=== PATIENT | female | born 1935 | race Caucasian/White ===

== ENCOUNTER 2018-03-01 20:12 | Emergency (ER) | payer MEDICARE, OTHER ==
[~2018-03-01] VITALS: Ht 162.6 cm; Wt 90.7 kg
[~2018-03-01 20:12] MED LIST: ACETAMINOPHEN325 M1 PO; ACIPHEX20 MG PO; ALLOPURINOL300 MG PO; ALTOPREV40 MG PO; AMITRIPTYLINE100 MG PO; ARICEPT10 MG PO; ASPIR-LOW81 MG PO; ATIVAN1 MG PO; CALCIUM CITRAT1 EA10 PO; CENTRUM SILVER1 EAC1 PO; CITALOPRAM HBR20 MG PO; CITRACAL + D C1 EACH PO; CITRACAL + D E1 EACH PO; COLCRYS0.6 MG PO; CYANOCOBAL1000 MCG/M IM; CYMBALTA30 MG PO; DIAZEPAM5 MG PO; DILTIAZEM 24HR180 M1 PO; DILTIAZEM ER180 M1 PO; DIOVAN40 MG PO; DIOVAN80 MG PO; DITROPAN XL5 MG PO; FERROUS SULFAT325 MG PO; FORTAMET500 MG PO; HYDROMORPHONE HC2 MG PO; I-VITE PROTECT1 EACH PO; LASIX40 MG PO; LEVOXYL50 MCG PO; LORAZEPAM1 MG PO; MACULAR VITAMI1 EACH PO; NITROSTAT0.4 MG SL; POTASSIUM CHLO20 ME1 PO; QUETIAPINE FUMA50 MG PO; SEROQUEL25 MG PO; SEROQUEL50 MG PO; TOPROL XL50 MG PO; TRAMADOL HCL50 MG PO; VALIUM2 MG PO; VICODIN ES 7.51 EACH PO
== END 2018-03-01 21:32 | disposition home or self-care (01) ==
LOC: ED 20:12
DX: S51.812A Laceration without foreign body of left forearm, initial encounter (principal); I10 Essential (primary) hypertension; E11.9 Type 2 diabetes mellitus without complications; E78.5 Hyperlipidemia, unspecified; Z90.49 Acquired absence of other specified parts of digestive tract; Z90.710 Acquired absence of both cervix and uterus; Z86.73 Personal history of transient ischemic attack (TIA), and cerebral infarction without residual deficits; Z88.2 Allergy status to sulfonamides; Z88.5 Allergy status to narcotic agent; Z79.899 Other long term (current) drug therapy; W19.XXXA Unspecified fall, initial encounter; Y92.000 Kitchen of unspecified non-institutional (private) residence as the place of occurrence of the external cause
CPT/HCPCS: 80053; 85025; 99283; G0480

== ENCOUNTER 2018-05-17 12:10 | Emergency (ER) | payer MEDICARE, OTHER ==
[~2018-05-17] VITALS: Ht 162.6 cm; Wt 90.7 kg
--- OUTSIDE RECORDS SUMMARY | ~2018-05-17 | XMS | Encounter Summary ---
Demographics + + + | Address | [address] | | | [place] [address] | + + + | Home Phone | | + + + | Preferred Language | Unknown | + + + | Marital Status | | + + + | [employer] Affiliation | 1077 | + + + | Race | Unknown | + + + | Ethnic Group | Unknown | + + + Author + + + | Author | [facility] [employer] | + + + | Organization | [facility] [employer] [facility] | + + + | Address | Unknown | + + + | Phone | Unavailable | + + + Support + + + + + | Name | Relationship | Address | Phone | + + + + + | Guevara Ceron | ECON | [address] | | | D | | [place] | | | | | [address] | | + + + + + Care Team Providers + +------+ + | Care Router Machine Operator Name | Role | Phone | + +------+ + | Shantanu Bermudez MD | PCP | | + +------+ + Reason for Visit +--------+ + | Reason | Comments | +--------+ + | Gout | | +--------+ + Encounter Details +--------+---------+ + + + | Date | Type | Department | Care Team | Description | +--------+---------+ + + + | 02// | Office | [facility] | [place], | High risk medication | | 2019 | Visit | Rheumatology [address] | Brittanie Lacey, AUTOMATIC PATTERN EDGER [address] | use (Primary Dx); | | | | [address] | [address] [facility] [address] | Chronic gout without | | | | [place] [address] | [place] [address] | tophus, unspecified | | | | [phone] | [phone] | cause, unspecified | | | | | | site; Long-term use | | | | | | of high-risk | | | | | | medication; CKD | | | | | | (chronic kidney | | | | | | disease) stage 3, | | | | | | GFR 30-59 ml/min | | | | | | (HCC) | +--------+---------+ + + + Social History + +-------+ +--------+------+ | Tobacco Use | Types | Packs/Day | Years | Date | | | | | Used | | + +-------+ +--------+------+ | Never Smoker | | | | | + +-------+ +--------+------+ + +---+---+---+ | Smokeless Tobacco: | | | | | Never Used | | | | + +---+---+---+ + + +---------+ + | Alcohol Use | Drinks/We | oz/Week | Comments | | | ek | | | + + +---------+ + | Yes | 14 | 8.4 | 2 glasses wine daily | | | Glasses | | | | | of wine | | | + + +---------+ + + + + | Sex Assigned at | Date Recorded | | | | + + + | Not on file | | + + + as of this encounter Last Filed Vital Signs + + + + | Vital Sign | Reading | Time Taken | + + + + | Blood Pressure | 132/66 | 04/04/2018 9:45 AM PST | + + + + | Pulse | 56 | 04/04/2018 9:45 AM PST | + + + + | Temperature | 36.3 C (97.4 F) | 04/04/2018 9:45 AM PST | + + + + | Respiratory Rate | - | - | + + + + | Oxygen Saturation | - | - | + + + + | Inhaled Oxygen | - | - | | Concentration | | | + + + + | Weight | 87.1 kg (192 lb) | 04/04/2018 9:45 AM PST | + + + + | Height | 157.5 cm (5' 2") | 04/04/2018 9:45 AM PST | + + + + | Body Mass Index | 35.12 | 04/04/2018 9:45 AM PST | + + + + in this encounter Instructions Patient Instructions - Marycruz Jackson CMA - 04/04/2018 9:40 AM PSTWe hope that you have experienced exceptional care today and that you found our service to be courteous and helpfu l. If you have any questions you can send us a message/request using [employer] or call our o guille at [phone]. To reach Marycruz MORALES type extension [phone]. If you are unable to reach a nurse during clinic hours, please leave a detailed message. We check our messages often and return calls in a timely manner during clinic hours. Medication refills- please contact your pharmacy first Orders for labs or imaging: Please remember that Brittanie will only call you if something i s of concern AND needs to be addressed, otherwise results will be discussed at your next of fice visit. You can also look at your results on [facility]. If you are experiencing an emergency, please call 911 in this encounter Progress Notes Brittanie Carreon, AUTOMATIC PATTERN EDGER - 04/04/2018 9:40 AM PSTFormatting of this note may be differe nt from the original. Subjective: Patient ID: Guevara Ceron is a 82 y.o. female. Reason for visit: Gout Here forFollow up Rheumatological History Patient was diagnosed in 2010 with Gout. Had an initial presentation of joint pain, swellin g and stiffness lasting >2 hours. Joint symptoms affected bilateral great toes and hands. Foot pain is so significant that she has difficulty standing or walking, and is unable to pa rticipate in ADL's. Serology: Uric acid 8.6, Elevated acute phase reactants and Negative anti-CCP Pertinent Imaging:OA changes to feet-2010 HPI Last visit:10/02/2017 Changes in overall health since last visit: no Main Concern:Gout- main concern is lower extremity swelling which improves when she keeps l egs elevated in the recliner. She is accompanied today by her sone and he reports that they are now receiving in home care for ADL's. She does report that she is taking allopurinol as instructed and no gout flares since last visit. Uric acid in 2017 was on target at 5.2 mg/dl (target < 6 mg/dl) Current medications:Allopurinol 300 mg QOD, Colchicine 0.6 mg 1 tab tid PRN gout flare . Previous Medications tried and failed: No previous gout medications tried The following portions of the patient's history were reviewed and updated as appropriate an d is available elsewhere in the record: allergies, current medications, past family history, past social history, past surgical history and problem list. Past Medical History Diagnosis Date Anemia, iron deficiency 06/27/2013 CAD (coronary artery disease) 10/12/2014 Diabetes mellitus, type 2 (HCC) Difficult intubation Gout Hyperkalemia 06/26/2013 Hyperlipidemia Hypertension Joint pain MRSA (methicillin resistant Staphylococcus aureus) Other chronic pain Primary osteoarthritis involving multiple joints 07/19/2015 Renal insufficiency - June2013: Cr 1.6, EGFR 33 06/24/2013 Visual disturbance 01/2017 macular degneration, glaucoma Review of Systems Constitutional: Negative for fatigue and fever. HENT: Negative for mouth sores and sore throat. Eyes: Negative for pain and redness. Respiratory: Negative for cough and shortness of breath. Cardiovascular: Negative for chest pain. Gastrointestinal: Negative for abdominal pain and blood in stool. Genitourinary: Negative for dysuria and hematuria. Musculoskeletal: Positive for arthralgias (hands, knees and feet) and joint swelling (feet) . Skin: Negative for rash. Neurological: Negative for numbness and headaches. Psychiatric/Behavioral: The patient is not nervous/anxious. IBrittanie, reviewed the above ROS. Objective: Physical Exam Constitutional: She is oriented to person, place, and time. She appears well-developed and well-nourished. Accompanied today by son Rony, who is present during entire visit. HENT: Head: Normocephalic. Mouth/Throat: Oropharynx is clear and moist. Eyes: Pupils are equal, round, and reactive to light. Conjunctivae are normal. Neck: Normal range of motion. Neck supple. Cardiovascular: Normal rate, regular rhythm and normal heart sounds. 1-2+ pitting edema, no open wounds Pulmonary/Chest: Effort normal and breath sounds normal. Musculoskeletal: Normal range of motion. Musculoskeletal examination of the RIGHT and LEFT upper extremity, RIGHT and LEFT lower ext remity, spine, ribs ,pelvis ,head and neck was performed Musculoskeletal examination reveals no synovitis with no tenderness,soft tissue swelling or instability in all the joints . No tophi Musculoskeletal examination reveals degenerative changes hands and feet. Using FWW Lymphadenopathy: Head (right side): No submandibular adenopathy present. Head (left side): No submandibular adenopathy present. Neurological: She is alert and oriented to person, place, and time. Skin: Skin is warm, dry and intact. hemosiderotic changes on the legs, multiple areas of bruising and scabs on lower extremitie s. Joint Exam Labs reviewed in [facility] --01/11/2018 Reviewed chart notes, labs and imaging form other provider(s) since the last visit. Assessment and Plan: Visit Diagnoses and Associated Orders: Chronic gout without tophus No clinical evidence of active disease on today's exam Continue allopurinol 300 mg QOD. Dose decreased due to CKD. Continue target uric acid <6 mg/dl Return to clinic 6 months CKD (chronic kidney disease) stage 3, GFR 30-59 ml/min ([facility]) CKD-St3, followed by and Josue JUARES Risks and benefits of a treatment plan were explained to patient. Patient will follow up with their primary care physician in regards to non-rheumatological symptoms listed under review of systems. Patient was advised to contact our office if there are any change in their symptoms. This document has been prepared with [employer] recognition system. The possibility of "s ound alike" tag machine operator errors, and additions, or deletions may occur. If there is any que stion with respect to clarity of the message being conveyed, please contact me directly for clarification. in this encounter Plan of Treatment +--------+---------+ + + + | Date | Type | Specialty | Care Team | Description | +--------+---------+ + + + | 07/26/ | Office | Nephrology | Stoney Rojas, | | | 2019 | Visit | | [address] | | | | | | [address] | | | | | | [place] [address] | | | | | | [phone] | | | | | | | | +--------+---------+ + + + | 10/03/ | Office | Rheumatology | Moralesmelanymannydominic, | | | 2018 | Visit | | [address] | | | | | | [facility] | | | | | | [place] [address] | | | | | | [phone] | | | | | | | | +--------+---------+ + + + | 10/17/ | Office | Cardiology | KuldipKathrin | | | 2018 | Visit | | [address] | | | | | | [address] | | | | | | [place] [address] | | | | | | [phone] | | | | | | | | +--------+---------+ + + + + +--------+ + + | Name | Priori | Associated Diagnoses | Order Schedule | | | ty | | | + +--------+ + + | CBC W/Auto Diff (Reflex to | Routin | High risk | Every 12 Weeks for 4 | | Manual) | e | medication use | Occurrences | | | | Chronic gout without | starting 04/04/2018 | | | | tophus, unspecified | until 03/28/2019, 1 | | | | cause, unspecified | completed | | | | site Long-term use | | | | | of high-risk | | | | | medication | | + +--------+ + + | Comprehensive metabolic panel | Routin | High risk | Every 12 Weeks for 4 | | | e | medication use | Occurrences | | | | Chronic gout without | starting 04/04/2018 | | | | tophus, unspecified | until 03/28/2019, 1 | | | | cause, unspecified | completed | | | | site Long-term use | | | | | of high-risk | | | | | medication | | + +--------+ + + | Sedimentation rate, automated | Routin | High risk | Every 12 Weeks for 4 | | | e | medication use | Occurrences | | | | Chronic gout without | starting 04/04/2018 | | | | tophus, unspecified | until 03/28/2019, 1 | | | | cause, unspecified | completed | | | | site Long-term use | | | | | of high-risk | | | | | medication | | + +--------+ + + | Uric acid | Routin | High risk | Every 16 weeks for 4 | | | e | medication use | Occurrences | | | | Chronic gout without | starting 04/04/2018 | | | | tophus, unspecified | until 03/28/2019, 1 | | | | cause, unspecified | completed | | | | site Long-term use | | | | | of high-risk | | | | | medication | | + +--------+ + + as of this encounter Procedures + +--------+ + + + | Procedure Name | Priori | Date/Time | Associated Diagnosis | Comments | | | ty | | | | + +--------+ + + + | SEDIMENTATION RATE, | Routin | 04/04/2018 | High risk | Results for this | | AUTOMATED | e | 9:59 AM | medication use | procedure are in the | | | | PST | Chronic gout without | results section. | | | | | tophus, unspecified | | | | | | cause, unspecified | | | | | | site Long-term use | | | | | | of high-risk | | | | | | medication | | + +--------+ + + + | CBC W/AUTO DIFF | Routin | 04/04/2018 | High risk | Results for this | | (REFLEX TO MANUAL) | e | 9:59 AM | medication use | procedure are in the | | | | PST | Chronic gout without | results section. | | | | | tophus, unspecified | | | | | | cause, unspecified | | | | | | site Long-term use | | | | | | of high-risk | | | | | | medication | | + +--------+ + + + | URIC ACID | Routin | 04/04/2018 | High risk | Results for this | | | e | 9:59 AM | medication use | procedure are in the | | | | PST | Chronic gout without | results section. | | | | | tophus, unspecified | | | | | | cause, unspecified | | | | | | site Long-term use | | | | | | of high-risk | | | | | | medication | | + +--------+ + + + | COMPREHENSIVE | Routin | 04/04/2018 | High risk | Results for this | | METABOLIC PANEL | e | 9:59 AM | medication use | procedure are in the | | | | PST | Chronic gout without | results section. | | | | | tophus, unspecified | | | | | | cause, unspecified | | | | | | site Long-term use | | | | | | of high-risk | | | | | | medication | | + +--------+ + + + in this encounter Results Uric acid (04/04/2018 9:59 AM) + +-------+ + + | Component | Value | Ref Range | Performed At | + +-------+ + + | URIC ACID | 4.3 | 2.2 - 7.1 mg/dL | [facility] | | | | | LABORATORY | + +-------+ + + + + | Specimen | + + | Blood | + + + + + + + | Performing | Address | City/State/Zipcode | Phone Number | | Organization | | | | + + + + + | [facility] | [address] | [place] [address] | [phone] | | LABORATORY | [address] | | | + + + + + Sedimentation rate, automated (04/04/2018 9:59 AM) + +-------+ + + | Component | Value | Ref Range | Performed At | + +-------+ + + | ESR | 24 | 0 - 30 mm/h | [facility] | | | | | LAB[facility]ATORY | + +-------+ + + + + | Specimen | + + | Blood | + + + + + + + | Performing | Address | City/State/Zipcode | Phone Number | | Organization | | | | + + + + + | [facility] | [address] | [place] [address] | [phone] | | LABORATORY | [address] | | | + + + + + Comprehensive metabolic panel (04/04/2018 9:59 AM) + + + + + | Component | Value | Ref Range | Performed At | + + + + + | SODIUM | 142 | 135 - 145 mmol/L | [facility] | | | | | LABORATORY | + + + + + | POTASSIUM | 4.4 | 3.5 - 4.9 mmol/L | [facility] | | | | | LABORATORY | + + + + + | CHLORIDE | 106 | 99 - 109 mmol/L | [facility] | | | | | LABORATORY | + + + + + | CO2 | 29 | 23 - 32 mmol/L | [facility] | | | | | LAB[facility]AT[facility] | + + + + + | ANION GAP AGAP | 11 | 5 - 20 mmol/L | [facility] | | | | | LAB[facility] | + + + + + | GLUCOSE | 109 (H) | 65 - 99 mg/dL | [facility] | | | | | LAB[facility] | + + + + + | BUN | 31 (H) | 8 - 25 mg/dL | [facility] | | | | | LAB[facility]ATORY | + + + + + | CREATININE | 1.4 (H) | 0.50 - 1.00 mg/dL | [facility] | | | | | LAB[facility] | + + + + + | BUN/CREAT | 22 | | [facility] | | | | | LAB[facility] | + + + + + | CALCIUM | 9.8 | 8.5 - 10.5 mg/dL | [facility] | | | | | LAB[facility] | + + + + + | TOTAL PROTEIN | 6.5 | 6.3 - 8.2 g/dL | [facility] | | | | | LAB[facility] | + + + + + | Albumin | 3.4 | 3.3 - 4.8 g/dL | [facility] | | | | | LAB[facility] | + + + + + | GLOBULIN | 3.1 | 1.3 - 4.9 g/dL | [facility] | | | | | LAB[facility] | + + + + + | A/G | 1.1 | 1.0 - 2.4 | [facility] | | | | | LAB[facility] | + + + + + | TBIL | 0.4 | 0.1 - 1.5 mg/dL | [facility] | | | | | LAB[facility] | + + + + + | ALK PHOS | 72 | 35 - 115 U/L | [facility] | | | | | LAB[facility] | + + + + + | AST | 13 | 10 - 45 U/L | [facility] | | | | | LAB[facility]AT[facility] | + + + + + | ALT | 16 | 10 - 65 U/L | [facility] | | | | | LABORATORY | + + + + + | EGFR | 36 (L)Comment: GFR <60: | >60 mL/min/1.73_m2 | [facility] | | | CHRONIC KIDNEY DISEASE, | | LABORATORY | | | IF FOUND OVER A 3 MONTH | | | | | PERIOD. GFR <15: KIDNEY | | | | | FAILURE. FOR | | | | | AMERICANS, MULTIPLY THE | | | | | CALCULATED GFR BY 1.210. | | | | | This eGFR is calculated | | | | | using the MDRD IDWV | | | | | traceable equation. | | | + + + + + + + | Specimen | + + | Blood | + + + + + + + | Performing | Address | City/State/Zipcode | Phone Number | | Organization | | | | + + + + + | [facility] | [address] | [place] [address] | [phone] | | LABORATORY | [address] | | | + + + + + CBC W/Auto Diff (Reflex to Manual) (04/04/2018 9:59 AM) + + + + + | Component | Value | Ref Range | Performed At | + + + + + | WBC | 6.98 | 3.80 - 11.00 10*3/uL | [facility] | | | | | LABORATORY | + + + + + | RBC | 3.94 | 3.70 - 5.10 10*6/uL | [facility] | | | | | LAB[facility] | + + + + + | HGB | 12.6 | 11.3 - 15.5 g/dL | [facility] | | | | | LABORATORY | + + + + + | HCT | 38.2 | 34.0 - 46.0 % | [facility] | | | | | LABORATORY | + + + + + | MCV | 97.0 | 80.0 - 100.0 fL | [facility] | | | | | LABORATORY | + + + + + | MCH | 31.9 | 27.0 - 34.0 pg | [facility] | | | | | LAB[facility]ATORY | + + + + + | MCHC | 32.9 | 32.0 - 35.5 g/dL | [facility] | | | | | LAB[facility]ORY | + + + + + | RDW SD | 45.9 | 37 - 53 fL | [facility] | | | | | LAB[facility]ATORY | + + + + + | PLT | 149 (L) | 150 - 400 10*3/uL | [facility] | | | | | LAB[facility]ATORY | + + + + + | MPV | 8.9 | fL | [facility] | | | | | LAB[facility] | + + + + + | DIFF TYPE | AUTOMATED | | [facility] | | | | | LAB[facility] | + + + + + | NEUTROPHILS | 62.14 | % | [facility] | | | | | [facility] | + + + + + | LYMPHOCYTES | 25.87 | % | [facility] | | | | | [facility] | + + + + + | MONOCYTES | 7.12 | % | [facility] | | | | | [facility] | + + + + + | EOSINOPHILS | 4.33 | % | [facility] | | | | | LAB[facility] | + + + + + | BASOPHILS | 0.54 | % | [facility] | | | | | LAB[facility]ATORY | + + + + + | NEUTROPHILS ABS | 4.34 | 1.90 - 7.40 10*3/uL | [facility] | | | | | LAB[facility] | + + + + + | LYMPHOCYTES ABS | 1.81 | 1.00 - 3.90 10*3/uL | [facility] | | | | | LAB[facility] | + + + + + | MONOCYTES ABS | 0.50 | 0.00 - 0.80 10*3/uL | [facility] | | | | | LAB[facility] | + + + + + | EOSINOPHILS ABS | 0.30 | 0.00 - 0.50 10*3/uL | [facility] | | | | | LAB[facility]ORY | + + + + + | BASOPHILS ABS | 0.04 | 0.00 - 0.10 10*3/uL | [facility] | | | | | LAB[facility]ATORY | + + + + + + + | Specimen | + + | Blood | + + + + + + + | Performing | Address | City/State/Zipcode | Phone Number | | Organization | | | | + + + + + | [facility] | [address] | [place] [address] | [phone] | | LABORATORY | [address] | | | + + + + + in this encounter Visit Diagnoses + + | Diagnosis | + + | High risk medication use - Primary | + + | Encounter for long-term (current) use of other medications | + + | Chronic gout without tophus, unspecified cause, unspecified site | + + | Long-term use of high-risk medication | + + | CKD (chronic kidney disease) stage 3, GFR 30-59 ml/min ([facility]) | + + | Chronic kidney disease, Stage III (moderate) | + +
--- OUTSIDE RECORDS SUMMARY | ~2018-05-17 | XMS | Clinical Summary ---
Demographics + + + | Address | [address] | | | [place] [address] | + + + | Home Phone | | + + + | Preferred Language | Unknown | + + + | Marital Status | | + + + | Muslim Affiliation | PRO | + + + | Race | White | + + + | Ethnic Group | Not or | + + + Author + + + | Author | [facility] | + + + | Organization | [facility] | + + + | Address | Unknown | + + + | Phone | Unavailable | + + + Support + + + + + | Name | Relationship | Address | Phone | + + + + + | TIANNA CERON | ECON | Unknown | | + + + + + | Omaira Ceron | ECON | [address] | | | | | [place], [place] | | | | | [address] | | + + + + + Care Team Providers + +------+ + | Care Telesales Representative Name | Role | Phone | + +------+ + | Shantanu Bermudez MD | PP | | + +------+ + Source Comments [facility] and [facility] Allergies + + + + + + | Active Allergy | Reactions | Severity | Noted | Comments | | | | | Date | | + + + + + + | Oxycodone | | | 03/02/19 | | | | | | 11 | | + + + + + + Current Medications + + +-------+---------+------+------+-------+ | Prescription | Sig. | Disp. | Refills | Star | End | Statu | | | | | | t | Date | s | | | | | | Date | | | + + +-------+---------+------+------+-------+ | multivitamin Oral | Take 1 Tab by mouth | | | | | Activ | | Tablet | once daily. | | | | | e | + + +-------+---------+------+------+-------+ | valsartan (DIOVAN) | Take 40 mg by mouth | | | | | Activ | | 40 mg Oral Tablet | once daily. | | | | | e | + + +-------+---------+------+------+-------+ | Fluoxetine HCl 20 | Take 20 mg by mouth | | | | | Activ | | mg Oral Tablet | once daily. | | | | | e | + + +-------+---------+------+------+-------+ | furosemide 40 mg | Take 40 mg by mouth | | | | | Activ | | Oral Tablet | once daily. | | | | | e | + + +-------+---------+------+------+-------+ | LEVOTHYROXINE | Take 50 mg by mouth | | | 11/0 | | Activ | | SODIUM (LEVOXYL | once daily. | | | 3/20 | | e | | ORAL) | | | | 10 | | | + + +-------+---------+------+------+-------+ | metformin SR 750 | Take 1,500 mg by | | | | | Activ | | mg Oral Tablet | mouth once daily. | | | | | e | | Sustained Release 24 | Administer with | | | | | | | hrIndications: at | evening meal. | | | | | | | night | Indications: at | | | | | | | | night | | | | | | + + +-------+---------+------+------+-------+ | metoprolol | Take 50 mg by mouth | | | | | Activ | | succinate 50 mg Oral | once daily. | | | | | e | | Tablet Sustained | | | | | | | | Release 24 hr | | | | | | | + + +-------+---------+------+------+-------+ | amitriptyline 100 | Take 100 mg by mouth | | | | | Activ | | mg Oral Tablet | once daily at | | | | | e | | | bedtime. | | | | | | + + +-------+---------+------+------+-------+ | Aspirin 81 mg Oral | Take 81 mg by mouth | | | | | Activ | | Tablet | once daily. | | | | | e | + + +-------+---------+------+------+-------+ | CYANOCOBALAMIN, | Take by mouth. | | | 11/0 | | Activ | | VITAMIN B-12, | | | | 3/20 | | e | | (VITAMIN B-12 ORAL) | | | | 10 | | | + + +-------+---------+------+------+-------+ | rabeprazole | Take 20 mg by mouth | | | 11/1 | | Activ | | (ACIPHEX) 20 mg Oral | as needed. | | | 7/20 | | e | | Tablet, Delayed | | | | 10 | | | | Release (E.C.) | | | | | | | + + +-------+---------+------+------+-------+ | nitroglycerin | Place 0.3 mg under | | | 11 | | Activ | | (NITROQUICK) 0.3 mg | tongue as needed. Do | | | 7/20 | | e | | Sublingual Tablet, | not crush. Place | | | 10 | | | | Sublingual | under tongue and | | | | | | | | allow to dissolve. | | | | | | | | Administer every 5 | | | | | | | | minutes for a | | | | | | | | maximum of 3 doses | | | | | | | | in 15 minutes. | | | | | | + + +-------+---------+------+------+-------+ | donepezil | Take 10 mg by mouth | | | | | Activ | | (ARICEPT) 10 mg Oral | once daily in the | | | | | e | | Tablet | evening. | | | | | | + + +-------+---------+------+------+-------+ | diltiazem CD 24 | Take 180 mg by mouth | | | | | Activ | | hour release 180 mg | once daily. | | | | | e | | Oral Capsule, Sust. | | | | | | | | Release 24 hr | | | | | | | + + +-------+---------+------+------+-------+ | potassium chloride | Take 20 mEq by mouth | | | | | Activ | | SR (KLOR-CON M20) | once daily. | | | | | e | | 20 mEq Oral Tab | | | | | | | | Sust.Rel. | | | | | | | | Particle/Crystal | | | | | | | + + +-------+---------+------+------+-------+ | CALCIUM | Take 1 Tab by mouth | | | 11/ | | Activ | | CITRATE/VITAMIN D3 | once daily. | | | 720 | | e | | (CALCIUM CITRATE + D | | | | 10 | | | | ORAL) | | | | | | | + + +-------+---------+------+------+-------+ | traMADol 50 mg | Take 50 mg by mouth | | | | | Activ | | Oral Tablet | two times daily. | | | | | e | + + +-------+---------+------+------+-------+ | DULoxetine | Take 30 mg by mouth | | | | | Activ | | (CYMBALTA) 30 mg | once daily. | | | | | e | | Oral Capsule, | | | | | | | | Delayed | | | | | | | | Release(E.C.) | | | | | | | + + +-------+---------+------+------+-------+ | COLCHICINE | Take by mouth. | | | | | Activ | | (COLCRYS ORAL) | | | | | | e | + + +-------+---------+------+------+-------+ | allopurinol 300 mg | Take 150 mg by mouth | | | | | Activ | | Oral Tablet | once daily. | | | | | e | + + +-------+---------+------+------+-------+ Active Problems + + + | Problem | Noted Date | + + + | Lumbar spinal stenosis | 12/29/2009 | + + + Family History + + +------+ + | Medical History | Relation | Name | Comments | + + +------+ + | Cancer | Father | | | + + +------+ + | Cancer | Mother | | | + + +------+ + + +------+--------+ + | Relation | Name | Status | Comments | + +------+--------+ + | Father | | | | + +------+--------+ + | Mother | | | | + +------+--------+ + Social History + +-------+ +--------+------+ | [...] | | + + +---------+ + | No | | | | + + +---------+ + + + + | Sex Assigned at | Date Recorded | | | | + + + | Not on file | | + + + Last Filed Vital Signs + + + + | Vital Sign | Reading | Time Taken | + + + + | Blood Pressure | 115/57 | 01/25/2011 12:53 PM PST | + + + + | Pulse | 54 | 01/25/2011 12:53 PM PST | + + + + | Temperature | 37.3 C (99.1 F) | 03/02/2010 2:18 PM PST | + + + + | Respiratory Rate | 13 | 01/25/2011 12:21 PM PST | + + + + | Oxygen Saturation | 100% | 01/18/2010 3:04 PM PST | + + + + | Inhaled Oxygen | - | - | | Concentration | | | + + + + | Weight | 84.8 kg (187 lb) | 01/25/2011 12:21 PM PST | + + + + | Height | 158.8 cm (5' 2.5") | 01/25/2011 12:21 PM PST | + + + + | Body Mass Index | 33.66 | 01/25/2011 12:21 PM PST | + + + + Plan of Treatment + + + + + | Health Maintenance | Due Date | Last Done | Comments | + + + + + | Pneumococcal (Adult) | | | | | (1 of 2 - PCV13) | 9 | | | + + + + + | Influenza (Flu) | | | | | vaccination (#1) | 8 | | | + + + + + Results Not on filefrom Last 3 Months Insurance + +--------+ +--------+ + + | Payer | Benefi | Subscriber | Type | Phone | Address | | | t Plan | ID | | | | | | / | | | | | | | Group | | | | | + +--------+ +--------+ + + | MEDICARE | MEDICA | xxxxxxxxxxx | Medica | +- | [address] | | | RE A & | | re | [phone] | [place] [address] | | | B | | | | | + +--------+ +--------+ + + | [employer] [place] | MUTUAL | [phone] | Indemn | [phone] | [employer] [place] | | MEDICARE SUPPL | OF | | ity | [address] | | | [place] | | | | [phone] | | | MEDICA | | | | | | | RE | | | | | | | SUPPL | | | | | + +--------+ +--------+ + + + +--------+ +--------+ + + | Guarantor Name | Accoun | Relation to | Date | Phone | Billing Address | | | t Type | Patient | of | | | | | | | | | | + +--------+ +--------+ + + | OFELIA CERON | Person | Self [birth year] | Home: | [address] | | | al[place]Fam | | 1936 | [phone] | [place] | | | [place] | | [phone] | + +--------+ +--------+ + +
--- OUTSIDE RECORDS SUMMARY | ~2018-05-17 | XMS | Clinical Summary ---
Demographics + + + | Address | [address] | | | [place] [address] | + + + | Home Phone | | + + + | Preferred Language | Unknown | + + + | Marital Status | | + + + | Taoist Affiliation | 1077 | + + + | Race | Unknown | + + + | Ethnic Group | Unknown | + + + Author + + + | Author | [facility] | | | and [place] | + + + | Organization | [facility] | | | and [place] | + + + | Address | Unknown | + + + | Phone | Unavailable | + + + Support + + + + + | Name | Relationship | Address | Phone | + + + + + | Nav Ceron | ECON | [address] | | | | | [place] | | | | | [address] | | + + + + + Care Team Providers + +------+ + | Care Line Closer Name | Role | Phone | + +------+ + | Lauri Brandon DO | PP | Unavailable | + +------+ + Allergies + + + + + + | Active Allergy | Reactions | Severity | Noted | Comments | | | | | Date | | + + + + + + | Milan Inhibitors | | | 03/26/19 | | | | | | 13 | | + + + + + + | Sulfa Antibiotics | | | 03/26/19 | | | | | | 13 | | + + + + + + Current Medications + + +---------+---------+------+------+-------+ | Prescription | Sig. | Disp. | Refills | Star | End | Statu | | | | | | t | Date | s | | | | | | Date | | | + + +---------+---------+------+------+-------+ | metoprolol | Take 50 mg by mouth | | | | | Activ | | succinate | Daily. | | | | | e | | (TOPROL-XL) 50 mg 24 | | | | | | | | hr tablet | | | | | | | + + +---------+---------+------+------+-------+ | furosemide (LASIX) | Take 40 mg by mouth | | | | | Activ | | 40 mg tablet | every 48 hours. | | | | | e | + + +---------+---------+------+------+-------+ | potassium chloride | Take 20 mEq by mouth | | | | | Activ | | (K-DUR) 20 mEq ER | 2 times daily. | | | | | e | | tablet | | | | | | | + + +---------+---------+------+------+-------+ | Multiple | Take 1 tablet by | | | | | Activ | | Vitamins-Minerals | mouth Daily. | | | | | e | | (CENTRUM SILVER) | | | | | | | | TABS | | | | | | | + + +---------+---------+------+------+-------+ | Multiple | Take 1 tablet by | | | | | Activ | | Minerals-Vitamins | mouth Daily. | | | | | e | | (CITRACAL PLUS BONE | | | | | | | | DENSITY) TABS | | | | | | | + + +---------+---------+------+------+-------+ | diltiazem | Take 180 mg by mouth | | | | | Activ | | (CARDIZEM CD) 180 mg | Daily. | | | | | e | | 24 hr capsule | | | | | | | + + +---------+---------+------+------+-------+ | allopurinol | Take 300 mg by mouth | | | | | Activ | | (ZYLOPRIM) 300 mg | every 48 hours. | | | | | e | | tablet | | | | | | | + + +---------+---------+------+------+-------+ | lovastatin | Take 40 mg by mouth | | | | | Activ | | (MEVACOR) 40 MG | nightly. | | | | | e | | tablet | | | | | | | + + +---------+---------+------+------+-------+ | QUEtiapine | Take 100 mg by mouth | | | | | Activ | | (SEROQUEL) 100 mg | Daily. | | | | | e | | tablet | | | | | | | + + +---------+---------+------+------+-------+ | losartan (COZAAR) | Take 100 mg by mouth | | | | | Activ | | 100 MG tablet | Daily. | | | | | e | + + +---------+---------+------+------+-------+ | Probiotic Product | Take by mouth. | | | | | Activ | | (PROBIOTIC PO) | | | | | | e | + + +---------+---------+------+------+-------+ | traMADol (ULTRAM) | Take 50 mg by mouth | | | | | Activ | | 50 mg tablet | every 6 hours as | | | | | e | | | needed for Pain. | | | | | | + + +---------+---------+------+------+-------+ | colchicine | Take 0.6 mg by mouth | | | | | Activ | | (COLCRYS) 0.6 mg | Daily. | | | | | e | | tablet | | | | | | | + + +---------+---------+------+------+-------+ | citalopram | Take 20 mg by mouth | | | | | Activ | | (CELEXA) 20 mg | Daily. | | | | | e | | tablet | | | | | | | + + +---------+---------+------+------+-------+ | oxybutynin | Take 5 mg by mouth 3 | | | | | Activ | | (DITROPAN) 5 mg | times daily. | | | | | e | | tablet | | | | | | | + + +---------+---------+------+------+-------+ | Multiple | Take by mouth. | | | | | Activ | | Vitamins-Minerals | | | | | | e | | (MACUVITE) TABS | | | | | | | + + +---------+---------+------+------+-------+ | gabapentin | Take 1 capsule by | 180 | 2 | 10/ | | Activ | | (NEURONTIN) 300 mg | mouth 2 times daily. 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 | 10/05/2015 | + + + Family History + + +------+ + | Medical History | Relation | Name | Comments | + + +------+ + | No known problems | Brother | | | + + +------+ + | Cancer | Father | | | + + +------+ + | No known problems | Maternal | | | | | Grandfath | | | | | er | | | + + +------+ + | No known problems | Maternal | | | | | Grandmoth | | | | | er | | | + + +------+ + | Alzheimer's disease | Mother | | | + + +------+ + | Diabetes | Other | | FAMILY HX | + + +------+ + | Heart disease | Other | | FAMILY HX | + + +------+ + | Hypertension | Other | | FAMILY HX | + + +------+ + | No known problems | Paternal | | | | | Grandfath | | | | | er | | | + + +------+ + | No known problems | Paternal | | | | | Grandmoth | | | | | er | | | + + +------+ + | No known problems | Son | | | + + +------+ + + +------+ + + | Relation | Name | Status | Comments | + +------+ + + | Brother | | Alive | | + +------+ + + | Brother | | | | + +------+ + + | Father | | | CANCER | | | | (Age | | | | | 79) | | + +------+ + + | Maternal Aunt | | | | + +------+ + + | Maternal Grandfather | | | | + +------+ + + | Maternal Grandmother | | | | + +------+ + + | Maternal Uncle | | | | + +------+ + + | Mother | | | ALZHEIMERS | | | | (Age | | | | | 96) | | + +------+ + + | Other | | | | + +------+ + + | Paternal Aunt | | | | + +------+ + + | Paternal Grandfather | | | | + +------+ + + | Paternal Grandmother | | | | + +------+ + + | Paternal Uncle | | | | + +------+ + + | Son | | Alive | | + +------+ + + | Son | | | | + +------+ + + Social History + +-------+ +--------+------+ [...] + + +---------+ + | Yes | 7 | 4.2 | | | | Standard | | | | | drinks or | | | | | | | | | | equivalen | | | | | t | | | + + +---------+ + + + + | Sex Assigned at | Date Recorded | | | | + + + | Not on file | | + + + Last Filed Vital Signs + + + + | Vital Sign | Reading | Time Taken | + + + + | Blood Pressure | 144/63 | 10/27/20151447 PDT | + + + + | Pulse | 46 | 10/27/20151447 PDT | + + + + | Temperature | 36.7 C (98.1 F) | 03/26/20121440 PST | + + + + | Respiratory Rate | 18 | 03/26/20121440 PST | + + + + | Oxygen Saturation | - | - | + + + + | Inhaled Oxygen | - | - | | Concentration | | | + + + + | Weight | 90.7 kg (200 lb) | 10/05/20151046 PDT | + + + + | Height | 157.5 cm (5' 2") | 10/05/20151046 PDT | + + + + | Body Mass Index | 36.58 | 10/05/2015 1047 PDT | + + + + Plan of Treatment + + + + + | Health Maintenance | Due Date | Last Done | Comments | + + + + + | Vaccine: | | | | | Dtap/Tdap/Td (1 - | 3 | | | | Tdap) | | | | + + + + + | Vaccine: Zoster (1 | | | | | of 2) | 4 | | | + + + + + | Vaccine: | | | | | Pneumococcal 65+ | 9 | | | | Low/Medium Risk (1 | | | | | of 2 - PCV13) | | | | + + + + + | PRIMARY CARE | | 10/05/2015 | | | OUTREACH-MODERATE | 7 | | | | RISK EVERY 1 YEAR | | | | + + + + + | Vaccine: Influenza | | | | | (#1) | 8 | | | + + + + + | Adult Annual | | | | | Wellness Visit | 8 | | | + + + + + Results Not on filefrom Last 3 Months Insurance + +--------+ +--------+ +---------+ | Payer | Benefi | Subscriber | Type | Phone | Address | | | t Plan | ID | | | | | | / | | | | | | | Group | | | | | + +--------+ +--------+ +---------+ | MEDICARE | MEDICA | [id number] | Medica | [phone] | | | RE | | re | [phone] | | | | PART A | | | | | | | AND B | | | | | + +--------+ +--------+ +---------+ | [employer] [place] | BUDA | [id number] | Indemn | [phone] | | | OF | | ity | 1000 | | | | [place] | | | | | | | MDCR | | | | | | | SUPPL | | | | | + +--------+ +--------+ +---------+ + +--------+ +--------+ + + | Guarantor Name | Accoun | Relation to | Date | Phone | Billing Address | | | t Type | Patient | of | | | | | | | | | | + +--------+ +--------+ + + | OFELIA CERON | Person | Self [birth year] Home: | [address] | | [place] | [place] | | 1936 | [phone] | [place] | | | [place] | | | [phone] | [phone] | + +--------+ +--------+ + +
--- OUTSIDE RECORDS SUMMARY | ~2018-05-17 | XMS | Clinical Summary ---
Demographics + + + | Address | [address] | | | [place] [address] | + + + | Home Phone | | + + + | Preferred Language | Unknown | + + + | Marital Status | | + + + | Synagogue Affiliation | 1077 | + + + | Race | Unknown | + + + | Ethnic Group | Unknown | + + + Author + + + | Author | [facility] | | | and [place] | + + + | Organization | [facility] | | | [...] [place] | | | | | [address] | | + + + + + Care Team Providers + +------+ + | Care Radioisotope Technician Name | Role | Phone | + [...] +--------+ +---------+ | MEDICARE | MEDICA | [id number] | Medica | [phone] | | | | RE | | re | [phone] | | | | PART A | | | | | | | AND B | | | | | + +--------+ +--------+ +---------+ | [employer] [place] | [place] | [id number] | Indemn | [phone] | | | OF | | ity | [address] | | | | [place] | | | | | | | [...] | | | [place] | | | [phone] | [phone] | + +--------+ +--------+ + +
--- OUTSIDE RECORDS SUMMARY | ~2018-05-17 | XMS | Clinical Summary ---
Demographics + + + | Address | [address] | | | [place] [address] | + + + | Home Phone | | + + + | Preferred Language | Unknown | + + + | Marital Status | | + + + | Muslim Affiliation | 1077 | + + + | Race | Unknown | + + + | Ethnic Group | Unknown | + + + Author + + + | Author | [facility] | + + + | Organization | [facility] | + + + | Address | Unknown | + + + | Phone | Unavailable | + + + Support + + + + + | Name | Relationship | Address | Phone | + + + + + | Ofelia Hernandez | ECON | [address] | | | D | | [place] | | | | | [address] | | + + + + + Care Team Providers + +------+ + | Care Electrical Tryout Person Name | Role | Phone | + +------+ + | Shantanu Bermudez MD | PP | | + +------+ + Allergies + + + + + + | Active Allergy | Reactions | Severity | Noted | Comments | | | | | Date | | + + + + + + | Oxycodone | Other (See Comments) | Medium | 06/19/19 | Kidney shut down | | | | | 14 | | + + + + + + | Sulfa Antibiotics | Anaphylaxis | High | 03/26/19 | | | | | | 13 | | + + + + + + Current Medications + + +--------+---------+------+------+-------+ | Prescription | Sig. | Disp. | Refills | Star | End | Statu | | | | | | t | Date | s | | | | | | Date | | | + + +--------+---------+------+------+-------+ | citalopram | Take 20 mg by mouth | | | | | Activ | | (CELEXA) 20 MG | every morning. | | | | | e | | tablet | | | | | | | + + +--------+---------+------+------+-------+ | furosemide (LASIX) | Take 40 mg by mouth | | | | | Activ | | 40 MG tablet | every other day. | | | | | e | + + +--------+---------+------+------+-------+ | lovastatin | Take 40 mg by mouth | | | | | Activ | | (MEVACOR) 40 MG | nightly. | | | | | e | | tablet | | | | | | | + + +--------+---------+------+------+-------+ | oxybutynin | Take 5 mg by mouth | | | | | Activ | | (DITROPAN) 5 MG | daily. | | | | | e | | tablet | | | | | | | + + +--------+---------+------+------+-------+ | colchicine 0.6 MG | Take 0.6 mg by mouth | | | | | Activ | | tabletIndications: | as needed. | | | | | e | | Gout | Indications: Gout | | | | | | + + +--------+---------+------+------+-------+ | nitroGLYCERIN | Place 0.4 mg under | | | | | Activ | | (NITROSTAT) 0.4 MG | the tongue every 5 | | | | | e | | SL tablet | (five) minutes as | | | | | | | | needed. | | | | | | + + +--------+---------+------+------+-------+ | CALCIUM | Take 1 tablet by | | | | | Activ | | CITRATE-VITAMIN D3 | mouth 2 (two) times | | | | | e | | PO | daily. | | | | | | + + +--------+---------+------+------+-------+ | | Take 1 tablet by | | | | | Activ | | Lactobacillus-Inulin | mouth daily. | | | | | e | | (CULTURELLE | | | | | | | | DIGESTIVE HEALTH PO) | | | | | | | + + +--------+---------+------+------+-------+ | potassium chloride | Take 10 mEq by mouth | | | | | Activ | | SA (KCHANDLER HART) | 2 (two) times | | | | | e | | 20 MEQ | daily. | | | | | | | tabletIndications: | | | | | | | | Hypokalemia | | | | | | | + + +--------+---------+------+------+-------+ | cycloSPORINE | Place 1 drop into | | | | | Activ | | (RESTASIS) 0.05 % | both eyes as needed. | | | | | e | | ophthalmic emulsion | | | | | | | + + +--------+---------+------+------+-------+ | acetaminophen | Take 1,000 mg by | | | | | Activ | | (TYLENOL) 500 MG | mouth every evening. | | | | | e | | tablet | | | | | | | + + +--------+---------+------+------+-------+ | losartan (COZAAR) | Take one tablet by | 90 | 3 | 07/0 | | Activ | | 25 MG | mouth every day | tablet | | 2/20 | | e | | tabletIndications: | | | | 18 | | | | BURAK (acute kidney | | | | | | | | injury) (HCC), | | | | | | | | Essential | | | | | | | | hypertension, | | | | | | | | benign, CKD (chronic | | | | | | | | kidney disease) | | | | | | | | stage 3, GFR 30-59 | | | | | | | | ml/min (HCC) | | | | | | | + + +--------+---------+------+------+-------+ | QUEtiapine | Take 1 tablet by | | | 08/0 | | Activ | | (SEROQUEL) 25 MG | mouth daily. | | | 08/31 | | e | | tablet | | | | 18 | | | + + +--------+---------+------+------+-------+ | metoprolol | Take 0.5 tablets by | 45 | 3 | 08/0 | | Activ | | (TOPROL-XL) 25 MG 24 | mouth daily. | tablet | | 11/01 | | e | | hr tablet | | | | 18 | | | + + +--------+---------+------+------+-------+ | gabapentin | Take 300 mg by mouth | | | 08/1 | | Activ | | (NEURONTIN) 300 MG | 2 (two) times | | | 08/31 | | e | | capsule | daily. | | | 18 | | | + + +--------+---------+------+------+-------+ | VASCEPA 1 g CAPS | Take 1 g by mouth 2 | | | 02/1 | | Activ | | | (two) times daily. | | | 20 | | e | | | | | | 19 | | | + + +--------+---------+------+------+-------+ | TRADJENTA 5 MG | | | | / | | Activ | | tablet | | | | 20 | | e | | | | | | 19 | | | + + +--------+---------+------+------+-------+ | allopurinol | Take 1 tablet by | 45 | 1 | 02/2 | | Activ | | (ZYLOPRIM) 300 MG | mouth every other | tablet | | /20 | | e | | tabletIndications: | day. | | | 19 | | | | Chronic gout without | | | | | | | | tophus, unspecified | | | | | | | | cause, unspecified | | | | | | | | site | | | | | | | + + +--------+---------+------+------+-------+ | ALPHA LIPOIC ACID | Take 1 capsule by | | | | | Activ | | PO | mouth daily. | | | | | e | + + +--------+---------+------+------+-------+ | Multiple | Take 1 capsule by | | | | | Activ | | Vitamins-Minerals | mouth daily. | | | | | e | | ([facility] | | | | | | | | PO) | | | | | | | + + +--------+---------+------+------+-------+ | magnesium chloride | Take 1 tablet by | | | | | Activ | | (MAG64) 64 mg EC | mouth 2 (two) times | | | | | e | | tablet | daily. | | | | | | + + +--------+---------+------+------+-------+ | cyanocobalamin | Take 100 mcg by | | | | | Activ | | (VITAMIN B-12) 100 | mouth daily. | | | | | e | | MCG tablet | | | | | | | + + +--------+---------+------+------+-------+ | Cholecalciferol | Take 1,000 Units by | | | | | Activ | | 1000 units capsule | mouth 2 (two) times | | | | | e | | | daily. | | | | | | + + +--------+---------+------+------+-------+ | allopurinol | TAKE ONE TABLET BY | 45 | 0 | 03/ | | Activ | | (ZYLOPRIM) 300 MG | MOUTH EVERY OTHER | tablet | | 20 | | e | | tabletIndications: | DAY | | | 19 | | | | Chronic gout without | | | | | | | | tophus, unspecified | | | | | | | | cause, unspecified | | | | | | | | site | | | | | | | + + +--------+---------+------+------+-------+ Active Problems + + + | Problem | Noted Date | + + + | Bilateral leg edema | 04/15/2018 | + + + | 1st degree AV block | 10/08/2017 | + + + | Sinus bradycardia | 10/08/2017 | + + + | Peripheral polyneuropathy | 04/05/2017 | + + + + + | Overview: Overview: Last Assessment & Plan: -manifests with | | tingling, burning in the feet, symptoms worse at night.-She is | | taking gabapentin, under the care of Last Assessment | | & Plan: -manifests with tingling, burning in the feet, symptoms | | worse at night.-She is taking gabapentin, under the care of | | | + + + + + | Primary osteoarthritis involving multiple joints | 07/19/2015 | + + + + + | Last Assessment & Plan: Stable, continue conservative | | measures.Avoid NSAID's | + + + + + | Chronic gout without tophus | 01/12/2015 | + + + + + | Last Assessment & Plan: No clinical evidence of active | | disease on today's examContinue allopurinol 300 mg QOD. Dose | | decreased due to CKD.Continue target uric acid <6 mg/dlReturn to | | clinic 6 months | + + + + + | Proteinuria | 10/26/2014 | + + + | Atherosclerosis of coronary artery | 10/12/2014 | + + + | Colitis | 12/02/2013 | + + + | CKD (chronic kidney disease) stage 3, GFR 30-59 ml/min ([facility]) | 12/02/2013 | + + + + + | Overview: Overview: Last Assessment & Plan: CKD-St3, followed | | by and Josue JUARES Last Assessment & Plan: | | CKD-St3, followed by and Josue JUARES | | Last Assessment & Plan: CKD-St3, followed by and Josue JUARES | | | + + + + + | Intestinal infection due to Clostridium difficile | 11/30/2013 | + + + | Anemia, iron deficiency | 06/27/2013 | + + + | Essential hypertension, benign | 06/24/2013 | + + + + + | Overview: Overview: Last Assessment & Plan: Hypertension, | | controlled, continue current meds at current doses (diltiazem, | | furosemide, losartan, metoprolol). Last Assessment & Plan: | | Hypertension, controlled, continue current meds at current doses | | (diltiazem, furosemide, losartan, metoprolol). | + + + + + | Mixed hyperlipidemia | 06/24/2013 | + + + + + | Overview: Overview: Last Assessment & Plan: Hyperlipidemia, | | continue current med current dose (lovastatin). Last Assessment | | & Plan: Hyperlipidemia, continue current med current dose | | (lovastatin). | + + + + + | DM2 (diabetes mellitus, type 2) ([facility]) | 06/24/2013 | + + + + + | Overview: Overview: | | Last Assessment & Plan: | | DM2, managed by PCP. | | Last Assessment & Plan: DM2, managed by PCP. | + + + + + | Depression | 06/24/2013 | + + + | Lumbar spinal stenosis | 06/24/2013 | + + + + + | Last Assessment & Plan: DJD, chronic back pain. | + + Resolved Problems + + + + | Problem | Noted | Resolved | | | Date | Date | + + + + | BURAK (acute kidney injury) | 06/21/19 | | | | 17 | 8 | + + + + | CKD (chronic kidney disease) | 01/13/20 | | | | 15 | 7 | + + + + | Abdominal pain, unspecified site | 12/03/19 | | | | 14 | 8 | + + + + + + | Last Assessment & Plan: Reports abdominal pain today | | Has had CT scan of abdomen per | | Has f/u appointment this to discuss results. | + + + + + + | Diarrhea | 12/01/19 | | | | 14 | 4 | + + + + | C. difficile colitis | 12/01/19 | | | | 14 | 4 | + + + + | Frequent loose stools | 12/01/19 | | | | 14 | 4 | + + + + | Acute on chronic renal failure | 06/28/19 | | | | 14 | 4 | + + + + | Hyperkalemia | 06/27/19 | | | | 14 | 4 | + + + + | Renal insufficiency - June2013: Cr 1.6, EGFR 33 | 06/25/19 | | | | 14 | 7 | + + + + Encounters +--------+ + + + + | Date | Type | Specialty | Care Team | Description | +--------+ + + + + | 05/02/ | Refill | | Lauri, | Chronic gout without | | 2018 | | | [facility] | nisha, unspecified | | | | | | cause, unspecified | | | | | | site | +--------+ + + + + | 04/15/ | Office | | Kathrin Christiansen | 1st degree AV block | | 2018 | Visit | | [facility] | (Primary Dx); Sinus | | | | | | bradycardia; Mixed | | | | | | hyperlipidemia; | | | | | | Essential | | | | | | hypertension, | | | | | | benign; Bilateral | | | | | | leg edema; Type 2 | | | | | | diabetes mellitus | | | | | | with stage 3 chronic | | | | | | kidney disease, | | | | | | without long-term | | | | | | current use of | | | | | | insulin ([facility]) | +--------+ + + + + | 04/04/ | Office | | Lauri, | High risk medication | | 2018 | Visit | | [facility] | use (Primary Dx); | | | | | | Chronic gout without | | | | | | tophus, unspecified [...] | | | | | (HCC) | +--------+ + + + + | 04/03/ | Documentati | | Marti Queen MA | Labs Only ([facility] | | 2019 | on Only | | | Labs 03/01/18) | +--------+ + + + + from Last 3 Months Immunizations + + + + | Name | Dates Previously Given | Next Due | + + + + | INFLUENZA, PF | 10/30/2017, 11/21/2016, 11/10/2015, | | | TRIVALENT HIGH DOSE | 11/29/2012 | | | 65 YRS [place] > | | | + + + + | Influenza, Trivalent | 11/04/2009 | | | W/Preservative | | | + + + + | Pneumococcal | 03/25/2015 | | | Conjugate 13-valent | | | + + + + | Tdap | 03/25/2015 | | + + + + | ZOSTER NON-LIVE | 08/22/2017 | | | (ADULT) | | | + + + + Family History + + +------+ + | Medical History | Relation | Name | Comments | + + +------+ + | Cancer | Father | | Lung | + + +------+ + | Hypertension | Father | | | + + +------+ + | Alzheimer's disease | Mother | | | + + +------+ + | Cancer | Mother | | Breast | + + +------+ + | Hypertension | Mother | | | + + +------+ + + +------+ + + | Relation | Name | Status | Comments | + +------+ + + | Father | | | | + +------+ + + | Mother | | | | + +------+ + [...] + + + | Blood Pressure | 118/56 | 04/15/2018 10:10 AM PST | + + + + | Pulse | 59 | 04/15/2018 10:10 AM PST | + + + + | Temperature | 36.3 C (97.4 F) | 04/04/2018 9:45 AM PST | + + + + | Respiratory Rate | 20 | 04/15/2018 10:10 AM PST | + + + + | Oxygen Saturation | 99% | 04/15/2018 10:10 AM PST | + + + + | Inhaled Oxygen | - | - | | Concentration | | | + + + + | Weight | 87.2 kg (192 lb 4.8 | 04/15/2018 10:10 AM PST | | | oz) | | + + + + | Height | 157.5 cm (5' 2") | 04/15/2018 10:10 AM PST | + + + + | Body Mass Index | 35.17 | 04/15/2018 10:10 AM PST | + + + + Plan of Treatment +--------+---------+ + + + | Date | Type | Specialty | Care Team | Description | +--------+---------+ + + + | 07/26/ | Office | | Stoney Rojas, | | | 2018 | Visit | | [facility] | | | | | | [address] | | | | | | [place] [address] | | | | | | [phone] | | | | | | | | +--------+---------+ + + + | 10/03/ | Office | | Lauri, | | | 2018 | Visit | | [address] [address] | | | | | | [facility] | | | | | | [place] [address] | | | | | | [phone] | | | | | | | | +--------+---------+ + + + | 10/17/ | Office | | Kathirn Christiansen | | | 2019 | Visit | | [facility] [address] | | | | | | [address] | | | | | | [place] [address] | | | | | | [phone] | | | | | | | | +--------+---------+ + + + + + + + + | Health Maintenance | Due Date | Last Done | Comments | + + + + + | Diabetic Eye Exam | | | | | | 4 | | | + + + + + | Diabetic Foot Exam | | | | | | 4 | | | + + + + + | DEXA SCAN SCREENING | | | | | | 9 | | | + + + + + | Hemoglobin A1c | | 11/30/2013 | | | | 5 | | | + + + + + | Vaccine: | | 03/25/2015 | | | Pneumococcal 65+ | 7 | | | | Low/Medium Risk (2 | | | | | of 2 - PPSV23) | | | | + + + + + | Vaccine: Zoster (2 | | 08/22/2017 | | | of 2) | 8 | | | + + + + + | Vaccine: | | 03/25/2015 | | | Dtap/Tdap/Td (2 - | 6 | | | | Td) | | | | + + + + + | Vaccine: Influenza | Completed | 10/30/2017, 11/21/2016, | | | | | 11/10/2015, Additional history | | | | | exists | | + + + + + Implants + +------+--------+ +--------+--------+--------+ | Implanted | Type | Area | Manufacture | Device | Expira | Model | | | | | r | | tion | / | | | | | | Identi | Date | Serial | | | | | | fier | | / Lot | + +------+--------+ +--------+--------+--------+ | Allograft Block Extra Large | | N/A: | NUVASIVE | | 04/22/ | [id number] | | Formagraft Large - | | Spine | | | 2019 | 5 / | | [id number]: Qty: 1 on | | Lumbar | | | | /FG-14 | | 06/25/2013 by Endy Cabrera, | | | | | | 05 | | MD | | | | | | | + +------+--------+ +--------+--------+--------+ | Screw Expedium 6.5x45mm Ti - | | | DEPUY | | | 1797-1 | | [id number]: Qty: 2 on | | | | | | 5-645 | | 06/25/2013 | | | | | | / / | + +------+--------+ +--------+--------+--------+ | Graft Sponge Kit Bone Infuse | | N/A: | MEDTRONIC | | 01/11/ | [id number] | | Medium 56ml - | | Spine | | | 2014 | 0 | | [id number]: Qty: 1 | | Lumbar | | | | /[id number] | | on 06/25/2013 by Deborah, | | | | | | [id number] | | MD Endy | | | | | | / | + +------+--------+ +--------+--------+--------+ | Cage Coroent [id number] Xl | | N/A: | NUVASIVE | | | [id number] | | Wide 10 Degree - | | Spine | | | | 0 / / | | [id number]: Qty: 1 on | | Lumbar | | | | | | 06/25/2013 by Endy Cabrera, | | | | | | | Willis ARANDA | | | | | | | + +------+--------+ +--------+--------+--------+ | Allograft Freeze Dried | | N/A: | LIFENET | | 03/10/ | [id number] | | Demineralized Cancellous Mix | | Spine | HEALTH | | 2016 | T | | Ic Graft Chamber 15cc - | | Lumbar | | | | /[id number] | | [id number]: Qty: | | | | | | 60-301 | | 1 on 06/25/2013 by Deborah, | | | | | | 2 / | | MD Endy | | | | | | | + +------+--------+ +--------+--------+--------+ | Allograft Freeze Dried | | N/A: | LIFENET | | 03/10/ | [id number] | | Demineralized Cancellous Mix | | Spine | HEALTH | | 2017 | T | | Ic Graft Chamber 15cc - | | Lumbar | | | | /[id number] | | [id number]: Qty: | | | | | | 12-302 | | 1 on 06/25/2013 by Deborah, | | | | | | 0 / | | MD Endy | | | | | | | + +------+--------+ +--------+--------+--------+ | Screw Set Expedium Ti - | | N/A: | FREDY AND | | | 1797-0 | | [id number]: Qty: 4 on | | Spine | FREDY | | | 2-000 | | 06/25/2013 by Endy Cabrera, | | Lumbar | | | | / / | | MD | | | | | | | + +------+--------+ +--------+--------+--------+ | Eduar Expedium Pre-Bent | | N/A: | FREDY AND | | | 1797-7 | | 5.5x55mm - [id number]: | | Spine | FREDY | | | 1-055 | | Qty: 1 on 06/25/2013 by | | Lumbar | | | | / / | | Endy Cabrera MD | | | | | | | + +------+--------+ +--------+--------+--------+ | Eduar Expedium Pre-Bent | | N/A: | FREDY AND | | | 1797-7 | | 5.5x75mm - [id number]: | | Spine | FREDY | | | 1-075 | | Qty: 1 on 06/25/2013 by | | Lumbar | | | | / / | | Enyd Cabrera MD | | | | | | | + +------+--------+ +--------+--------+--------+ | Connector Expedium Top Notch | | N/A: | FREDY AND | | | 1797-7 | | 5.5-5.5 Ti - | | Spine | FREDY | | | 1-555 | | [id number]: Qty: 2 on | | Lumbar | | | | / / | | 06/25/2013 by Endy Cabrera, | | | | | | | | MD | | | | | | | + +------+--------+ +--------+--------+--------+ Procedures + +--------+ + + + | Procedure Name | Priori | Date/Time | Associated Diagnosis | Comments | | | ty | | | | + +--------+ + + + | EKG STANDARD 12 LEAD | Routin | 04/15/2018 | 1st degree AV | Results for this | | | e | 10:17 AM | block Sinus | procedure are in the | | | | PST | bradycardia Mixed | results section. | | | | | hyperlipidemia | | | | | | Essential | | | | | | hypertension, benign | | | | | | Bilateral leg | | | | | | edema Type 2 | | | | | | diabetes mellitus | | | | | | with stage 3 chronic | | | | | | kidney disease, | | | | | | without long-term | | | | | | current use of | | | | | | insulin (HCC) | | + +--------+ + + + [...] | | + +--------+ + + + from Last 3 Months Results EKG STANDARD 12 LEAD (04/15/2018 10:17 AM) + + + + + | Component | Value | Ref Range | Performed At | + + + + + | Ventricular Rate | 59 | BPM | [facility] | + + + + + | Atrial Rate | 64 | BPM | [facility] | + + + + + | QRS Duration | 86 | ms | [facility] | + + + + + | Q-T Interval | 428 | ms | [facility] | + + + + + | QTC Calculation | 423 | ms | [facility] | | (Bezet) | | | | + + + + + | Calculated R [place] | 27 | degrees | [facility] | + + + + + | Calculated T [place] | 53 | degrees | [facility] | + + + + + | Diagnosis | Please refer to | | [facility] | | | Providers office visit | | | | | note for Providers | | | | | Interpretation.Confirmed | | | | | by [facility] Read Only, | | | | | [facility] Johnny ([id number]), | | | | | food editor [facility] [place] | | | | | ([id number]) on 04/15/2018 | | | | | 10:20:15 AM | | | + + + + + + + + + + | Performing | Address | City/State/Zipcode | Phone Number | | Organization | | | | + + + + + | [facility] | [address] | [place] [address] | | + + + + + [...] + + + | [facility] | [address] | [place] [address] | [phone] | | LABORATORY | [address]vd[address] | | [...] + + + | [facility] | [address] | [place] [address] | [phone] | | LABORATORY | [address]vd. | | | + + + + + Uric acid (04/04/2018 9:59 AM) + +-------+ [...] + + + | [facility] | [address] | [place] [address] | [phone] | | LABORATORY | [address]vd[address] | | [...] 3.4 | 3.3 - 4.8 g/dL | [facility] | | | | | LABORATORY | + + + + + | GLOBULIN | 3.1 | 1.3 - 4.9 g/dL | [facility] | | | | | LABORATORY | + + + + + | A/G | 1.1 | 1.0 - 2.4 | [facility] | | | | | LABORATORY | [...] 13 | 10 - 45 U/L | [facility] | | | | | LABORATORY | + + + + + | ALT | 16 | 10 - 65 U/L | [facility] | | | | | LABORATORY | + + + + + | EGFR | 36 (L)Comment: GFR <60: | >60 mL/min/1.73_m2 | [facility] | | | CHRONIC KIDNEY DISEASE, | [...] | | | | using the MDRD IDMS | | | | | traceable equation. | | | + + + + + + + | Specimen | + + | Blood | + + + + + + + | Performing | Address | City/State/Zipcode | Phone Number | | Organization | | | | + + + + + | [facility] | [address] | [place] [address] | [phone] | | LABORATORY | [place] | | | + + + + + from Last 3 Months Insurance + +--------+ +------+-------+ + | Payer | Benefi | Subscriber | Type | Phone | Address | | | t Plan | ID | | | | | | / | | | | | | | Group | | | | | + +--------+ +------+-------+ + | MEDICARE | MEDICA | [id number] | | | [address] | | | RE | | | | [place] [address] | | | IP-OP | | | | | + +--------+ +------+-------+ + | [employer] [place] | [employer]UAL | [id number] | | | | | | [place] | | | | | | | [place] | | | | | + +--------+ +------+-------+ + + +--------+ +--------+ + + | Guarantor Name | Accoun | Relation to | Date | Phone | Billing Address | | | t Type | Patient | of | | | | | | | | | | + +--------+ +--------+ + + | OFELIA HERNANDEZ | Person | Self [birth year] Home: | [address] | | | al/Fam | | 1936 | [phone] [place] | | | [place] | | | [phone] | [phone] | + +--------+ +--------+ + +
--- OUTSIDE RECORDS SUMMARY | ~2018-05-17 | XMS | Encounter Summary ---
Demographics + + + | Address | [address] | | | [place] [address] | + + + | Home Phone | | + + + | Preferred Language | Unknown | + + + | Marital Status | | + + + | Pentecostal Affiliation | 1077 | + + + | Race | Unknown | + + + | Ethnic Group | Unknown | + + + Author + + + | Author | [facility] | + + + | Organization | [facility] | + + + | Address | Unknown | + + + | Phone | Unavailable | + + + Support + + + + + | Name | Relationship | Address | Phone | + + + + + | Guevara Ceron | ECON | [address] | | | D | | [place] | | | | | [address] | | + + + + + Care Team Providers + +------+ + | Care Market Development Manager Name | Role | Phone | + +------+ + | Shantanu Bermudez MD | PCP | | + +------+ + Reason for Visit + + + | Reason | Comments | + + + | Medication Refill | | + + + Encounter Details +--------+--------+ + + + | Date | Type | Department | Care Team | Description | +--------+--------+ + + + | 05/02/ | Refill | [facility] | Lauri, | Chronic gout without | | 2018 | | Rheumatology [address] | tophus, unspecified | | | | [address] | [address] | cause, unspecified | | | | [place] [address] | [place] [address] | site | | | | [phone] | [phone] | | | | | | | | +--------+--------+ + + + Social History + +-------+ [...] + + + as of this encounter Plan of Treatment +--------+---------+ + + + | Date | Type | Specialty | Care Team | Description | +--------+---------+ + + + | 07/26/ | Office | Nephrology | Pippa Rojasew, | | | 2018 | Visit | | [facility] | | | | | | [address] | | | | | | [place] [address] | | | | | | [phone] | | | | | | | | +--------+---------+ + + + | 10/03/ | Office | Rheumatology | Lauri, | | | 2018 | Visit | | [address] [address] | | | | | | [facility] | | | | | | [place] [address] | | | | | | [phone] | | | | | | | | +--------+---------+ + + + | 10/17/ | Office | Cardiology | Kathrin Christiansen | | | 2019 | Visit | | [address] [address] | | | | | | [address] | | | | | | [place] [address] | | | | | | [phone] | | | | | | | | +--------+---------+ + + + as of this encounter Visit Diagnoses + + | Diagnosis | + + | Chronic gout without tophus, unspecified cause, unspecified site | + +"
--- OUTSIDE RECORDS SUMMARY | ~2018-05-17 | XMS | Encounter Summary ---
Demographics + + + | Address | [address] | | | [place] [address] | + + + | Home Phone | | + + + | Preferred Language | Unknown | + + + | Marital Status | | + + + | Jew Affiliation | 1077 | + + + | Race | Unknown | + + + | Ethnic Group | Unknown | + + + Author + + + | Author | [facility] | + + + | Organization | [facility] [employer] [facility] | + + + | Address | Unknown | + + + | Phone | Unavailable | + + + Support + + + + + | Name | Relationship | Address | Phone | + + + + + | Guevara Ceron | ECON | [address] | | | D | | [place] | | | | | [address] | | + + + + + Care Team Providers + +------+ + | Care Metal Spinner Name | Role | Phone | + [...] + + | 02// | Office | [facility] | [place], | High risk medication | | 2019 | Visit | Rheumatology [address] | Brittanie Lacey, FARMWORKER ANIMAL [address] | use (Primary Dx); | | | | [address] | [facility] [address] | Chronic gout without | | | | [place] [address] | [place] [address] | tophus, unspecified | | | | [phone] | [phone] | cause, unspecified | | | | [...] you can send us a message/request using SPark! or call our o guille at [phone]. To reach Marycruz MORALES type extension [phone]. If you are unable to reach a [...] can also look at your results on [facility]. If you are experiencing an emergency, please call 911 in this encounter Progress Notes Brittanie Carreon, FARMWORKER ANIMAL - 04/04/2018 9:40 AM PSTFormatting of this [...] extremitie s. Joint Exam Labs reviewed in [facility] --01/11/2018 Reviewed chart notes, labs and [...] kidney disease) stage 3, GFR 30-59 ml/min ([facility]) CKD-St3, followed by and Josue JUARES Risks and benefits of a treatment plan were explained to patient. Patient will follow up with their primary care physician in regards to non-rheumatological symptoms listed under review of systems. Patient was advised to contact our office if there are any change in their symptoms. This document has been prepared with Sticher recognition system. The possibility of "s ound alike" biomedical instrument technician errors, and additions, or deletions may occur. [...] [address] | | | | | | [place] [address] | | | | | | [phone] | | | | | | | | +--------+---------+ + + + | 10/03/ | Office | Rheumatology | Moralesmelanymannydominic, | | | 2018 | Visit | | [address] | | | | | | [facility] | | | | | | [place] [address] | | | | | | [phone] | | | | | | | | +--------+---------+ + + + | 10/17/ | Office | Cardiology | KuldipKathrin | | | 2018 | Visit | | [address] | | | | | | [address] | | | | | | [place] [address] | | | | | | [phone] | | | | | | | [...] + + + | [facility] | [address] | [place] [address] | [phone] | | LABORATORY | [address]vd. | | [...] | + + + + + | [facility] | [address] | [place] [address] | [phone] | | LABORATORY | Blvd. | | [...] 16 | 10 - 65 U/L | [facility] | | | | | LABORATORY | + + + + + | EGFR | 36 (L)Comment: GFR <60: | >60 mL/min/1.73_m2 | [facility] | | | CHRONIC KIDNEY DISEASE, | [...] | | | | using the MDRD IDCT | | | | | traceable equation. | | | + + + + + + + | Specimen | + + | Blood | + + + + + + + | Performing | Address | City/State/Zipcode | Phone Number | | Organization | | | | + + + + + | [facility] | [address] | [place] [address] | [phone] | | LABORATORY | [place] | | [...] + + + | [facility] | [address] | [place] [address] | [phone] | | LABORATORY | [address] | | [...] kidney disease) stage 3, GFR 30-59 ml/min ([facility]) | + + | Chronic kidney disease, Stage III (moderate) | + +
--- OUTSIDE RECORDS SUMMARY | ~2018-05-17 | XMS | Encounter Summary ---
Demographics + + + | Address | [address] | | | [place] [address] | + + + | Home Phone | | + + + | Preferred Language | Unknown | + + + | Marital Status | | + + + | Voodoo Affiliation | 1077 | + + + | Race | Unknown | + + + | Ethnic Group | Unknown | + + + Author + + + | Author | [facility] | + + + | Organization | [facility] | + + + | Address | Unknown | + + + | Phone | Unavailable | + + + Support + + + + + | Name | Relationship | Address | Phone | + + + + + | Guevara Ceron | ECON | [address] | | | D | | [place] | | | | | [address] | | + + + + + Care Team Providers + +------+ + | Care Interventional Radiology Tech Name | Role | Phone | + +------+ + | Meño Smith MD | PCP | | + +------+ + Reason for Visit + + + | Reason | Comments | + + + | Follow-up | 6 month | + + + Encounter Details +--------+---------+ + + + | Date | Type | Department | Care Team | Description | +--------+---------+ + + + | 04/15/ | Office | LEILA Carrera | Kathrin Christiansen | 1st degree AV block | | 2019 | Visit | Cardiology [place] | [address] | (Primary Dx); Sinus | | | | [address] | [address] | bradycardia; Mixed | | | | [address] | [place] [address] | hyperlipidemia; | | | | [place] [address] | [phone] | Essential | | | | [phone] | | hypertension, | | | | [...] | | | | insulin (HCC) | +--------+---------+ + + + Social [...] + + + + | Temperature | - | - | + + + + | Respiratory [...] in this encounter Instructions Patient Instructions - Kathrin Christiansen ARNP - 04/15/2018 10:00 AM PSTOk if just takes lovastatin, can work on Triglycerides with Dr. Cortes I made no changes to medications today , and will see you back in 6 months but sooner if ne eded in this encounter Progress Notes Kathrin Christiansen ARNP - 04/15/2018 10:00 AM PSTFormatting of this note may be differen t from the original. Date of visit: 04/15/2018 Primary Care Physician: MEÑO SMITH CHIEF COMPLAINT: 6 month f/u HISTORY OF PRESENT ILLNESS: Ms. Ceron is a 82 year old woman who is here today for 6 month follow up .She is accompanied today by her Son Rony , who contributed to history, which is helpful due to her poor memory. 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 Difficile which finally resolved after several tr eatments in [place], Her current and previous testing and procedures are detailed below. I saw her last in September of 2017, when I had been adjusting her medications for slow heart rate and junctional rhythm, and had previously stopped diltiazem, and decreased metoprolol and last EKG in September showed sinus rhythm at 60 bpm, and marked sinus arrhythmia with 1st degree AV block , with good blood pressure of 130/56, and she denied any dizziness, or sync ope. Today she reports she has felt well, and denies any chest pain, palpitations, dizziness, o r syncope. She also denies any signs or symptoms of stroke or transient ischemic attack. Her son reports he has problems with lower extremity edema have resolved in the last few weeks, and he reports since their meals are being supervised by his , that they are now much more compliant with low-sodium diabetic compliant meals. Her uplgiunl-yk-fcw also orga annemarie and administers her medications to make sure she takes everything as ordered He is also now seeing Dr. vijay Charles for her diabetes She and her now receive home care to help with bathing and dressing 3 times per week. She is still not very active, though her son and daughter in law trying to her insurer to be more mobile. She last saw nephrology MOR Rojas on 01/16/2018 and his notes document he contin ued losartan 25 mg daily and did not change any other vasoactive medications She also saw Rheumatology on 2018 for gout and note reviewed. She continues to drink 2 glasses of wine with dinner but denies drinking any more than t his. She was seen in the emergency room at [facility] on March 01, 2018 after a fall and jacobs stained a skin care to her left arm but alcohol was noted to be 170 They brought in all her medication bottles to clinic visit today, and reviewed them shellyfredo danikay with them. Since I stopped her last, her fenofibrate has been stopped, and she was star loulou on VASCEPA for high triglycerides. REVIEW OF SYSTEMS: Negative except for pertinent items noted in HPI. Constitutional: report mild ongoing fatigue, but denies any unexplained weight lo ss. Appetite is good. Weight is stable. Denies night sweats fevers or chills HENT: Denies nosebleeds. Reports mild hearing loss. Denies dysphagia Eyes:reports macular degeneration, glaucoma Denies visual disturbance or double vision. Respiratory/Sleep:: Mild ARROYO. Denies cough Denies hemoptysis or excessive sputum producti on. Denies snoring, orthopnea, PND. Cardiovascular: Hx carotid artery disease Denies chest pain, palpitations and leg swellin g. Denies history of rheumatic fever. Denies claudication . Gastrointestinal:Hx diverticulosis . Hx C. Difficile Denies history of gastroesophageal re flux disease . Denies nausea, vomiting, abdominal pain and blood in stool. Genitourinary: Denies hematuria. History hysterectomy Hx chronic kidney disease(Dr. Cas roque/Stoney Rojas ) Musculoskeletal: Hx Spinal stenosis, Hx multiple hip replacements, back surgery: osteoart hritis Multiple joints, ambulates with 4 wheeled walker Denies myalgias, Skin: Denies color change. Denies rash or lesions Neurological: Hx carpel tunnel release. Denies history of stroke/Transient ischemic attack. Denies history of seizures. Denies dizziness, syncope and numbness. Denies focal motor or s ensory deficits Hematological/Oncology history of multiple blood transfusions , history of anemia Does not bruise/bleed easily. Denies history of cancer Endocrine: Denies diabetes or thyroid disease. Denies excessive thirst or hunger. Psychiatric/Behavioral: History of bipolar disorder . Vaccines: Current on flu vaccine 11/2016. Current on pneumonia vaccine. Habits/Social : Denies history of smoking. EtOH use: drinks 2 glasses of wine daily . Dri nks 1 serving of caffeine daily . Denies recreational or illicit drug use. Exercises wit h occasional walking with walker and tolerates. 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 [facility] Out[facility] Medications Prior to Visit Medication Sig Dispense Refill acetaminophen (TYLENOL) 500 MG tablet Take 1,000 mg by mouth every evening. allopurinol (ZYLOPRIM) 300 MG tablet Take 1 tablet by mouth every other day. 45 tablet 1 CALCIUM CITRATE-VITAMIN D3 PO Take 1 tablet by mouth 2 (two) times daily. citalopram (CELEXA) 20 MG tablet Take 20 mg by mouth every morning. colchicine 0.6 MG tablet Take 0.6 mg by mouth as needed. Indications: Gout cycloSPORINE (RESTASIS) 0.05 % ophthalmic emulsion Place 1 drop into both eyes as neede d. furosemide (LASIX) 40 MG tablet Take 40 mg by mouth every other day. gabapentin (NEURONTIN) 300 MG capsule Take 300 mg by mouth 2 (two) times daily. Lactobacillus-Inulin ([facility] Siving [facility] [place] PO) Take 1 tablet by mouth daily. losartan (COZAAR) 25 MG tablet Take one tablet by mouth every day 90 tablet 3 lovastatin (MEVACOR) 40 MG tablet Take 40 mg by mouth nightly. metoprolol (TOPROL-XL) 25 MG 24 hr tablet Take 0.5 tablets by mouth daily. 45 tablet 3 nitroGLYCERIN (NITROSTAT) 0.[address] 0.4 mg under the tongue every 5 (five) minutes as needed. oxybutynin (DITROPAN) 5 MG tablet Take 5 mg by mouth daily. potassium chloride SA (K-DUR,KLOR-CON) 20 MEQ tablet Take 10 mEq by mouth 2 (two) times daily. QUEtiapine (SEROQUEL) 25 MG tablet Take 1 tablet by mouth daily. TRADJENTA 5 MG tablet VASCEPA 1 g CAPS Take 1 g by mouth 2 (two) times daily. DILT-XR 180 MG 24 hr capsule fenofibrate 48 MG tablet Take 1 tablet by mouth daily. (Patient not taking: Reported on 04/15/2018) 90 tablet 3 rabeprazole (ACIPHEX) 20 MG tablet Take 20 mg by mouth as needed. traMADol (ULTRAM) 50 MG tablet Take 50 mg by mouth daily as needed for Pain (rarely use s). Seldom needed No facility-administered medications prior to visit. PHYSICAL EXAM: Wt Readings from Last 3 Encounters: 04/15/18 87.2 kg (192 lb 4.8 oz) 04/04/18 87.1 kg (192 lb) 01/16/18 93.4 kg (205 lb 12.8 oz) Temp Readings from Last 3 Encounters: 04/04/18 97.4 F (36.3 C) 10/02/17 97.5 F (36.4 C) 08/08/17 97.8 F (36.6 C) (Temporal) BP Readings from Last 3 Encounters: 04/15/18 118/56 04/04/18 132/66 01/16/18 134/54 Pulse Readings from Last 3 Encounters: 04/15/18 59 04/04/18 56 01/16/18 72 GENERAL: Well developed, well nourished, in no distress. Appears approximately stated age . HEENT: Normocephalic, atraumatic. EYES: PERRL, EOM normal. MOUTH: Oral mucosae moist, dentition adequate no lesions noted NECK: No JVD, lymphadenopathy, thyromegaly, bruits. Carotid pulses are 2+ bilaterally LUNGS/CHEST: Clear bilaterally, with no rales, rhonchi or wheezing noted, respirations unl abored HEART: Nondisplaced PMI, regular rate and rhythm, S1, S2 normal. No murmurs, rubs or gall ops noted. ABDOMEN: Soft, nontender, no organomegaly, masses or bruits. Bowel sounds are normal in a ll 4 quadrants. The abdominal aortic pulsation is not palpable. EXTREMITIES: Trace LE edema bilaterally,hemosiderotic changes on the legs, multiple areas of bruising and scabs on lower extremities. . Radial pulses 2+ bilaterally. Femoral pulses are 2+ bilaterally without bruits. DP and PT pulses are 2+ bilaterally. No clubbing. SKIN: Warm and dry, capillary refill is normal, Dry irritated patches of skin to right c heek,and scaling reddened skin to lower legs NEUROLOGIC: Awake, alert and oriented x 3. No focal motor or sensory deficits. PSYCHIATRIC: Appropriate, affect appears normal DATA: Blood tests: Lab Results Component Value Date WBC 6.98 04/04/2018 RBC 3.94 04/04/2018 HGB 12.6 04/04/2018 HCT 38.2 04/04/2018 PLT 149 (L) 04/04/2018 Lab Results Component Value Date NA 142 04/04/2018 K 4.4 04/04/2018 CL 106 04/04/2018 CO2 29 04/04/2018 ANIONGAP 11 04/04/2018 GLUF 109 (H) 04/04/2018 BUN 31 (H) 04/04/2018 CREATININE 1.4 (H) 04/04/2018 BCR 22 04/04/2018 CA 9.8 04/04/2018 CA 9.8 04/05/2016 EGFR 36 (L) 04/04/2018 Lab Results Component Value Date GLUF 109 (H) 04/04/2018 HGBA1C 5.6 11/30/2013 Lab Results Component Value Date BNP 67 07/03/2016 CKTOTAL 472 (H) 06/27/2013 TSH 3.60 06/13/2016 CRP 10.1 (A) 12/24/2015 No results found for: METF, NMETFX, TFNMFX, IDFOSFK78POA, YVAOOY34AFR, TOTEPI Echo: Last Echo : 2017: ([facility]). EF 60-65 percent. LV normal in size and wall thic kness. Mild, grade 1 diastolic dysfunction, normal for age unable to assess wall motion. R V normal in size and function. Normal size atrium. Aortic valve trileaflet, mildly thicken ed and calcified. No aortic regurgitation or stenosis and 2-D images. aortic valve area by continuity equation is 1.6cm, ( suspected to be falsely low.) maximum velocity across the aortic valve is 1.81m/s Aortic Valve: Peak/mean gradient across the valve 13.16mmHg/6.9 0mmHg.LVOT Area: 2.69 cm2 LVOT Diam:1.85 cm. no mitral regurgitation or mitral valve prolaps e or mitral stenosis. Mild mitral calcification of the anterior and posterior leaflet. Mil d TR. No pulmonary hypertension. RVSP 26.59 mmHg. IVC normal, normal CVP. Aortic root, a scending aorta, and aortic arch are normal Echo: 2012: ([facility]). LV normal in size, wall thickness. EF 65 percent. Defi nity used. RV normal in size and function. Biatrial size normal. Sclerosis of the aortic valve leaflets, no stenosis regurgitation. Mild posterior mitral annular calcification and mild mitral regurgitation. Tricuspid valve normal, mild TR. Tricuspid regurgitant a size 3 5 mmHg, RAP estimated at 5 mmHg. RV and pulmonary artery pressures are mildly elevated at 4 0 mmHg NON CARDIAC IMAGING?PROCEDURES Chest x-ray: 06/13/2016: ([facility]). Mildly enlarged cardiac silhouette, normal pulmona ry vasculature. No effusions. Aorta mildly calcified. VASCULAR IMAGING/PROCEDURES: Last Carotid ultrasound: 02/19/2017. Borderline mild stenosis to left proximal internal alonso tid artery. No significant stenosis within the right internal carotid artery. Bilateral ve rtebral arteries demonstrated antegrade flow Carotid ultrasound: 07/12: ([facility]): Left internal carotid artery 50-69 percent with normal carotid ratio, estimated to be <50 percent stenosis. Right internal carotid ar della 16-49 percent. Normal antegrade flow bilaterally to vertebral artery Last Stress Test, 11/03/2015 ([facility]): Lexiscan, ECG (-) for ischemia, no arrhythmias, images benign, LVEF 55%. EKG: EK09/22: Marked sinus bradycardia with first-degree AV block. Low voltage QRS to i nferior leads with poor R-wave progression Rate 42 bpm, IA 252 ms, QRS 90 ms, QTC 395 ms EK2016: Junctional rhythm, 50 bpm. QRS 80 ms, QTC 412 ms, low voltage QRS to inf erior leads EK09/20/2017: SR with marked sinus arrhythmia, 1st degree AVB. Rate 60 bpm, IA 272 ms, QR S 88 ms, QTC 422, non specific ST abn, tracing personally reviewed by me. EK10/08/2017: Sinus rhythm with first-degree AV block Rate 74 bpm, IA 260 ms, QRS 86 ms, QTC 439 ms, stable low voltage QRS to inferior leads, tracing personally reviewed by me. EK04/15/2018: Sinus bradycardia with first-degree AV block. Rate 59 bpm, IA 280 ms, QRS 8 6 ms, QTC 423 ms, stable low voltage QRS to inferior leads ,tracing personally reviewed by merrick strickland, poor P wave morphology LABS: Labs: 2016: Sodium 139, potassium 4.3, chloride 97, glucose 147, BUN 18, creatinine 1.42, GFR 35, albumin 3.6. Magnesium 1.7. CBC: WBC 7.5, hemoglobin 12.8, hematocrit 38.4, platelets 174. PTH, intact: Calcium 9.5, PTH 30.12 Labs: 03/05/2017: Lipids: Cholesterol 143, triglycerides 230, HDL 63, LDL 34, VLDL 46, ratio 2.3, non-HDL cholesterol 80. CMP: Sodium 143, potassium 4.7, chloride 104, glucose 138, BU N 31, creatinine 1.9, GFR 39, AST 25, ALT 30, alk phos 55, total bilirubin 0.5, albumin 4. Thyroid: TSH 3.76 Labs: 09/06/2017: : Lipids: ( Mevacor 40 mg) Cholesterol 119, triglycerides 350, HDL 55,, V LDL 70, ratio 2.2, non-HDL cholesterol 64. CMP: Sodium 139 potassium 4.4, chloride 100, glu cose 194, BUN 22, creatinine 1.42, GFR 35, AST 26, ALT 26, alk phos 47, total bilirubin 0.4, albumin 4.1 Hgb A1C 6.3 (134) Labs: 03/01/2018: ([facility]): CBC: WBC 8.6 RBC 3.96, hemoglobin 12.7, hematocrit 38.7, platele ts 149. CMP: Glucose 107, BUN 38, creatinine 1.7, GFR 29, sodium 137, potassium 3.9, chlori de 102, albumin 3.8 , total bilirubin 0.3, AST 16, ALT 12, alk phos 34, alcohol 170. ASSESSMENT & PLAN: She is here today with her son today for 6 month follow up. She reports feeling well, and heart rate and blood pressure well controlled on current medi cations,but EKG still shows sinus bradycardia with stable first-degree AV block, though P wa ve less defined today. She is asymptomatic for any lightheadedness or dizziness, and blood pressure well control led. Her labs performed in December detailed above show a normal CBC, and CMP normal except fo r stable low GFR, with normal liver enzymes, but noted she had elevated alcohol level when s he was in the emergency room of 170. Since I saw her last shoulder fenofibrate has been stopped, and she was started on VASCEP A for high triglycerides by her communications scientist Dr. Cortes. Though her heart rate is on the slower side, overall she seems stable, and I made no ch anges to her cardiac medications today, and she should continue metoprolol succinate 12. 5 m g qhs, losartan 25 mg daily, lovastatin 40 mg qhs , furosemide 40 mg every other day,and potassium 10 mEq bid. I did not order any labs, as she and her son reports she is getting follow-up on her lipi ds by her communications scientist, Dr. Cortes, regular labs performed by nephrology. She seems to be improved with having her family and home health provided her more heart h ealthy diabetic friendly meals, and also having her medications organized by her daughter-in -law. I will see her back in 6 months, but sooner if needed and will order an Echo to be done a fter I see her back. 1. 1st degree AV block 2. Sinus bradycardia 3. Mixed hyperlipidemia 4. Essential hypertension, benign 5. Bilateral leg edema 6. Type 2 diabetes mellitus with stage 3 chronic kidney disease, without long-term current use of insulin ([facility]) Orders Placed This Encounter Procedures Electrocardiogram, 12-lead The following portions of the patient's history were personally reviewed by me and updated as appropriate: EKG tracings, previous specialty provider and PCP notes,any Hospital admission and discharg e summaries, any ER records , current and previous cardiac testing and procedure reports and data, medication bottles brought to visit today personally reviewed by me. Allergies, current medications.labs Family history, past medical history, past social history, past surgical history. Problem list. [facility] Cardiology 04/15/2018in this encounter Plan of Treatment +--------+---------+ + + + | Date | Type | Specialty | Care Team | Description | +--------+---------+ + + + | 07/26/ | Office | Nephrology | Stoney Rojas | | | 2018 | Visit | | M[facility] [address] | | | | | | [address] | | | | | | [place] [address] | | | | | | [phone] | | | | | | | | +--------+---------+ + + + | 10/03/ | Office | Rheumatology | Lauri, | | | 2018 | Visit | | [address] | | | | | | [place] | | | | | | [place] [address] | | | | | | [phone] | | | | | | | | +--------+---------+ + + + | 10/17/ | Office | Cardiology | Kathrin Christiansen | | | 2019 | Visit | | [address] | | | | | | [address] | | | | | | [place] [address] | | | | | | [phone] | | | | | | | | +--------+---------+ + + + as of this encounter Procedures [...] + + + in this encounter Results EKG STANDARD 12 LEAD (04/15/2018 10:17 [...] + + + + | Calculated R [place] | 27 | degrees | [facility] EKG | + + + + + | Calculated T [place] | 53 | degrees | [facility] EKG | + + + + + | Diagnosis | Please refer to | | [facility] EKG | | | Providers office visit | | | | | note for Providers | | | | | Interpretation.Confirmed | | | | | by [facility] [employer] Read Only, | | | | | [facility] Johnny ([id number]), | | | | | newspaper editor managing Home [place] | | | | | ([id number]) on 04/15/2018 | | | | | 10:20:15 AM | | | + + + + + + + + + + | Performing | Address | City/State/Zipcode | Phone Number | | Organization | | | | + + + + + | [facility] | [address] | [place] [address] | | + + + + + in this encounter Visit Diagnoses + + | Diagnosis | + + | 1st degree AV block - Primary | + + | First degree atrioventricular block | + + | Sinus bradycardia | + + | Other specified cardiac dysrhythmias | + + | Mixed hyperlipidemia | + + | Essential hypertension, benign | + + | Bilateral leg edema | + + | Edema | + + | Type 2 diabetes mellitus with stage 3 chronic kidney disease, without long-term | | current use of insulin (HCC) | + +
--- OUTSIDE RECORDS SUMMARY | ~2018-05-17 | XMS | Clinical Summary ---
Demographics + + + | Address | [address] | | | [place] [address] | + + + | Home Phone | | + + + | Preferred Language | Unknown | + + + | Marital Status | | + + + | Pentecostalism Affiliation | PRO | + + + [...] [place], [place] | | | | | [address] | | + + + + + Care Team Providers + +------+ + | Care Aquaculturist Name | Role | Phone | + +------+ + | Shantanu Bermudez MD | PP | | + +------+ + Source Comments BREANASANDRA is fully live on both [facility] Ambulatory and [facility] InPatient.[facility] Allergies + + + + + [...] | re | [address] | [place] [address] | | | B | | | | | + +--------+ +--------+ + + | [employer] [place] | MUTUAL | [phone] | Indemn | [phone] | [employer] [place] | | MEDICARE SUPPL | OF | | ity | [address] | [address] | | | [place] | | | | [phone] | | | MEDICA | | | [...] | patsy | | | [phone] | [phone] | + +--------+ +--------+ + +
--- OUTSIDE RECORDS SUMMARY | ~2018-05-17 | XMS | Encounter Summary ---
Demographics + + + | Address | [address] | | | [place] [address] | + + + | Home Phone | | + + + | Preferred Language | Unknown | + + + | Marital Status | | + + + | Hinduism Affiliation | 1077 | + + + | Race | Unknown | + + + | Ethnic Group | Unknown | + + + Author + + + | Author | [facility] | + + + | Organization | [facility] [employer] [facility] | + + + | Address | Unknown | + + + | Phone | Unavailable | + + + Support + + + + + | Name | Relationship | Address | Phone | + + + + + | Guevara Ceron | ECON | [address] | | | D | | [place] | | | | | [address] | | + + + + + Care Team Providers + +------+ + | Care Canvas Goods Supervisor Name | Role | Phone | + +------+ + | Shantanu Bermudez MD | PCP | | + +------+ + Reason for Visit + + + | Reason | Comments | + + + | Labs Only | [facility] 03/01/18 | + + + Encounter Details +--------+ + + + + | Date | Type | Department | Care Team | Description | +--------+ + + + + | 04/03/ | Documentati | LEILA Luebbering | Marti Queen MA | Labs Only ([facility] | | 2019 | on Only | [facility] | | Labs 03/01/18) | | | | [address] [facility] [address] | | | | | | [address] | | | | | | [place] [address] | | | | | | [phone] | | | +--------+ + + + + Social History + +-------+ [...] Nephrology | Stoney Rojas, | | | 2018 | Visit | | [address] | | | | | | [address] | | | | | | [place] [address] | | | | | | [phone] | | | | | | | | +--------+---------+ + + + | 10/03/ | Office | Rheumatology | Lauri, | | | 2018 | Visit | | [address] | | | | | | [facility] | | | | | | [place] [address] | | | | | | [phone] | | | | | | | | +--------+---------+ + + + | 10/17/ | Office | Cardiology | Kathrin Christiansen | | | 2018 | Visit | | [address] | | | | | | [address] | | | | | | [place] [address] | | | | | | [phone] | | | | | | | | +--------+---------+ + + + as of this encounter Visit Diagnoses Not on filein this encounter"
--- OUTSIDE RECORDS SUMMARY | ~2018-05-17 | XMS | Clinical Summary ---
Demographics + + + | Address | [address] | | | [place] [address] | + + + | Home Phone | | + + + | Preferred Language | Unknown | + + + | Marital Status | | + + + | Amish Affiliation | 1077 | + + + | Race | Unknown | + + + | Ethnic Group | Unknown | + + + Author + + + | Author | [facility] [employer] [facility] | + + + | Organization | [facility] [employer] [facility] | + + + | Address | Unknown | + + + | Phone | Unavailable | + + + Support + + + + + | Name | Relationship | Address | Phone | + + + + + | Ofelia Hernandez | ECON | [address] | | | D | | [place] | | | | | [address] | | + + + + + Care Team Providers + +------+ + | Care Insurance Loss Control Surveyor Name | Role | Phone | + [...] | | | | e | | ([facility] | | | | | | [...] disease) stage 3, GFR 30-59 ml/min ([facility]) | 12/02/2013 | + + + [...] | DM2 (diabetes mellitus, type 2) ([facility]) | 06/24/2013 | + + + [...] | | | | | insulin ([facility]) | +--------+ + + + + [...] [address] | | | | | | [place] [address] | | | | | | [phone] | | | | | | | | +--------+---------+ + + + | 10/03/ | Office | | Lauri, | | | 2018 | Visit | | [address] | | | | | | [facility] | | | | | | [place] [address] | | | | | | [phone] | | | | | | | | +--------+---------+ + + + | 10/17/ | Office | | Kathrin Christiansen | | | 2019 | Visit | | [address] | | | | | | [address] | | | | | | [place] [address] | | | | | | [phone] | | | | | | | [...] N/A: | NUVASIVE | | 04/22/ | [id number] | | Formagraft Large - | | Spine | | | 2019 | 5 / | | [id number]: Qty: 1 on | | Lumbar | | | | /[id number] | | 06/25/2013 by Endy Cabrera, | | | | | | 05 | | MD | | | | | | | + +------+--------+ +--------+--------+--------+ | Screw Expedium 6.5x45mm Ti - | | | DEPUY | | | 1797-1 | | [id number]: Qty: 2 on | | | | | | 5-645 | | 06/25/2013 | | | | | | / / | + +------+--------+ +--------+--------+--------+ | Graft Sponge Kit Bone Infuse | | N/A: | MEDTRONIC | | 01/11/ | [id number] | | Medium 56ml - | | Spine | | | 2014 | 0 | | [id number]: Qty: 1 | | Lumbar | | | | /[id number] | | on 06/25/2013 by Deborah, | | | | | | 05AAL | | MD Endy | | | | | | / | + +------+--------+ +--------+--------+--------+ | Cage Coroent [id number] Xl | | N/A: | NUVASIVE | | | [id number] | | Wide 10 Degree - | | Spine | | | | 0 / / | | [id number]: Qty: 1 on | | Lumbar | | | | | | 06/25/2013 by Endy Cabrera, | | | | | | | Willis ARANDA | | | | | | | + +------+--------+ +--------+--------+--------+ | Allograft Freeze Dried | | N/A: | LIFENET | | 03/10/ | [id number] | | Demineralized Cancellous Mix | | Spine | HEALTH | | 2016 | T | | Ic Graft Chamber 15cc - | | Lumbar | | | | /[id number] | | [id number]: Qty: | | | | | | 60-301 | | 1 on 06/25/2013 by Deborah, | | | | | | 2 / | | MD Endy | | | | | | | + +------+--------+ +--------+--------+--------+ | Allograft Freeze Dried | | N/A: | LIFENET | | 03/10/ | [id number] | | Demineralized Cancellous Mix | | Spine | HEALTH | | 2017 | T | | Ic Graft Chamber 15cc - | | Lumbar | | | | /[id number] | | [id number]: Qty: | | | | | | 12-302 | | 1 on 06/25/2013 by Deborah, | | | | | | 0 / | | MD Endy | | | | | | | + +------+--------+ +--------+--------+--------+ | Screw Set Expedium Ti - | | N/A: | FREDY AND | | | 1797-0 | | [id number]: Qty: 4 on | | Spine | FREDY | | | 2-000 | | 06/25/2013 by Endy Cabrera, | | Lumbar | | | | / / | | MD | | | | | | | + +------+--------+ +--------+--------+--------+ | Eduar Expedium Pre-Bent | | N/A: | FREDY AND | | | 1797-7 | | 5.5x55mm - [id number]: | | Spine | FREDY | | | 1-055 | | Qty: 1 on 06/25/2013 by | | Lumbar | | | | / / | | Endy Cabrera MD | | | | | | | + +------+--------+ +--------+--------+--------+ | Eduar Expedium Pre-Bent | | N/A: | FREDY AND | | | 1797-7 | | 5.5x75mm - [id number]: | | Spine | FREDY | | [...] FREDY | | | 1-555 | | [id number]: Qty: 2 on | | Lumbar | [...] + + + + | Calculated R [place] | 27 | degrees | [facility] | + + + + + | Calculated T [place] | 53 | degrees | [facility] | + + + + + | Diagnosis | Please refer to | | [facility] | | | Providers office visit | | | | | note for Providers | | | | | Interpretation.Confirmed | | | | | by [facility] [place] Read Only, | | | | | ICA Johnny ([id number]), | | | | | image editor Home Rogers | | | | | ([phone]) on 04/15/2018 | | | | | 10:20:15 AM | | | + + + + + + + + + + | Performing | Address | City/State/Zipcode | Phone Number | | Organization | | | | + + + + + | [facility] | [address] | [place] [address] | | + + + + + [...] + + + | [facility] | [address] | [place] [address] | [phone] | | LABORATORY | Blvd. | | [...] + + + | [facility] | [address] | [place] [address] | [phone] | | LABORATORY | Blvd. | | [...] + + + | [facility] | [address] | [place] [address] | [phone] | | LABORATORY | Blvd. | | [...] 3.4 | 3.3 - 4.8 g/dL | [facility] | | | | | LABORATORY | + + + + + | GLOBULIN | 3.1 | 1.3 - 4.9 g/dL | [facility] | | | | | LABORATORY | + + + + + | A/G | 1.1 | 1.0 - 2.4 | [facility] | | | | | LABORATORY | [...] 13 | 10 - 45 U/L | [facility] | | | | | LABORATORY | + + + + + | ALT | 16 | 10 - 65 U/L | [facility] | | | | | LABORATORY | + + + + + | EGFR | 36 (L)Comment: GFR <60: | >60 mL/min/1.73_m2 | [facility] | | | CHRONIC KIDNEY DISEASE, | [...] + + + | [facility] | [address] | [place] [address] | [phone] | | LABORATORY | [place]. | | [...] +------+-------+ + | MEDICARE | MEDICA | [id number] | | | [address] | | | RE | | | | [place] [address] | | | IP-OP | | | | | + +--------+ +------+-------+ + | [employer] [place] | MUTUAL | [id number] | | | | | | [place] | | | | | | | [place] | | | | | + +--------+ [...] Self | [birth year] Home: | [address] | | | al/Fam | | 1936 | [phone] [place] | | | [place] | | | [phone] | [phone] | + +--------+ +--------+ + +
--- OUTSIDE RECORDS SUMMARY | ~2018-05-17 | XMS | Encounter Summary ---
Demographics + + + | Address | [address] | | | [place] [address] | + + + | Home Phone | | + + + | Preferred Language | Unknown | + + + | Marital Status | | + + + | Latter Day Affiliation | 1077 | + + + | Race | Unknown | + + + | Ethnic Group | Unknown | + + + Author + + + | Author | [facility] | + + + | Organization | [facility] [employer] [facility] | + + + | Address | Unknown | + + + | Phone | Unavailable | + + + Support + + + + + | Name | Relationship | Address | Phone | + + + + + | Guevara Ceron | ECON | [address] | | | D | | [place] | | | | | [address] | | + + + + + Care Team Providers + +------+ + | Care Routing Machine Operator Name | Role | Phone [...] + | 04/03/ | Documentati | LEILA Montezuma | Marti Queen MA | [facility] ([facility] | | 2019 | on Only | [facility] | | Labs 03/01/18) | | | | [address] | | | | | | [address] | | | | | | [place] [address] | | | | | | [phone] | | | +--------+ + + + [...] [address] | | | | | | [place] [address] | | | | | | [phone] | | | | | | | | +--------+---------+ + + + | 10/03/ | Office | Rheumatology | Lauri, | | | 2018 | Visit | | [address] | | | | | | [facility] | | | | | | [place] [address] | | | | | | [phone] | | | | | | | | +--------+---------+ + + + | 10/17/ | Office | Cardiology | Kathrin Christiansen | | | 2018 | Visit | | [address] | | | | | | [address] | | | | | | [place] [address] | | | | | | [phone] | | | | | | | | +--------+---------+ + + + as of this encounter Visit Diagnoses Not on filein this encounter"
--- OUTSIDE RECORDS SUMMARY | ~2018-05-17 | XMS | Encounter Summary ---
Demographics + + + | Address | [address] | | | [place] [address] | + + + | Home Phone | | + + + | Preferred Language | Unknown | + + + | Marital Status | | + + + | Mu-Ism Affiliation | 1077 | + + + | Race | Unknown | + + + | Ethnic Group | Unknown | + + + Author + + + | Author | [facility] [employer] | + + + | Organization | [facility] | + + + | Address | Unknown | + + + | Phone | Unavailable | + + + Support + + + + + | Name | Relationship | Address | Phone | + + + + + | Guevara Ceron | ECON | [address] | | | D | | [place] | | | | | [address] | | + + + + + Care Team Providers + +------+ + | Care Emt I/85 Name | Role | Phone | + [...] | | 2019 | Visit | [facility] | [address] | (Primary Dx); Sinus | | | | [address] | [address] | bradycardia; Mixed | | | | Way [address] | [place] [address] | hyperlipidemia; | | | | [place] [address] | [phone] | Essential | | | | [phone] | | hypertension, | | | | [...] finally resolved after several tr eatments in [place], Her current and previous testing and procedures [...] compliant with low-sodium diabetic compliant meals. Her spgrtrru-pn-ydj also orga annemarie and administers her medications [...] was seen in the emergency room at [facility] on March 01, 2018 after a fall [...] walking with walker and tolerates. 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 Lactobacillus-Inulin ([facility] [employer] [facility] PO) Take 1 tablet by mouth [...] No results found for: METF, NMETFX, TFNMFX, FICJIEE49YNT, AJEORC91WEQ, TOTEPI Echo: Last Echo : 2017: ([facility]). EF 60-65 percent. LV normal in size [...] and aortic arch are normal Echo: 2012: ([facility]). LV normal in size, wall thickness. EF [...] mmHg NON CARDIAC IMAGING?PROCEDURES Chest x-ray: 06/13/2016: ([facility]). Mildly enlarged cardiac silhouette, normal pulmona ry vasculature. No effusions. Aorta mildly calcified. VASCULAR IMAGING/PROCEDURES: Last Carotid ultrasound: 02/19/2017. Borderline mild stenosis to left proximal internal alonso tid artery. No significant stenosis within the right internal carotid artery. Bilateral ve rtebral arteries demonstrated antegrade flow Carotid ultrasound: 07/12: ([facility]): Left internal carotid artery 50-69 percent with [...] with poor R-wave progression Rate 42 bpm, OR 252 ms, QRS 90 ms, QTC 395 ms EK2016: Junctional rhythm, 50 bpm. QRS 80 ms, QTC 412 ms, low voltage QRS to inf erior leads EK09/20/2017: SR with marked sinus arrhythmia, 1st degree AVB. Rate 60 bpm, OR 272 ms, QR S 88 ms, QTC 422, non specific ST abn, tracing personally reviewed by me. EK10/08/2017: Sinus rhythm with first-degree AV block Rate 74 bpm, OR 260 ms, QRS 86 ms, QTC 439 ms, stable low voltage QRS to inferior leads, tracing personally reviewed by me. EK04/15/2018: Sinus bradycardia with first-degree AV block. Rate 59 bpm, OR 280 ms, QRS 8 6 ms, QTC [...] 4.1 Hgb A1C 6.3 (134) Labs: 03/01/2018: ([facility]): CBC: WBC 8.6 RBC 3.96, hemoglobin [...] VASCEP A for high triglycerides by her laundry marker supervisor Dr. Cortes. Though her heart rate is [...] follow-up on her lipi ds by her laundry marker supervisor, Dr. Cortes, regular labs performed by nephrology. [...] disease, without long-term current use of insulin ([facility]) Orders Placed This Encounter Procedures Electrocardiogram, 12-lead [...] past surgical history. Problem list. M[facility] 04/15/2018in this encounter Plan of Treatment +--------+---------+ + + + | Date | Type | Specialty | Care Team | Description | +--------+---------+ + + + | 07/26/ | Office | Nephrology | Stoney Rojas | | | 2018 | Visit | | [address] | | | | | | [address] | | | | | | [place] [address] | | | | | | [phone] | | | | | | | | +--------+---------+ + + + | 10/03/ | Office | Rheumatology | Lauri, | | | 2018 | Visit | | [address] | | | | | | [facility] | | | | | | [place] [address] | | | | | | [phone] | | | | | | | | +--------+---------+ + + + | 10/17/ | Office | Cardiology | Kathrin Christiansen | | | 2019 | Visit | | [address] | | | | | | [address] | | | | | | [place] [address] | | | | | | [phone] | | | | | | | [...] + + + + | Calculated R [place] | 27 | degrees | [facility] | + + + + + | Calculated T [place] | 53 | degrees | [facility] | + + + + + | Diagnosis | Please refer to | | [facility] | | | Providers office visit | | | | | note for Providers | | | | | Interpretation.Confirmed | | | | | by [facility] [place] Read Only, | | | | | ICA Johnny ([id number]), | | | | | assistant film editor oHme Rogers | | | | | (253) on 04/15/2018 | | | | | 10:20:15 AM | | | + + + + + + + + + + | Performing | Address | City/State/Zipcode | Phone Number | | Organization | | | | + + + + + | [facility] | [address] | [place] [address] | | + + + + + [...]
--- OUTSIDE RECORDS SUMMARY | ~2018-05-17 | XMS | Encounter Summary ---
Demographics + + + | Address | [address] | | | [place] [address] | + + + | Home Phone | | + + + | Preferred Language | Unknown | + + + | Marital Status | | + + + | Restorationism Affiliation | 1077 | + + + | Race | Unknown | + + + | Ethnic Group | Unknown | + + + Author + + + | Author | [facility] | + + + | Organization | [facility] [facility] | + + + | Address | Unknown | + + + | Phone | Unavailable | + + + Support + + + + + | Name | Relationship | Address | Phone | + + + + + | Guevara Ceron | ECON | [address] | | | D | | [place] | | | | | [address] | | + + + + + Care Team Providers + +------+ + | Care Sand Carrier Name | Role | Phone | + [...] + + | 05/02/ | Refill | [facility] | Lauri, | Chronic gout without | | 2018 | | Rheumatology [address] | [address] | tophus, unspecified | | | | [address] | [facility] | cause, unspecified | | | | [place] [address] | [place] [address] | site | | | | [phone] | [phone] | | | | | | | [...] [address] | | | | | | [place] [address] | | | | | | [phone] | | | | | | | | +--------+---------+ + + + | 10/03/ | Office | Rheumatology | Lauri, | | | 2018 | Visit | | [address] | | | | | | [facility] | | | | | | [place] [address] | | | | | | [phone] | | | | | | | | +--------+---------+ + + + | 10/17/ | Office | Cardiology | Kathrin Christiansen | | | 2019 | Visit | | [address] | | | | | | [address] | | | | | | [place] [address] | | | | | | [phone] | | | | | | | | +--------+---------+ + + + as of this encounter Visit Diagnoses + + | Diagnosis | + + | Chronic gout without tophus, unspecified cause, unspecified site | + +"
--- NOTE | 2018-05-17 13:27 | EKG ---
[facility] [address] [place], [place] [address] Signed Atrial fibrillation Nonspecific ST abnormality Abnormal ECG No previous ECGs available Confirmed by JOSELO HAMEED DO ([id number]) on 05/17/2018 1:27:12 PM Electronically Signed By: JOSELO HAMEED DO 05/17/18 1327 PATIENT NAME: YOHANNES HERNANDEZ Electrocardiogram DATE OF : 31 PHYSICIAN: JOSELO HAMEED DO REPORT #: [id number] REPORT IS CONFIDENTIAL AND NOT TO BE RELEASED WITHOUT AUTHORIZATION
[2018-05-17] MEDS ORDERED: AMOXICILLIN500 MG PO (14:45)
== END 2018-05-17 15:02 | disposition home or self-care (01) ==
LOC: ED 12:10
PROC: 0T9B70Z Drainage of Bladder with Drainage Device, Via Natural or Artificial Opening (ICD-10-PCS; principal; 2018-05-17)
DX: R41.0 Disorientation, unspecified (principal); H66.93 Otitis media, unspecified, bilateral; I10 Essential (primary) hypertension; E11.9 Type 2 diabetes mellitus without complications; E78.5 Hyperlipidemia, unspecified; Z90.710 Acquired absence of both cervix and uterus; Z90.49 Acquired absence of other specified parts of digestive tract; Z88.2 Allergy status to sulfonamides; Z88.5 Allergy status to narcotic agent; Z79.899 Other long term (current) drug therapy; Z51.81 Encounter for therapeutic drug level monitoring
CPT/HCPCS: 51701; 70450; 71045; 80053; 81001; 84484; 85025; 85610; 85730; 93005; 93010; 99285-25; J7040

== ENCOUNTER 2018-10-08 14:07 | Emergency (ER) | payer MEDICARE, OTHER ==
[~2018-10-08] VITALS: Ht 162.6 cm; Wt 90.7 kg
[~2018-10-08 14:07] MED LIST changes: +AMOXICILLIN500 MG PO
[2018-10-08] MEDS ORDERED: KEFLEX500 MG PO (16:06)
== END 2018-10-08 16:24 | disposition home or self-care (01) ==
LOC: ED 14:07
DX: L03.116 Cellulitis of left lower limb (principal); I10 Essential (primary) hypertension; E11.9 Type 2 diabetes mellitus without complications; E78.5 Hyperlipidemia, unspecified; Z88.2 Allergy status to sulfonamides; Z88.5 Allergy status to narcotic agent; Z79.899 Other long term (current) drug therapy
CPT/HCPCS: 99282

== ENCOUNTER 2021-02-03 15:15 | Inpatient (IN) | payer MEDICARE, OTHER ==
[~2021-02-03] VITALS: Ht 162.6 cm; Wt 83.7 kg
[~2021-02-03 15:15] MED LIST changes: +ACETYL L-CARNI1 EACH PO; +GABAPENTIN300 MG PO; +KEFLEX500 MG PO; +LEVOTHYROXINE50 MCG PO; +LOSARTAN POTASS25 MG PO; +MAG DELAY64 M1 PO; +OXYBUTYNIN CHLOR5 MG PO; +POTASSIUM CHLO10 ME1 PO; +QUETIAPINE FUMA25 MG PO; +RESTASIS1 DROP OU; +TRADJENTA5 MG PO; +VASCEPA1 GM PO; +VITAMIN B-12100 MCG PO; +VITAMIN C250 MG PO; +VITAMIN D325 MC2 PO; +WARFARIN SODIUM3 MG PO
--- OUTSIDE RECORDS SUMMARY | 2021-02-03 15:16 | XMS ---
PreManage Notification: YOHANNES HERNANDEZ Security Mis Specialist Events No recent Security Events currently on file [facility] There are no care providers on record at this time. [place]a has no Care Guidelines for this patient. EFrank VISIT COUNT (12 MO.) 1 AKI Santos TOTAL 1 NOTE: Visits indicate total known visits. ED/UCC VISIT TRACKING (12 MO.) 02/03/2021 15:15 AKI [place] TYPE: Emergency COMPLAINT: - L LEG SWELLING INPATIENT VISIT TRACKING (12 MO.) No inpatient visits to display in this time frame [id number]
--- NOTE | 2021-02-03 21:00 | NUR ---
PT UP TO BSC WITH 1 ASSIST AND FWW. PT HAD SIGNIFICANT LLE PAIN WITH MOVEMENT, INSTRUCTED PT ON WEIGHT BEARING TOLERATED AND STAND PIVOT TRANSFERS. PT GIVEN PRN TRAMADOL PER REQUEST.
--- NOTE | 2021-02-03 22:15 | NUR ---
PT COMPLAINS OF CONTINUED LLE PAIN 1 HOUR POST TRAMADOL ADMINISTRATION. PRN TYLENOL ADMINISTERED. WILL CONTINUE TO MONITOR.
--- NOTE | 2021-02-04 00:43 | NUR ---
UP TO BSC TO VOID WITH 1 ASSIST AND FWW.
--- NOTE | 2021-02-04 05:55 | NUR ---
PT CALLED STATING THE BP CUFF ON HER LEFT ARM WAS TOO TIGHT. LOOSENED BP CUFF, PT DENIES FURTHER NEEDS. CALL LIGHT IS CLOSE.
--- NOTE | 2021-02-04 07:10 | NUR ---
2PA TO BSC FOR VOID. PATIENT STIFF AND VERY PAINFUL
--- NOTE | 2021-02-04 07:40 | NUR ---
Spoke with Mona. She states she lives alone in a 1 story home with [address]. Son and DIL assist her as well as her nieces and nephews. She uses a walker, wc, and shower chair. Denies recent falls. Son does her finances for her. She denies financial issues. She states family assist her whenever needed. Plans on dc to home when cleared medically.
--- NOTE | 2021-02-04 08:14 | NUR ---
IN ROOM TO ASSESS PT AT THIS TIME. PT ALERT AND ORIENTED ASKING QUESTIONS APPROPRAITELY. COMPLAINS OF 7/10 PAIN IN LEFT LEG. LEG IS SEVERLY RED UP TO KNEE, SLIGHT PINKNESS ABOVE THE KNEE. LEG IS WARM TO TOUCH. PEDAL PULSE IS STRONG. PT ALSO COMPLAINS OF R UPPER ABDOMINAL PAIN THAT IS INTERMITENT. ABDOMEN IS ROUND AND SOFT, ACTIVE BOWEL TONES NOTED IN ALL FOUR QUADRANTS. NO INUSLIN NEEDED FOR BLOOD GLUCOSE IN RANGE. SHEY FROM CASE MANAGEMENT IN ROOM WITH PT AT THIS TIME.
--- NOTE | 2021-02-04 08:36 | NUR ---
MEDICATIONS ADMINISTERED. PT EATING BREAKFAST. CALL LIGHT WITHIN REACH. WILL CONTINUE TO MONITOR.
--- NOTE | 2021-02-04 09:15 | NUR ---
MEDICATIONS ADMINISTERED. PT SON IN ROOM WITH PT AT THIS TIME.
--- NOTE | 2021-02-04 11:36 | NUR ---
PHYSICAL THERAPIST IN ROOM WITH PT AT THIS TIME. PT REPORTS 8/10 PAIN IN LEFT LOWER LEG. GIVEN PRN TYLENOL (SEE EMAR).
--- NOTE | 2021-02-04 12:00 | NUR ---
REPORT RECEIVED FROM CCU RN AND PT ARRIVED VIA BED. SHE IS ALERT AND ORIENTED. REPORTS 10/10 PAIN IN LLE AND ADMIN. TRAMADOL AND REPOSITIONED. LLE IS REDDENED WITH +2 EDEMA. ELEVATED ON PILLOW. IV SITE WNL AND FLUSHES WELL. DISCUSSED MEDS, POC. LEFT RESTING WITH ALARM ON AND CALL LIGHT IN REACH.
--- NOTE | 2021-02-04 16:53 | NUR ---
BEDSIDE REPORT RECIEVED FROM SILVER RN, PT IN BED RESTING, ROOM AIR, L LEG ELEVATED ABLE TO PALPATE PULSE, TENDER AND HOT TO TOUCH
--- NOTE | 2021-02-04 18:41 | NUR ---
RN AND CHOPPING MACHINE OPERATOR IN ROOM TO HELP PT WITH BSC, HEAVY 2A STAND PIVOT ABLE TO VOID 200CC
--- NOTE | 2021-02-04 18:51 | NUR ---
PT COMPLAINING OF NOT HAVING A BOWEL MOVEMENT, NURSE INITIATED ORDERS FOR BOWEL MEDS ORDERED
--- NOTE | 2021-02-04 19:19 | NUR ---
pt called to let staff know she was done with her prune juice, pillow under right arm for comfort
--- NOTE | 2021-02-04 19:30 | NUR ---
PATIENT RESTING QUIETLY IN BED WATCHING TV. THIS RN RECEIVED SHIFT REPORT FROM MARKEL DC. PATIENT HAS NO CURRENT CARE NEEDS. CALL LIGHT JUAN ALBERTO HELMS.
--- NOTE | 2021-02-04 20:00 | NUR ---
in to help pt turn off tv, get vitals, rn informed of bp, pt does not 'feel like' the need to void at this time, she states to went earlier, will round back on pt
--- NOTE | 2021-02-04 21:00 | NUR ---
PATIENT HAS C/O 11/21 PAIN IN HER LLE AND 50MG ULTRAM PO GIVEN WITH EVENING MEDS. VS ARE STABLE. PATIENT GIVEN A WARM BLANKET AND IV FLUSHES WELL. REDNESS AND FIRE MARSHAL REFINERY LLE DECREASING SLIGHTLY FROM OUTLINED BOARDS DRAWN ON PATIENT'S LEG. CAP REFILL IS LESS THAN 3 SECONDS IN THE LEFT TOES AND PEDAL PULSE CAN BE PALPATED. PATIENT GIVEN FRESH ICE WATER AND A WARM BLANKET GIVEN. ROOM BLINDS CLOSED TO HELP KEEP ROOM WARM. PATIENT HAS NO OTHER NEEDS AT THIS TIME. CALL LIGHT IS IN REACH.
--- NOTE | 2021-02-04 22:45 | NUR ---
in to assist pt to the bsc, 2pa pivot to the bsc, back to bed, output recorded
--- NOTE | 2021-02-04 22:45 | NUR ---
THIS RN ENTERED PATIENT'S ROOM AND MARKEL HOWE AND MARNIE DILL ASSISTING PATIENT UP TO THE BEDSIDE COMMODE. 3 PERSON ASSIST TO THE BEDSIDE AND 2 PERSON ASSIST WITH FWW TO STAND AND PIVOT TO COMMODE. 2PA AND FWW TO STAND AND PIVOT BACK TO BED. PATIENT VOIDED 400MLS. PATIENT HAS BEEN STARTED ON BOWEL PROTOCOL MEDS, BUT HAS HAD NO BM YET. PATIENT'S LEFT LEG REPOSITIONED ONTO PILLOWS AND PATIENT POSITIONED TO COMFORT IN BED. PATIENT HAS NO OTHER CARE NEEDS AT THIS TIME. CALL LIGHT IS IN REACH AND LIGHTS TURNED DOWN.
--- NOTE | 2021-02-05 00:35 | NUR ---
PATIENT RESTING QUIETLY IN LOW FOWLERS POSITION WITH LLE ELEVATED ON PILLOWS. PATIENT'S EYES ARE CLOSED, RESPIRATIONS ARE REGULAR AND EVEN, AND CALL LIGHT IS IN REACH. PATIENT HAS NO CURRENT CARE NEEDS.
--- NOTE | 2021-02-05 02:04 | NUR ---
PATIENT CONTINUES RESTING IN LOW FOWLERS POSITION WITH LLE ELEVATED ON PILLOWS. PATIENT RESPIRATIONS ARE REGULAR AND EVEN WITH A SLIGHT SNORE. CALL LIGHT IS IN REACH AND NO CARE NEEDS NOTED AT THIS TIME.
--- NOTE | 2021-02-05 03:49 | NUR ---
PATIENT STILL RESTING QUIETLY IN LOW FOWLERS POSITION WITH HER EYES CLOSED, RESPIRATIONS REGULAR AN EVEN WITH A SLIGHT SNORE, AND CALL LIGHT IS IN REACH. PATIENT HAS N O CURRENT NOTED CARE NEEDS.
--- NOTE | 2021-02-05 05:54 | NUR ---
PATIENT CONTINUES TO SLEEP QUIETLY WITH REGULAR AND EVEN RESPIRATIONS AND A SLIGHT SNORE. NO CARE NEEDS NOTED AT THIS TIME AND CALL LIGHT IS IN REACH.
--- NOTE | 2021-02-05 06:25 | NUR ---
IN TO GET VITALS, PT RESTING DEEPLY, DENIES NEED TO VOID, RN AWARE, FRESH ICE WATER FILLED
--- NOTE | 2021-02-05 06:44 | NUR ---
PATIENT AM ASSESSMENT COMPLETE AND ESSENTIALLY UNCHANGED FROM PM ASSESSMENT. LLE REMAINS RED/WARM/EDEMATOUS 3+, BUT IS NO WORSE. LLE PEDAL PULSE STILL PALPABLE AND CAP REFILL TO TOES LESS THAN 3 SECONDS. PATIENT SAYS SHE HAS SLEPT WELL, BUT NOW THAT SHE IS AWAKE SHE IS HAVING 10/10 PAIN IN THE LLE. ULTRAM AND TYLENOL PO GIVEN. PATIENT DENIED THE NEED TO VOID AT THIS TIME. CALL LIGHT IS IN REACH. BREAKFAST ORDER CALLED TO KITCHEN. LIGHTS TURNED DOWN AT PATIENT'S REQUEST.
--- NOTE | 2021-02-05 07:05 | NUR ---
Report received from Valeriano JEAN BAPTISTE. Pt resting in bed with eyes closed, respirations even and unlabored. No needs identified at this time. Call light in reach. Will continue plan of care.
--- NOTE | 2021-02-05 08:00 | NUR ---
CBG checked, 138, no SS insulin required. Pt up to BSC with heavy 2PA, gait belt and FWW. Transfers to chair with stand pivot, 2PA. Assessment complete. LLE edematous, valente, numerous open areas and dried scabs noted, pt c/o pain to leg. Made plan for PRN medications when available. Elevated on pillows, NICK. Physical therapy in room with pt.
--- NOTE | 2021-02-05 08:04 | NUR ---
PT STILL SLEEPING. UPDATED WHITE BOARD. CALL LIGHT IN REACH. WILL CHECK BACK IN WITH PT AGAIN SHORTLY.
--- NOTE | 2021-02-05 08:33 | NUR ---
ASSISTED MARKEL JACKSON AND MILAD WITH AMBULATING PT FROM EDGE OF BED TO BSC WITH GAIT BELT AND FWW. ONCE PT WAS FINISHED, ASSISTED MARKEL JACKSON AND PT WITH HELPING PT TO STAND, PERICARE AND PIVOTING PT OVER TO CHAIR. PT AT TIMES GOT SHAKY AND KNEES WOULD OCCASIONALLY START TO BUCKLE. CALL LIGHT WITHIN REACH, NO FURTHER NEEDS AT THIS TIME.
--- NOTE | 2021-02-05 10:00 | NUR ---
IV ABX complete, saline locked. Educated patient regarding plan of care, medications, she is agreeable. Son at bedside and all questions answered.
--- NOTE | 2021-02-05 10:45 | NUR ---
PRN tylenol and tramadol administered for 10/10 pain to LLE. Elevated and placed on pad for drainage noted.
--- NOTE | 2021-02-05 12:00 | NUR ---
CBG checked and SS insulin provided. Pt's son in room, reviewed plan of care. LLE elevated on pillows, chux pads as some weeping noted from top of foot. Pt reports pain level tolerable at this time, remains up in chair. Call light in reach.
--- NOTE | 2021-02-05 14:01 | NUR ---
Notifed regarding BP of 130/36 (57). In room to assess patient who states she feels slightly dizzy and drowsy. CBG checked, 128. Pt reports feeling hungry, yogurt ordered. Pt is sitting up in chair, warm blanket provided, LLE elevated on pillows.
--- NOTE | 2021-02-05 15:20 | NUR ---
Scheduled medications administered. VSS. PRN tylenol and toradol administered for 8/10 pain to LLE. Warm to touch, elevated on pillows, small amount drainage noted. Pt states "Feeling much better" after eating snack. No other needs at this time.
--- NOTE | 2021-02-05 15:48 | NUR ---
PT ACCEPTED THE OFFER OF BB. PT REFUSED SHOWERCAP. GAVE PT BB AND PROVIDED WARM BLANKETS. CALL LIGHT WITHIN REACH, NO FURTHER NEEDS AT THIS TIME.
--- NOTE | 2021-02-05 17:00 | NUR ---
SS insulin administered for CBG 152. Pt's family brings pia dinner in to patient, allowed by this RN. Pt transfers to BSC with stand pivot, 2PA, gait belt with FWW. Serousanguinous drainage weeping from open sore on top of L foot. Pt states very painful. Elevated on pillows. Made plan for PRN medications when available
--- NOTE | 2021-02-05 17:10 | NUR ---
PT SITTING IN CHAIR WATCHING TV, AWAITING [employer] DINNER BROUGHT BY FAMILY MEMBER. CALL LIGHT WITHIN REACH, NO FURTHER NEEDS AT THIS TIME
--- NOTE | 2021-02-05 19:10 | NUR ---
SHIFT REPORT RECEIVED FROM FREDYVTSAMANTHA JACKSON AT BEDSIDE. pt AWAKE AND RESTING IN CHAIR, FAMILY IN ROOM. LLE REMAINS ELEVATED ON PILLOWS X2. pt DENEIS NEEDS OR CONCERNS. REDDNESS REMAINS WITHIN OUTLINED AREA. CALL LIGHT IN REACH.
--- NOTE | 2021-02-05 21:15 | NUR ---
ASSESSMENT COMPLETE, SCHEDULED MEDS GIVEN ALONG WITH PRN PAIN MEDICATION (SEE EMAR) FOR 10/10 PAIN IN LLE. pt UP FROM CHAIR 2PA WITH USE OF GAIT BELT AND FWW TO VOID AND THEN STAND PIVOT TO BED. REDDNESS WORSENS WITH GRAVITY, BUT RETURNS TO BASELINE WHEN ELEVATED. CMS INTACT, BILATERAL PEDAL PULSES NOTED. +3 LLE EDEMA, +1 EDEMA TO RLE. FRESH WATER PROVIDED, VSS. CALL LIGHT IN REACH.
--- NOTE | 2021-02-05 22:15 | NUR ---
SCHEDULED ACCUCHECK COMPLETE, INSULIN SS ADMINISTERED (SEE EMAR). pt AWAKE AND RESTING IN BED, BED ALARM FOR SAFETY. LLE REMAINS ELEVATED WITH PILLOWS X2 IN PLACE. NO FURTHER NEEDS, CALL LIGHT IN REACH.
--- NOTE | 2021-02-05 23:55 | NUR ---
pt call light on, requesting a boost in bed, pillow possitione for pt, one under right hip, no further needs at this time
--- NOTE | 2021-02-05 23:59 | NUR ---
CALL LIGHT ANSWERED, pt BOOSTED IN BED WITH HELP FROM MARNIE DILL. PILLOW PLACED UNDER RIGHT HIP FOR COMFORT, LLE REMAINS ELEVATED WITH PILLOWS X2. NO FURTHER NEEDS, CALL LIGHT IN REACH. BED ALARM RESUMED FOR SAFETY.
--- NOTE | 2021-02-06 02:59 | NUR ---
CALL LIGHT ANSWERED, pt TO VOID VIA BEDPAN, UNMEASURED VOID X1. BEDPAN REMOVED, SASCHA CARE DONE. ASSESSMENT COMPLETE, NO ACUTE CHANGES. LLE REMAINS ELEVATED WITH PILLOWS, PILLOW ALSO PLACED UNDER LEFT HIP FOR COMFORT. REDDNESS REMAINS WITHIN OUTLINE, pt ABLE TO WIGGLE TOES-CMS INTACT. WARM TO THE TOUCH.PRN TYLENOL GIVEN FOR 8/10 PAIN IN LLE, SEE EMAR. NO FURTHER NEEDS, CALL LIGHT IN REACH.
--- NOTE | 2021-02-06 03:00 | NUR ---
in to assist pt onto bedpan with rn, voided, pillow under left hip now, no further needs at this time
--- NOTE | 2021-02-06 04:50 | NUR ---
pt RESTING IN BED WITH EYES CLOSED, RR EVEN AND UNLABORED. NO DISTRESS NOTED. BED ALARM ON, CALL LIGHT IN REACH.
--- NOTE | 2021-02-06 07:00 | NUR ---
Report received from Sofya JEAN BAPTISTE. Pt resting in bed with eyes closed, respirations even and unlabored. No needs identified at this time, call light in reach. Will continue plan of care.
--- NOTE | 2021-02-06 08:02 | NUR ---
PT IS 2PA WITH FWW AND GAIT BELT TO THE COMMODE. PT VOIDED ANS IS NOW UP IN THE CHAIR. FRESH COFFEE GIVEN. CALL LIGHT WITHIN REACH. NO FURTHER NEEDS AT THIS TIME.
--- NOTE | 2021-02-06 09:00 | NUR ---
Scheduled medications administered, CBG WNL, no insulin provided. Pt up to chair with 2PA, gait belt and FWW. LLE painful, red and weeping small amount serousanguinous fluid. Bowel regimen medications administered. Bowel tones active, pt passing gas.
--- NOTE | 2021-02-06 10:25 | NUR ---
Physical therapy in room to work with patient. PRN tramadol and toradol administered. Pt is extremely painful with any touch, movement of LLE. Wrapped lightly to prevent drainage leaking while working with PT. Nonadherent pad and sterile gauze wrap applied. Will reassess post PT
--- NOTE | 2021-02-06 12:12 | NUR ---
Pt c/o pain to LLE. Unwrapped, elevated on 2 pillows with absorbent pad. Reports relief found. No other needs at this time.
--- NOTE | 2021-02-06 13:42 | NUR ---
PT IN CHAIR AND REPORTS PAIN IN LEFT LEG. PT DENIES AN URGE TO VOID, FRESH COFFEE GIVEN. CALL LIGHT WITHIN REACH. NO FURTHER NEEDS AT THIS TIME.
--- NOTE | 2021-02-06 13:50 | NUR ---
MARNIE DICK, UPDATED THIS RN REGARDING PTS BLOOD PRESSURE. PT CONDITION UNCHANGED. NO APPARENT DISTRESS. PTS PRIMARY RN UPDATED.
--- NOTE | 2021-02-06 16:50 | NUR ---
Medications reconciled using pharmacy records, Patient interview and personal med list
--- NOTE | 2021-02-06 16:51 | NUR ---
Patient receiving vancomycin, dosed and monitored by pharmacy. Vancomycin trough level due 02/07/21 @ 5528
--- NOTE | 2021-02-06 16:52 | NUR ---
Patient is chronically anticoagulated with warfarin. Pharmacy is monitoring INR and dosing warfarin
--- NOTE | 2021-02-06 18:17 | NUR ---
PATIENT UP TO BSC AND BACK TO CHAIR, 2PA FWW GAIT BELT. VITALS AND I&O'S CHARTED. WARM BLANKET GIVEN. CALL LIGHT IN REACH. NO FURTHER NEEDS AT THIS TIME.
--- NOTE | 2021-02-06 18:22 | NUR ---
This RN concerned about pt lack of BM, magnesium citrate ordered through [facility]. Verified with telepharmacist. Administered dose.
--- NOTE | 2021-02-06 19:00 | NUR ---
SHIFT REPORT RECEIVED FROM ANAT JACKSON AT BEDSIDE. pt AWAKE AND RESTING IN CHAIR, LLE ELEVATED WITH PILLOWS X2. REDDNESS WITHIN OUTLINE, WILL CONTINUE TO MONITOR. NO FURTHER NEEDS, CALL LIGHT IN REACH.
--- NOTE | 2021-02-06 20:09 | NUR ---
VERBAL REPORT GIVEN TO MARKEL HOWE, MARKEL HOWE TO ASSUME CARE FOR pt.
--- NOTE | 2021-02-06 20:55 | NUR ---
CALL LIGHT ANSWERED. 2PA WITH GAIT BELT AND FWW TO BS FOR VOID. TRANSFERRED TO BED, HEAVY ASSIST TO STAND, MINIMAL WEIGHT BEARING ON LEFT FOOT. SEROSANGUINOUS DRAINAGE NOTED FROM FOOT, FLOOR CLEANED, CHUX CHANGED, SMALL AMT OF DRAINAGE ON CHUX. REPOSITIONED IN BED, LEFT LEG ELEVATED ON TWO PILLOWS. PRIMARY RN CARLEY NOW IN ROOM.
--- NOTE | 2021-02-06 21:00 | NUR ---
2 PA FROM CHAIR TO BEDSIDE COMMODE TO BED.V/S AND I&O TAKEN AND RECORDED. CALL LIGHT WITHIN REACH.
--- NOTE | 2021-02-06 21:18 | NUR ---
PT ALERT, JUST BACK TO BED AFTER STAFF ASSISTED TO BSC, VOIDED, NO BM, SHE REPORT SHE DID PASS FLATUS. SHE REPORTS HER PAIN 8/10. TRAMADOL PRN GIVEN AT THIS TIME.
--- NOTE | 2021-02-07 | NUR ---
2 PA TO BEDSIDE COMMODE USING WALKER. PATIENT IS BACK IN BED. ICE WATER REFILLED. CALL LIGHT AND SIDE TABLE WITHIN REACH. NO FURTHER NEEDS AT THIS TIME.
--- NOTE | 2021-02-07 00:05 | NUR ---
pt UP HEAVY 2PA WITH GAIT BELT AND FWW FROM BED TO BSC AND BACK TO BED. pt SLOW MOVING, BUT STEADY ON FEET. LLE ELEVATED WITH PILLOWS X2. NO FURTHER NEEDS, CALL LIGHT IN REACH.
--- NOTE | 2021-02-07 01:55 | NUR ---
PT RESTING QUIETLY IN BED, EYES CLOSED RR EVEN 18 BPM, NO DISTRESS NOTED, HER LEFT FOOT ELEVATED ON PILLOW.
--- NOTE | 2021-02-07 05:16 | NUR ---
PT HAS SLEPT WELL OVER SHIFT, SHE HAS REQUESTED PAIN MEDICATION ONCE AT START OF SHIFT WAS ADMINISTERED TRAMADOL PRN. SHE HAS BEEN REPOSTIONED FREQUENT, WITH LEFT LEG ELEVATED ON PILLOW, SHE REMAINS A TWO PERSON ASSIST TO BEDSIDE COMMODE, VOIDING WELL, NO BM THIS SHIFT.
--- NOTE | 2021-02-07 06:46 | NUR ---
PT REPORTS 8/10 PAIN AFTER UP TO BEDSIDE COMMODE WITH TWO PERSON AND FWW. PT TOLERATED ACTIVITY FAIR. TRAMADOL ADMINISTERED PRN
--- NOTE | 2021-02-07 07:23 | NUR ---
Report received from Ines JEAN BAPTISTE. Pt resting in bed with eyes closed, even and unlabored respirations. No needs identified at this time. Will continue plan of care.
--- NOTE | 2021-02-07 07:35 | NUR ---
PT AWAKE IN BED WITH LEFT LEG ELEVATED. PT WANTS TO EAT BREAKFAST IN BED AND TO GET OUT OF BED WITH PHYSICAL THERAPY. PT AGREES TO A BED BATH LATER TODAY. CALL LIGHT IS WITHIN REACH. WHITE BOARD UPDATED, NO FURTHER NEEDS AT THIS TIME.
--- NOTE | 2021-02-07 08:43 | NUR ---
Scheduled medications administered. Mag citrate given, pt tolerates fair. Pt c/o severe pain to LLE, states relief when elevated further. IV abx infusing. CMS intact to BLE. Bowel tones active.
--- NOTE | 2021-02-07 09:57 | NUR ---
VSS, A+O. I/Os complete. Pt up to chair with therapies, c/o pain in LLE and would like to nap. Back to bed with 2PA, gait belt, FWW. LLE elevated on pillows. Small amount serosanguinous drainage noted, 3+ edema in LLE. Pt states "feeling her stomach moving", denies trying for a BM at this time.
--- NOTE | 2021-02-07 10:54 | NUR ---
Spoke with pt and her daughter Aleida. Discussed is recommending SNF placement. Pt and Aleida not in agreement with this. Aleida states she and Rony plan to move in with pt as long as needed. She is requesting HHPT/OT. Pt has walker, wc, commode, raised toilet seat, shower chair at home. They do not feel pt needs any further equipment. I checked with Aleida to confirm she is aware, pt requires 2-3 person assist and she is. States they have alot of family and all will assist if needed. Plans for dc to home when cleared medically. FAmily would like wc transport and will need courtesy lift by EMS when patient is discharged.
--- NOTE | 2021-02-07 11:30 | NUR ---
PT RESTING IN BED, BED BATH COMPLETED BY THIS BEACH ATTENDANT. LEFT LEG ELEVATED AND FAMILY IN THE ROOM. WARM BLANKETS GIVEN, NO FURTHER NEEDS AT THIS TIME.
--- NOTE | 2021-02-07 11:44 | NUR ---
Dr Cobos in room, this RN at bedside. LLE elevated on several pillows, foot of bed elevated. Pt resting with no pain mentioned at this time.
--- NOTE | 2021-02-07 12:15 | NUR ---
Pt up to BSC with 2PA for large soft BM. Pt states that her stomach "feels much better" afterwards.
--- NOTE | 2021-02-07 13:30 | NUR ---
IV ABX infusing WNL
--- NOTE | 2021-02-07 16:50 | NUR ---
Scheduled medications administered. Pharmacist Tiffany in room and provides education regarding warfarin dose. Pt boosted in bed, leg elevated. No other needs at this time.
--- NOTE | 2021-02-07 18:00 | NUR ---
Pt repositioned in bed. LLE elevated on pillows higher than pt's heart. Pt states comfortable. VSS, I/Os completed. Dinner tray cleared, room tidied. Pt in good spirits and states no pain at this time. Call light reach.
--- NOTE | 2021-02-07 19:50 | NUR ---
RECEIVED REPORT FROM DAY SHIFT RN. PATIENT IS RESTING IN BED. NO NEEDS NOTED. CALL LIGHT IN REACH.
--- NOTE | 2021-02-07 20:22 | NUR ---
PATIENT ASSISTED TO THE [facility] [place] A 2PA, GAIT BELT, AND FWW. PATIENT IS WEAK WITH MOVEMENT AND PAINFUL IN HER LLE. PATIENTS VITALS TAKEN AND RECORDED. INTAKE AND OUTPUT RECORDED. PATIENT WAS ABLE TO VOID AND HAVE A LARGE LOOSE BM. PATIENT IS BACK IN BED RESTING. PATIENT RATES PAIN AT A 7/10 IN HER LLE. PATIENT GIVEN PRN TYLENOL PER ORDER. PATIENTS SCHEDULED MEDICATIONS GIVEN PER ORDER. PATIENTS LLE IS ELEVATED ON X2 PILLOWS. PATIENTS LLE HAS REDNESS, SCABS, AND IS OUTLINED. PATIENTS IV IS SL AND IV FLUSHES WELL. PATIENT DENIES ANY FURTHER NEEDS. CALL LIGHT IN REACH. AND FRESH ICE WATER PROVIDED. ALARM PLACED ON FOR SAFETY.
--- NOTE | 2021-02-07 22:16 | NUR ---
PATIENT GIVEN PRN PAIN MEDICATION FOR 6/10 PAIN IN HER LLE. TOOK PICS OF LLE AND PLACED IN CHART. PATIENT SIGNED CONSENT FOR PIC TO BE TAKEN OF HER LLQ. PATIENT DENIES ANY FURTHER NEEDS. CALL LIGHT IN REACH.
--- NOTE | 2021-02-08 00:24 | NUR ---
PATIENT IS RESTING IN BED WITH EYE SCLOSED, RR 17. CALL LIGHT IN REACH.
--- NOTE | 2021-02-08 02:41 | NUR ---
PATIENT IS RESTING IN BED WITH EYES CLOSED, RR 18. CALL LIGHT IN REACH.
--- NOTE | 2021-02-08 04:44 | NUR ---
PATIENT IS RESTING IN BED WITH EYES CLOSED, RR 15. CALL LIGHT IN REACH.
--- NOTE | 2021-02-08 05:22 | NUR ---
PATIENT [place]ISTED [place] [facility] [place], GAIT BELT, AND FWW. PATIENT WAS ABLE TO VOID AND HAVE SMALL LOOSE BM. PATIENT IS BACK IN BED RESTING. PATIENT RATES PAIN AT AN 8/10 IN HER LLE. PATIENT GIVEN PRN PAIN MEDICATION PER ORDER. VITALS TAKEN AND RECORDED. INTAKE AND OUTPUT RECORDED. PATIENTS ICE WATER REFRESHED. PATIENT DENIES ANY FURTHER NEEDS. CALL LIGHT IN REACH.
--- NOTE | 2021-02-08 07:00 | NUR ---
Report received from Silvina JEAN BAPTISTE. Pt resting in bed, A+O. States no pain or needs at this time. On room air, saline locked. Will continue plan of care.
--- NOTE | 2021-02-08 08:00 | NUR ---
Scheduled medications administered, IV ABX infusing WNL. Pt up to chair with 2PA, gait belt and FWW. Tolerates well and marked improvement from days past. Pt uses BSC to void. LLE assessed, appears hammer runner in color, pt still c/o severe pain with gravity/movement/touch. Breakfast delivered to patient.
--- NOTE | 2021-02-08 09:15 | NUR ---
IV Rocephin infusing WNL. Dr Foster at bedside to assess cellulitis. Pt tolerates well. Ajith Uribe at bedside.
--- NOTE | 2021-02-08 09:20 | NUR ---
Spoke with Shi, LLE remains edematous with blisters. Per. note not improving. Pt cont. to plan on dc tohome with family to move in with her. She denies needs.
--- NOTE | 2021-02-08 09:40 | NUR ---
PT AWAKE IN CHAIR WATCHING TV WITH FAMILY IN THE ROOM. CALL LIGHT WITHIN REACH. NO FURTHER NEEDS AT THIS TIME.
--- NOTE | 2021-02-08 09:59 | NUR ---
PT CALL LIGHT ON. PTS SON REPORTS IV PUMP IS ALARMING. THIS RN TO ROOM. IV ABX INFUSION COMPLETE. IV FLUSHED AND SALINE LOCKED PER PROTCOL, ALCOHOL CAP APPLIED. PT DENIES ADDITIONAL REQUESTS OR COMPLAINTS. CALL LIGHT WITHIN REACH. PTS PRIMARY RN, MANUEL, DAVID.
--- NOTE | 2021-02-08 10:55 | NUR ---
Silbadine cream applied to open areas of LLE and wrapped lightly with kerlex guaze per MD order. Pt tolerates well, education provided extensively regarding s/sx of reaction to ointment. Hot tea provided, warm blankets, repositioned with pillows, call light in reach. Will continue to monitor.
--- NOTE | 2021-02-08 13:08 | NUR ---
PT WAS ASLEEP, DID NOT DISTURB. WILL FOLLOW
--- NOTE | 2021-02-08 13:34 | NUR ---
PT AWAKE IN THE CHAIR WITH LEG ELEVATED WATCHING TV. FAMILY IN THE ROOM. CALL LIGHT WITHIN REACH. PT DENIES NEEDING TO VOID. MARKEL JACKSON NOTIFIED.
--- NOTE | 2021-02-08 17:49 | NUR ---
Rounded on patient, using the BSC with SCREWHEAD STONER AND POLISHER assistance.
--- NOTE | 2021-02-08 18:00 | NUR ---
PATIENT TO BSC AND THEN TO BED FROM CHAIR, 2PA, FWW GAITBELT. VITALS AND I&O'S CHARTED. WARM BLANKET GIVEN. CALL LIGHT IN REACH. NO FURTHER NEEDS AT THIS TIME.
--- NOTE | 2021-02-08 19:20 | NUR ---
RECEIVED REPORT FROM DAY SHIFT RN. PATIENT IS RESTING IN BED WATCHING TV. PATIENT DENIES ANY NEEDS AT THIS TIME. CALL LIGHT IN REACH.
--- NOTE | 2021-02-08 21:38 | NUR ---
PATIENT ASSESMENT COMPLETED. PATIENT ASSISTED TO THE [facility] [place] A 2PA W/FWW. PATIENT WAS ABLE TO VOID. PATIENT IS PAINFUL WITH AMBULATION. PATIENT IS BACK IN BED RESTING. PATIENTS VITALS TAKEN AND RECORDED. INTAKE AND OUTPUT RECORDED. PATIENT RATES PAIN IN HER LLE A 6/10. PATIENT GIVEN PRN TYLENOL PER ORDER. PATIENT GIVEN SCHEDULED MEDICATION PER ORDER. DRESSING ON LLE CHANGED PER ORDER. PATIENTS IV FLUSHED AND REDRESSED. PATIENT IS SL PER ORDER. PATIENT DENIES ANY FURTHER NEEDS. CALL LIGHT IN REACH.
--- NOTE | 2021-02-08 22:07 | NUR ---
PATIENT RATES PAIN AT A 8/10 IN HER LLE. PATIENT GIVEN PRN PAIN MEDICATION PER ORDER. PATIENT DENIES ANY FURTHER NEEDS. CALL LIGHT IN REACH.
--- NOTE | 2021-02-08 23:32 | NUR ---
PATIENT IS RESTING IN BED WITH EYES CLOSED, RR 19. CALL LIGHT IN REACH.
--- NOTE | 2021-02-09 02:30 | NUR ---
PATIENT REPOSITIONED IN BED. PATIENTS LLE REMAINS ELEVATED ON X2 PILLOWS. PATIENT RATES PAIN IN HER LLE AT A 6/10. PATIENT GIVEN PRN TYLENOL PER ORDER. PATIENT PROVIDED WITH FRESH ICE WATER. PATIENT DENIES ANY FURHTER NEEDS. CALL LIGHT IN REACH.
--- NOTE | 2021-02-09 05:56 | NUR ---
PATIENT ASSISTED TO THE BSC A 2PA W/FWW. PATIENT WAS ABLE TO VOID. PATIENT IS BACK IN BED RESTING. PATIENTS VITALS TAKEN AND RECORDED. PATIENTS INTAKE AND OUTPUT RECORDED. PATIENT RATES PAIN IN HER LLE AT A 6/10. PRN PAIN MEDICATION GIVEN PER ORDER. PATIENT PROVIDED WITH FRESH ICE WATER. PATIENT DENIES ANY FURTHER NEEDS. CALL LIGHT IN REACH.
--- NOTE | 2021-02-09 07:30 | NUR ---
Shift report received from MARKEL Cool, pt resting safely in bed w/ call light in reach, no needs at this time
--- NOTE | 2021-02-09 10:00 | NUR ---
2PA w/FWW to chair, pt sitting up safely w/ call light in reach. Morning assesment complete, scheduled meds given, IV abx hung and infusing, and wound care completed on LLE per provider orders. Pt denies any pain or needs at this time, son at bedside visiting.
--- NOTE | 2021-02-09 10:36 | NUR ---
Spoke with pt and her son, Rony. Discussed with son, our [address] states concern for family to care for pt as she is a heavy 2 person assist. Son states he is aware and he and also cared for his father for over a year who passed in July. He states they have multiple people to assist. Three of them are moving in with pt to care for her. They have all the equipment needed and are putting in a portable ramp tomorrow. They also have PT in the family who will assist.
--- NOTE | 2021-02-09 10:51 | NUR ---
131/43 BP. 63 MAP. 56 Pulse. Left Arm. Patient is in chair with call light. Visitor is in room.
--- NOTE | 2021-02-09 12:00 | NUR ---
Pt sitting up in chair w/ call light in reach, pt worked w/ PT, c/o 11/21 pain in LLE, PRn pain medication given per request, no furhter needs at this time
--- NOTE | 2021-02-09 13:19 | NUR ---
124/44 BP. 56 Pulse. Call light is in reach. RN is aware of patient's lower diastolic.
--- NOTE | 2021-02-09 13:21 | CONS ---
[facility] [address], [place] [address] Signed DATE OF CONSULTATION: 02/06/2021 CONSULTING PHYSICIAN: Fredy Kunz MD REQUESTING PHYSICIAN: Joselo Clark MD PROBLEM: Left lower extremity cellulitis and possible subepithelial hematoma. HISTORY: This 85-year-old white woman with obesity, has been hospitalized since admission on February 03, 2021, noting intense erythema and swelling and edema of the left lower extremity, initially above the leg. This has been improving, progressed with IV antibiotic therapy and leg elevation. She was initially evaluated and admitted by Dr. Dougherty and care assumed by Dr. Clark on 05 February. She was noted to have development of subepithelial possible hematoma in the left ankle and over the dorsum of the foot as well. Inquiry was made as to whether drains could be undertaken so as to improve her overall situation. PAST MEDICAL HISTORY: Notable for paroxysmal atrial fibrillation and hypertension, hyperlipidemia, some level of dementia, chronic pain syndrome, type 2 diabetes, overactive bladder, and chronic renal disease, creatinine between 1.3 and 1.5. Most recent creatinine obtained on February 03 was 1.73. PHYSICAL EXAMINATION: GENERAL: Alert and oriented. She remembers me from the past. CHEST: Shows normal respiratory excursion. Pulse appears to be regular. Examination shows her to be in a chair watching a football game. Her ankle is not particularly higher than her heart, but is certainly not dependent. Examination of right leg shows chronic changes of various types, but no sign of cellulitis, inflammation, or edema particularly. On the left side, there was marked erythema and edema of the forefoot and lower extremity. A lying designating the area of cellulitis shows there has been a retreat of the size of the cellulolytic process at least by that measure. Gentle palpation of the dorsum of the foot and lateral ankle shows already some discontinuity of skin level there and some incomplete drainage. ASSESSMENT: Drainage of these 2 wounds would not appreciably alter her course as a family Electronically Signed By: FREDY KUNZ MD 02/09/21 1321 PATIENT NAME: YOHANNES HERNANDEZ CONSULTATION DATE OF : 31 REPORT #: [id number] PHYSICIAN: FREDY KUNZ MD PCP: MEÑO SMITH MD REPORT IS CONFIDENTIAL AND NOT TO BE RELEASED WITHOUT AUTHORIZATION [facility] [address] [place] [id number] Signed superficial and more dominantly associated with generalized edema of the forefoot. There are unlikely to be infected at this time and it is unlikely in my opinion that drainage (at least at this time) would be of any significant benefit to the improvement of her cellulitis at this point. She certainly does not have findings of an undrained abscess at the end of that sort. I reassured the patient we will continue to follow with her. If it looks more appropriate that unroofing of the thin bolus area of skin in relation to the hematoma might be undertaken. She will certainly reconsider it. MD GARIMA Griffin/SADIE /[id number] cc: Joselo Clark MD Copies: JOSELO CLARK DO ~ Electronically Signed By: FREDY KUNZ MD 02/09/21 1321 PATIENT NAME: YOHANNES HERNANDEZ CONSULTATION DATE OF : 31 REPORT #: [id number] PHYSICIAN: FREDY KUNZ MD PCP: MEÑO SMITH MD REPORT IS CONFIDENTIAL AND NOT TO BE RELEASED WITHOUT AUTHORIZATION
--- NOTE | 2021-02-09 13:31 | NUR ---
Spoke with Yi from [facility]. Shi has been on their service in the past and they would be able to see her for PT/OT only. RN service date is undetermined at this time. They would need an extension until Feb 17 for therapies to see. Will update the
--- NOTE | 2021-02-09 14:00 | NUR ---
Pt sitting up in chair safely w/ call light in reach and LLE elevated on 2 pillows. Pt denies any needs at this time.
--- NOTE | 2021-02-09 14:06 | NUR ---
PT ALERT, ORIENTED AND SITTING IN CHAIR WATCHING TV. PT IS PLEASANT, MISSES BEING WITH FAMILY. HAD GOOD DISCUSSION REGARDING HER CELLULITIS. PT IS SOME WHAT DISCOURAGED, HOPES TO DC SOON. GAVE G.POST, PT REQUESTED PRAYER. GAVE ENCOURAGEMENT. WILL CONTINUE TO FOLLOW
--- NOTE | 2021-02-09 16:00 | NUR ---
Pt sitting up in chair safely w/ call light in reach, legs elevated and L leg on 2 pillows, pt given ice water per request, no further needs at this time
--- NOTE | 2021-02-09 18:37 | NUR ---
2PA w/ FWW from chair to bed, pt resting safely in bed w/ call light in reach. Pt c/o pain in LLE, PRN Tylenol given per request. Pt denies any further needs at this time
--- NOTE | 2021-02-09 18:46 | NUR ---
Patient via BSC from chair and then to bed. Call light is in reach.
--- NOTE | 2021-02-09 19:22 | NUR ---
RECEIVED REPORT FROM DAY SHIFT RN. PATIENT IS RESTING IN BED WATCHING TV. PATIENT DENIES ANY NEEDS. CALL LIGHT IN REACH.
--- NOTE | 2021-02-09 21:00 | NUR ---
IN TO GT VITALS, ASSIST RN TO HOLD PTs FOOT WITH DRESSING CHANGE, ICE WATER FILLED, NO FURTHER NEEDS AT THIS TIME
--- NOTE | 2021-02-09 21:14 | NUR ---
PATIENT ASSESMENT COMPLETED. PATIENTS VITALS TAKEN AND RECORDED. INTAKE AND OUTPUT RECORDED. PATIENT RATES PAIN AT A 5/10 IN HER LLE. PATIENTS LLE DRESSING CHANGED PER ORDER. LLE ELEVATED ON X2 PILLOWS. PATIENT TOLERATED DRESSING CHANGE WELL. PATIENTS SHCEDULED MEDICATIONS GIVEN PER ORDER. PATIENTS IV FLUSHED AND FLUSHES WELL, AND IS SL PER ORDER. PATIENT DENIES ANY NEEDS. FRESH ICE WATER PROVIDED. CALL LIGHT IN REACH.
--- NOTE | 2021-02-09 22:38 | NUR ---
PATIENT ASSISTED TO THE BSC A 1PA W/FWW. PATIENT WAS ABLE TO VOID. PATIENT IS BACK IN BED RESTING. PATIENT RATES PAIN IN HER LLE AT AN 8/10. PRN PAIN MEDICATON GIVEN PER ORDER. PATIENT DENIES ANY FURTHER NEEDS. CALL LIGHT IN REACH.
--- NOTE | 2021-02-10 00:33 | NUR ---
PATIENT REPOSITIONED IN BED. PATIENT DENIES ANY FURTHER NEEDS. CALL LIGHT IN REACH.
--- NOTE | 2021-02-10 02:47 | NUR ---
PATIENT IS RESTING IN BED. PATIENT REPOSITIONED IN BED. PATIENT GIVEN PRN TYLENOL FOR 5/10 PAIN IN HER LLE. PATIENT DENIES ANY FURTHER NEEDS. CALL LIGHT IN REACH.
--- NOTE | 2021-02-10 04:06 | NUR ---
PATIENT IS RESTING IN BED WITH EYES CLOSED, RR 16. CALL LIGHT IN REACH.
--- NOTE | 2021-02-10 06:03 | NUR ---
PATIENT ASSISTED TO THE RESTROOM A 1PA W/FWW TO [facility]. PATIENT WAS ABLE TO VOID. PATIENT IS BACK IN BED RESTING. LLE ELEVATED ON X2 PILLOWS. PATIENTS VITALS TAKEN AND RECORDED. INTAKE AND OUTPUT RECORDED. FRESH ICE WATER PROVIDED. PATIENT RATES PAIN AT A 3/10. PATIENT DENIES THE NEED FOR PAIN MEDICATION AT THIS TIME. CALL LIGHT IN REACH.
--- NOTE | 2021-02-10 07:18 | NUR ---
PT AWAKE AND INTERACTIVE AT TIME OF SHIFT EXCHANGE. RESTING IN BED NEEDED ITEMS IN REACH, DENIES DISCOMFORTS OR NEEDS OF.
--- NOTE | 2021-02-10 09:20 | NUR ---
Spoke with pt and son. Pt continues with swelling and redness in lower extremity. Plan cont. for pt to dc to home with family to live with her when she is cleared for dc. Per . Pt not ready for dc today.
--- NOTE | 2021-02-10 09:26 | NUR ---
PT UP TO THE CHAIR 1PA WITH FWW. COMPLETES MORNING MEAL. DRESSING CHANGED, WELL TOLERATED. PT REPORTS NO PAIN AT REST, JUST WITH ACTIVITY AND DRESSING CHANGE. O/T IN TO WORK WITH PT AT THIS TIME.
--- NOTE | 2021-02-10 09:52 | NUR ---
RN & PTOT are in the room and helping the patient ambulate from the chair to the toilet with the commode over it to help the patient sit. BP 151/55. Map is 78. On left arm.
--- NOTE | 2021-02-10 12:07 | NUR ---
PT SITTING IN CHAIR, LLE ELEVATED AND VISITING WITH HER SON TIANNA. PT COULDN'T REMEMBER IF SHE SLEPT WELL OR NOT, BUT IN PLEASANT MOOD. HAD ENJOYABLE VISIT, GAVE ENCOURAGEMENT AND CRISTOBAL. WILL FOLLOW
--- NOTE | 2021-02-10 13:07 | NUR ---
pt continues up in the chair waiting for noon meal. dr cardenas in to see her all questions answered
--- NOTE | 2021-02-10 13:59 | NUR ---
PT REPORTING 7/10 PAIN IN FOOT. I TAB TYLENOL ADMINSTERED.
--- NOTE | 2021-02-10 14:12 | NUR ---
BP 144/42. MAP 69. Patient is in chair with call light in reach. Patient is wondering if she can have another cookie like the one she had with her lunch being on a 60 g carb diet.
--- NOTE | 2021-02-10 14:57 | NUR ---
PT HAS CONTINUED UP IN THE CHAIR THIS SHIFT. WORKING WITH P/T AT THIS TIME
--- NOTE | 2021-02-10 17:46 | NUR ---
RT COLLECTED RAPID COVID [address] REQUEST USING IN HOUSE LAB WITH NO COMPLICATIONS AT THIS TIME.
--- NOTE | 2021-02-10 17:49 | NUR ---
133/40 BP. 63 MAP. RN was notified. Patient is in chair and RN was in room.
--- NOTE | 2021-02-10 19:41 | NUR ---
PT RESTING IN BED, JUST BACK FROM BATHROOM, PT ALERT AND ORIENTED. BEDSIDE REPORT FROM MEGHAN Marmolejo RN.
--- NOTE | 2021-02-10 21:39 | NUR ---
PT RESTING IN BED ALERT, REPORTS PAIN IN FOOT AND RLQ 7/10, ULTRAM 100MG PO PRN GIVEN WITH HS MED PASS. DRESSING CHANGE COMPLETE PER ORDERS. PT TOLERATED WELL. PT REPOSITIONED IN BED AND BOOSTED UP, RLE ELEVATED ON 2 PILLOWS AND FOOT OF BED ELEVATED. PT REPORTS COMFORTABLE AND NO OTHER NEEDS AT THIS TIME.
--- NOTE | 2021-02-10 23:03 | NUR ---
PT UP TO BATHROOM, TWO PERSON TO ASSIST TO STAND, THEN STANDBY ASSIST TO AMBULATE. PT TOLERATED ACTIVITY WELL, STEADY GAIT. PT BACK TO BED AFTER VOIDING, PT THEN BOOSTED AND POSITIONED LEFT LEG ON TWO PILLOWS AND RIGHT LEG ON ONE.
--- NOTE | 2021-02-11 01:00 | NUR ---
PT RESTING IN BED EYES CLOSED RR EVEN 18 BPM, NO DISTRESS NOTED.
--- NOTE | 2021-02-11 04:38 | NUR ---
PT RESTING QUIETLY IN BED EYES CLOSED RR 18 BPM NO DISTRESS NOTED.
--- NOTE | 2021-02-11 04:48 | NUR ---
PT HAS BEEN UP TO AMBULATE TO BATHROOM TWICE THIS SHIFT, SHE WAS ADMINISTERED ULTRA 100MG PRN AT HS, DRESSING CHANGED AT HS. SHE HAS SLEPT WELL OVER SHIFT.
--- NOTE | 2021-02-11 05:45 | NUR ---
IN TO GET VITALS, PT THEN NEEDING TO VOID, 1PA FWW, PT NEEDED EXTRA HELP WITH GETTING OOB, SLOW INTO THE BATHROOM, VOIDED, BACK TO BED, 2PA BOOST, NO FURTHER NEEDS AT THIS TIME
--- NOTE | 2021-02-11 07:30 | NUR ---
Shift report recieved from MARKEL Chacon, pt resting safely w/ call light in reach, denies any needs at this time.
--- NOTE | 2021-02-11 07:45 | NUR ---
UPDATED WHITE BOARD. PT REFUSED WARM WASHCLOTH. CALL LIGHT WITHIN REACH, NO FURTHER NEEDS AT THIS TIME
[2021-02-11] MEDS ORDERED: CLINDAMYCIN HC300 MG PO (09:03)
[2021-02-11] MEDS ORDERED: SILVER SULFADIA50 GM TOP (09:07)
--- NOTE | 2021-02-11 10:00 | NUR ---
1PA w/FWW to chair, sitting up safely w/ call light in reach. Morning assesment complete, scheudled meds given, and IV abx hung and infusing per provider orders. Pt c/o 08/21 pain in LLE, PRN pain meds given per request. Pt denies any other needs at this time
--- NOTE | 2021-02-11 12:00 | NUR ---
Pt working w/ PT/OT. c/o 08/21 pain in LLE, PRN pain meds given per request. No further needs at this time
--- NOTE | 2021-02-11 14:00 | NUR ---
Pt assisted w/ dressing, IV removed, pt educated on post IV site care. Pt's son here to transport pt home.
== END 2021-02-11 14:00 | disposition home or self-care (01) | DRG 603 ==
LOC: ED 15:15 → CCU 18:37 → MS 02-04 12:00
PROVIDERS: ADMIT Internal Medicine; ATTEND Internal Medicine
DX: L03.116 Cellulitis of left lower limb (principal); N17.9 Acute kidney failure, unspecified; F03.91 Unspecified dementia, unspecified severity, with behavioral disturbance; N18.32 Chronic kidney disease, stage 3b; Z66 Do not resuscitate; E11.22 Type 2 diabetes mellitus with diabetic chronic kidney disease; Z20.822 Contact with and (suspected) exposure to COVID-19; I12.9 Hypertensive chronic kidney disease with stage 1 through stage 4 chronic kidney disease, or unspecified chronic kidney disease; N32.81 Overactive bladder; E66.9 Obesity, unspecified; G89.4 Chronic pain syndrome; I48.0 Paroxysmal atrial fibrillation; I35.0 Nonrheumatic aortic (valve) stenosis; I27.20 Pulmonary hypertension, unspecified; E78.5 Hyperlipidemia, unspecified; Z98.890 Other specified postprocedural states; Z90.49 Acquired absence of other specified parts of digestive tract; Z90.710 Acquired absence of both cervix and uterus; Z88.2 Allergy status to sulfonamides; Z88.5 Allergy status to narcotic agent; Z88.8 Allergy status to other drugs, medicaments and biological substances; Z79.899 Other long term (current) drug therapy; Z79.01 Long term (current) use of anticoagulants; Z68.31 Body mass index [BMI] 31.0-31.9, adult
CPT/HCPCS: 80048; 80053; 80202; 82553; 83036; 83605; 85025; 85610; 86140; 87040; 97110; 97113; 97163; 97165; 97530; 97535; 99284; C9803; J0610; J0690; J0696; J1815; J2405; J3370; J7060; J7121; U0003

== ENCOUNTER 2021-10-04 17:43 | Emergency (ER) | payer MEDICARE, OTHER ==
[~2021-10-04] VITALS: Ht 162.6 cm; Wt 83.5 kg
--- NOTE | ~2021-10-04 | EKG ---
[facility] [address] [facility], [place] [address] Draft EK completed, results pending confirmation PATIENT NAME: YOHANNES HERNANDEZ Electrocardiogram DATE OF : 31 PHYSICIAN: PRELIMINARY REPORT #: [id number] REPORT IS CONFIDENTIAL AND NOT TO BE RELEASED WITHOUT AUTHORIZATION
[~2021-10-04 17:43] MED LIST changes: -ACETAMINOPHEN325 M1 PO; -ACETYL L-CARNI1 EACH PO; +ALPHA LIPOIC A200 MG PO; +CLINDAMYCIN HC300 MG PO; +CULTURELLE1 EACH PO; +DIPHENHIST25 MG PO; +FENOFIBRATE48 MG PO; +HYDROCORTISONE454 GM TOP; +IRBESARTAN75 MG PO; +LOVASTATIN40 MG PO; +MAPAP500 MG PO; +METOPROLOL SUCC25 MG PO; +NYSTOP60 GM TOP; +SILVER SULFADIA50 GM TOP; +TURMERIC500 M2 PO
[2021-10-04] MEDS ORDERED: DOXYCYCLINE HY100 MG PO (19:53)
== END 2021-10-04 20:12 | disposition home or self-care (01) ==
LOC: ED 17:43
DX: L03.116 Cellulitis of left lower limb (principal); I48.91 Unspecified atrial fibrillation; E11.9 Type 2 diabetes mellitus without complications; E78.5 Hyperlipidemia, unspecified; I10 Essential (primary) hypertension; Z88.2 Allergy status to sulfonamides; Z88.5 Allergy status to narcotic agent; Z88.6 Allergy status to analgesic agent; Z79.899 Other long term (current) drug therapy
CPT/HCPCS: 36415; 71045; 80053; 83880; 85025; 93005; 93010; 99285-25; A9270

== ENCOUNTER 2021-10-20 16:03 | Emergency (ER) | payer MEDICARE, OTHER ==
[~2021-10-20] VITALS: Ht 162.6 cm; Wt 83.5 kg
[~2021-10-20 16:03] MED LIST changes: +DOXYCYCLINE HY100 MG PO
== END 2021-10-20 19:55 | disposition home or self-care (01) ==
LOC: ED 16:03
DX: S81.811A Laceration without foreign body, right lower leg, initial encounter (principal); I10 Essential (primary) hypertension; E11.9 Type 2 diabetes mellitus without complications; E78.5 Hyperlipidemia, unspecified; Z88.2 Allergy status to sulfonamides; Z88.5 Allergy status to narcotic agent; Z79.899 Other long term (current) drug therapy; Z79.01 Long term (current) use of anticoagulants; W22.8XXA Striking against or struck by other objects, initial encounter
CPT/HCPCS: 99282

== ENCOUNTER 2022-10-19 12:04 | Emergency (ER) | payer MEDICARE, OTHER ==
[~2022-10-19] VITALS: Ht 162.6 cm; Wt 83.5 kg
--- OUTSIDE RECORDS SUMMARY | ~2022-10-19 | XMS | Continuity of Care Document ---
Demographics + + + | Address | [address] | | | [place] [address] | + + + | Preferred Language | Unknown | + + + | Marital Status | | + + + | Episcopalian Affiliation | Unknown | + + + | Race | White | + + + | Ethnic Group | Not or | + + + Author + + + | Author | [facility] | + + + | Organization | [facility] | + + + | Address | [address] | | | [place] [address] | + + + | Phone | | + + + Care Team Providers + + + + | Care Bag Press Operator Name | Role | Phone | + + + + Unavailable | Unavailable | + + + + Unavailable | Unavailable | + + + + Unavailable | Unavailable | + + + + Allergies and Intolerances + + + + + + | date | description | facility | reaction | severity | + + + + + + | (no date) | codeine | [facility] | (no reaction) | (no severity) | | | [facility] | | | + + + + + + | (no date) | oxycodone | [facility] | (no reaction) | (no severity) | | | | [facility] | | | + + + + + + | (no date) | Sulfa | [facility] | (no reaction) | (no severity) | | | (Sulfonamide | | | | | | Antibiotics) | | | | + + + + + + | (no date) | codeine | [facility] | (no reaction) | (no severity) | + + + + + + | (no date) | oxycodone | [facility] | (no reaction) | (no severity) | + + + + + + Encounters No information. Functional Status No information. Immunizations + + + + | date | description | facility | + + + + | 2021-10-04 00:00 | No vaccine administered | [facility] | + + + + | 2021-10-20 00:00 | No vaccine administered | [facility] | + + + + Medications + + + + | date | description | facility | + + + + | 2021-10-04 00:00 | diazepam 2 MG Oral Tablet | [facility] | | | [Valium] | | + + + + | 2021-10-20 00:00 | diazepam 2 MG Oral Tablet | [facility] | | | [Valium] | | + + + + | 2021-10-04 00:00 | diphenhydramine | [facility] | | | hydrochloride 25 MG Oral | | | | Capsule [Diphenhist | | + + + + | 2021-10-20 00:00 | diphenhydramine | [facility] | | | hydrochloride 25 MG Oral | | | | Capsule [Diphenhist | | + + + + | 2021-10-04 00:00 | linagliptin 5 MG Oral | [facility] | | | Tablet [Tradjenta] | | + + + + | 2021-10-20 00:00 | linagliptin 5 MG Oral | [facility] | | | Tablet [Tradjenta] | | + + + + | 2021-10-04 00:00 | Turmeric extract 500 MG | [facility] | | | Oral Capsule | | + + + + | 2021-10-20 00:00 | Turmeric extract 500 MG | [facility] | | | Oral Capsule | | + + + + | 2021-10-04 00:00 | aspirin 81 MG Delayed | [facility] | | | Release Oral Tablet | | | | [Aspir-Low] | | + + + + | 2021-10-20 00:00 | aspirin 81 MG Delayed | [facility] | | | Release Oral Tablet | | | | [Aspir-Low] | | + + + + | 2021-10-04 00:00 | icosapent ethyl 1000 MG | [facility] | | | Oral Capsule [Vascepa] | | + + + + | 2021-10-20 00:00 | icosapent ethyl 1000 MG | [facility] | | | Oral Capsule [Vascepa] | | + + + + | 2012-11-10 00:00 | quetiapine 25 MG Oral | [facility] | | | Tablet [Seroquel] | | + + + + | 2021-10-04 00:00 | doxycycline hyclate 100 MG | [facility] | | | Oral Capsule | | + + + + | 2021-10-04 00:00 | allopurinol 300 MG Oral | [facility] | | | Tablet | | + + + + | 2021-10-20 00:00 | allopurinol 300 MG Oral | [facility] | | | Tablet | | + + + + | 2021-10-04 00:00 | diazepam 5 MG Oral Tablet | [facility] | + + + + | 2021-10-20 00:00 | diazepam 5 MG Oral Tablet | [facility] | + + + + | 2021-10-04 00:00 | lorazepam 1 MG Oral Tablet | [facility] | | | | | + + + + | 2021-10-20 00:00 | lorazepam 1 MG Oral Tablet | [facility] | | | | | + + + + | 2021-10-04 00:00 | irbesartan 75 MG Oral | [facility] | | | Tablet | | + + + + | 2021-10-20 00:00 | irbesartan 75 MG Oral | [facility] | | | Tablet | | + + + + | 2021-10-04 00:00 | citalopram 20 MG Oral | [facility] | | | Tablet | | + + + + | 2021-10-20 00:00 | citalopram 20 MG Oral | [facility] | | | Tablet | | + + + + | 2021-10-04 00:00 | furosemide 40 MG Oral | [facility] | | | Tablet [Lasix] | | + + + + | 2021-10-20 00:00 | furosemide 40 MG Oral | [facility] | | | Tablet [Lasix] | | + + + + | 2021-10-04 00:00 | nitroglycerin 0.4 MG | [facility] | | | Sublingual Tablet | | | | [Nitrostat] | | + + + + | 2021-10-20 00:00 | nitroglycerin 0.4 MG | [facility] | | | Sublingual Tablet | | | | [Nitrostat] | | + + + + | 2021-10-04 00:00 | acetaminophen 500 MG Oral | [facility] | | | Capsule [Mapap] | | + + + + | 2021-10-20 00:00 | acetaminophen 500 MG Oral | [facility] | | | Capsule [Mapap] | | + + + + | 2021-10-04 00:00 | cholecalciferol 0.025 MG | [facility] | | | Oral Capsule | | + + + + | 2021-10-20 00:00 | cholecalciferol 0.025 MG | [facility] | | | Oral Capsule | | + + + + | 2021-10-04 00:00 | nystatin 100 UNT/MG | [facility] | | | Topical Powder [Nystop] | | + + + + | 2021-10-20 00:00 | nystatin 100 UNT/MG | [facility] | | | Topical Powder [Nystop] | | + + + + | 2021-10-04 00:00 | vitamin B12 1 MG/ML | [facility] | | | Injectable Solution | | + + + + | 2021-10-20 00:00 | vitamin B12 1 MG/ML | [facility] | | | Injectable Solution | | + + + + | 2021-10-04 00:00 | vitamin B12 0.1 MG Oral | [facility] | | | Tablet | | + + + + | 2021-10-20 00:00 | vitamin B12 0.1 MG Oral | [facility] | | | Tablet | | + + + + | 2021-10-04 00:00 | ferrous sulfate 325 MG | [facility] | | | Oral Tablet | | + + + + | 2021-10-20 00:00 | ferrous sulfate 325 MG | [facility] | | | Oral Tablet | | + + + + | 2021-10-04 00:00 | gabapentin 300 MG Oral | [facility] | | | Capsule | | + + + + | 2021-10-20 00:00 | gabapentin 300 MG Oral | [facility] | | | Capsule | | + + + + | 2021-10-04 00:00 | hydrocortisone 25 MG/ML | [facility] | | | Topical Cream | | + + + + | 2021-10-20 00:00 | hydrocortisone 25 MG/ML | [facility] | | | Topical Cream | | + + + + | 2021-10-04 00:00 | quetiapine 25 MG Oral | [facility] | | | Tablet | | + + + + | 2021-10-20 00:00 | quetiapine 25 MG Oral | [facility] | | | Tablet | | + + + + | 2021-10-04 00:00 | valsartan 80 MG Oral | [facility] | | | Tablet [Diovan] | | + + + + | 2021-10-20 00:00 | valsartan 80 MG Oral | [facility] | | | Tablet [Diovan] | | + + + + | 2021-10-04 00:00 | duloxetine 30 MG Delayed | [facility] | | | Release Oral Capsule | | | | [Cymbalta] | | + + + + | 2021-10-20 00:00 | duloxetine 30 MG Delayed | [facility] | | | Release Oral Capsule | | | | [Cymbalta] | | + + + + | 2021-10-04 00:00 | quetiapine 50 MG Oral | [facility] | | | Tablet | | + + + + | 2021-10-20 00:00 | quetiapine 50 MG Oral | [facility] | | | Tablet | | + + + + | 2021-10-04 00:00 | potassium chloride 10 MEQ | [facility] | | | Extended Release Oral | | | | Tablet | | + + + + | 2021-10-20 00:00 | potassium chloride 10 MEQ | [facility] | | | Extended Release Oral | | | | Tablet | | + + + + | 2021-10-04 00:00 | magnesium chloride 535 MG | [facility] | | | Delayed Release Oral Tablet | | | | | | + + + + | 2021-10-20 00:00 | magnesium chloride 535 MG | [facility] | | | Delayed Release Oral Tablet | | | | | | + + + + | 2021-10-04 00:00 | 24 HR diltiazem | [facility] | | | hydrochloride 180 MG | | | | Extended Release Oral C | | + + + + | 2021-10-20 00:00 | 24 HR diltiazem | [facility] | | | hydrochloride 180 MG | | | | Extended Release Oral C | | + + + + | 2021-10-04 00:00 | tramadol hydrochloride 50 | [facility] | | | MG Oral Tablet | | + + + + | 2021-10-20 00:00 | tramadol hydrochloride 50 | [facility] | | | MG Oral Tablet | | + + + + | 2021-10-04 00:00 | rabeprazole sodium 20 MG | [facility] | | | Delayed Release Oral Tablet | | | | [Aciphe | | + + + + | 2021-10-20 00:00 | rabeprazole sodium 20 MG | [facility] | | | Delayed Release Oral Tablet | | | | [Aciphe | | + + + + | 2021-10-04 00:00 | warfarin sodium 3 MG Oral | [facility] | | | Tablet | | + + + + | 2021-10-20 00:00 | warfarin sodium 3 MG Oral | [facility] | | | Tablet | | + + + + | 2021-10-04 00:00 | amitriptyline | [facility] | | | hydrochloride 100 MG Oral | | | | Tablet | | + + + + | 2021-10-20 00:00 | amitriptyline | [facility] | | | hydrochloride 100 MG Oral | | | | Tablet | | + + + + | 2021-10-04 00:00 | colchicine 0.6 MG Oral | [facility] | | | Tablet [Colcrys] | | + + + + | 2021-10-20 00:00 | colchicine 0.6 MG Oral | [facility] | | | Tablet [Colcrys] | | + + + + | 2021-10-04 00:00 | Osmotic 24 HR metformin | [facility] | | | hydrochloride 500 MG | | | | Extended Releas | | + + + + | 2021-10-20 00:00 | Osmotic 24 HR metformin | [facility] | | | hydrochloride 500 MG | | | | Extended Releas | | + + + + | 2021-10-04 00:00 | oxybutynin chloride 5 MG | [facility] | | | Oral Tablet | | + + + + | 2021-10-20 00:00 | oxybutynin chloride 5 MG | [facility] | | | Oral Tablet | | + + + + | 2021-10-04 00:00 | 24 HR metoprolol succinate | [facility] | | | 25 MG Extended Release | | | | Oral Table | | + + + + | 2021-10-20 00:00 | 24 HR metoprolol succinate | [facility] | | | 25 MG Extended Release | | | | Oral Table | | + + + + | 2021-10-04 00:00 | Lacticaseibacillus | [facility] | | | rhamnosus GG [id number] | | | | UNT Oral Capsule | | + + + + | 2021-10-20 00:00 | Lacticaseibacillus | [facility] | | | rhamnosus GG [id number] | | | | UNT Oral Capsule | | + + + + | 2021-10-04 00:00 | ascorbic acid 113 MG / | [facility] | | | beta carotene 7160 MG / | | | | cuprous oxide | | + + + + | 2021-10-20 00:00 | ascorbic acid 113 MG / | [facility] | | | beta carotene 7160 MG / | | | | cuprous oxide | | + + + + | 2021-10-04 00:00 | hydromorphone | [facility] | | | hydrochloride 2 MG Oral | | | | Tablet | | + + + + | 2021-10-20 00:00 | hydromorphone | [facility] | | | hydrochloride 2 MG Oral | | | | Tablet | | + + + + | 2021-10-04 00:00 | levothyroxine sodium 0.05 | [facility] | | | MG Oral Tablet | | + + + + | 2021-10-20 00:00 | levothyroxine sodium 0.05 | [facility] | | | MG Oral Tablet | | + + + + | 2021-10-04 00:00 | donepezil hydrochloride 10 | [facility] | | | MG Oral Tablet [Aricept] | | + + + + | 2021-10-20 00:00 | donepezil hydrochloride 10 | [facility] | | | MG Oral Tablet [Aricept] | | + + + + Problems + + + + | date | description | facility | + + + + | 2013-11-29 00:00 | Colitis, Clostridium | [facility] | | | difficile | | + + + + | 2013-11-29 00:00 | Clostridium difficile | [facility] | | | enterocolitis | | + + + + | 2013-12-24 00:00 | Nausea | [facility] | + + + + | 2013-12-24 00:00 | Medication adverse effect | [facility] | + + + + | 2018-03-02 00:00 | Skin tear of left forearm | [facility] | | | without complication | | + + + + | 2018-05-17 00:00 | Confusion | [facility] | + + + + | 2018-05-17 00:00 | Bilateral otitis media | [facility] | + + + + | 2021-02-03 00:00 | Cellulitis of left lower | [facility] | | | leg | | + + + + | 2021-10-04 00:00 | Atrial fibrillation with | [facility] | | | slow ventricular response | | + + + + | 2021-10-20 00:00 | Skin tear of right lower | [facility] | | | leg without complication | | + + + + | 2022-08-01 09:30 | UNSPECIFIED ATRIAL FLUTTER | [facility] | | | | | + + + + | 2022-08-01 09:30 | ENCOUNTER FOR THERAPEUTIC | [facility] | | | DRUG LEVEL MONITORING | | + + + + | 2022-08-01 09:30 | SKILLED NURSING (CURRENT) USE OF | [facility] | | | ANTICOAGULANTS | | + + + + | 2022-08-29 09:35 | UNSPECIFIED ATRIAL FLUTTER | [facility] | | | | | + + + + | 2022-08-29 09:35 | ENCOUNTER FOR THERAPEUTIC | [facility] | | | DRUG LEVEL MONITORING | | + + + + | 2022-08-29 09:35 | HIDE OR SKIN BUFFER (CURRENT) USE OF | [facility] | | | ANTICOAGULANTS | | + + + + | 2022-09-26 09:00 | UNSPECIFIED ATRIAL | [facility] | | | FIBRILLATION | | + + + + | 2022-09-26 09:00 | ENCOUNTER FOR THERAPEUTIC | [facility] | | | DRUG LEVEL MONITORING | | + + + + | 2022-09-26 09:00 | SKILLED NURSING (CURRENT) USE OF | [facility] | | | ANTICOAGULANTS | | + + + + Procedures No information. Results/Labs +--------+--------+ +---------+--------+---------+ | test | date | facility | value | unit | notes | +--------+--------+ +---------+--------+---------+ + + | Result panel 1 | + + + + + +-------+ + + | Blood | 2021-10-04 | [facility] | 6.3 | (missing) | (missing) | | leukocytes | 18:27 | [facility] | | | | | automated | | Hospital | | | | | count | | | | | | | (number/volu | | | | | | | me) | | | | | | + + + +-------+ + + + + | Result panel 2 | + + + + + +--------+ + + | Automated | 2021-10-04 | [facility] | 64.8 | (missing) | (missing) | | blood | 18:27 | [facility] | | | | | neutrophil | | Hospital | | | | | count as | | | | | | | percentage | | | | | | | of total | | | | | | | leukocytes | | | | | | + + + +--------+ + + + + | Result panel 3 | + + + + + +--------+ + + | Automated | 2021-10-04 | [facility] | 23.9 | (missing) | (missing) | | blood | 18:27 | [facility] | | | | | lymphocyte | | Hospital | | | | | count as | | | | | | | percentage | | | | | | | ot total | | | | | | | leukocytes | | | | | | + + + +--------+ + + + + | Result panel 4 | + + + + + +-------+ + + | Automated | 2021-10-04 | [facility] | 6.2 | (missing) | (missing) | | blood | 18:27 | [facility] | | | | | monocyte | | Hospital | | | | | count as | | | | | | | percentage | | | | | | | of total | | | | | | | leukocytes | | | | | | + + + +-------+ + + + + | Result panel 5 | + + + + + +-------+ + + | Automated | 2021-10-04 | [facility] | 4.5 | (missing) | (missing) | | blood | 18:27 | [facility] | | | | | eosinophil | | Hospital | | | | | count as | | | | | | | percentage | | | | | | | of total | | | | | | | leukocytes | | | | | | + + + +-------+ + + + + | Result panel 6 | + + + + + +-------+ + + | Automated | 2021-10-04 | [facility] | 0.6 | (missing) | (missing) | | blood | 18:27 | [facility] | | | | | basophil | | Hospital | | | | | count as | | | | | | | percentage | | | | | | | of total | | | | | | | leukocytes | | | | | | + + + +-------+ + + + + | Result panel 7 | + + + + + +-------+ + + | Serum or | 2021-10-04 | [facility] | 137 | (missing) | (missing) | | plasma | 18:27 | [facility] | | | | | glucose | | Hospital | | | | | measurement | | | | | | | (mass/volume | | | | | | | ) | | | | | | + + + +-------+ + + + + | Result panel 8 | + + + + + +------+ + + | Serum or | 2021-10-04 | [facility] | 34 | (missing) | (missing) | | plasma urea | 18:27 | [facility] | | | | | nitrogen | | Hospital | | | | | measurement | | | | | | | (mass/volume | | | | | | | ) | | | | | | + + + +------+ + + + + | Result panel 9 | + + + + + +--------+ + + | Serum or | 2021-10-04 | [facility] | 1.33 | (missing) | (missing) | | plasma | 18:27 | [facility] | | | | | creatinine | | Hospital | | | | | measurement | | | | | | | (mass/volume | | | | | | | ) | | | | | | + + + +--------+ + + + + | Result panel 10 | + + + + + +------+ + + | Glomerular | 2021-10-04 | [facility] | 39 | (missing) | (missing) | | filtration | 18:27 | [facility] | | | | | rate/1.73 sq | | Hospital | | | | | M.predicted | | | | | | | [Volume | | | | | | | Rate/Area] | | | | | | | inSerum, | | | | | | | Plasma or | | | | | | | Blood by | | | | | | | Creatinine-b | | | | | | | ased formula | | | | | | | (CKD-EPI | | | | | | | 2020) | | | | | | + + + +------+ + + + + | Result panel 11 | + + + + + +---------+ + + | Serum or | 2021-10-04 | [facility] | 25.56 | (missing) | (missing) | | plasma urea | 18:27 | [facility] | | | | | nitrogen/cre | | Hospital | | | | | atinine mass | | | | | | | ratio | | | | | | + + + +---------+ + + + + | Result panel 12 | + + + + + +--------+ + + | Blood | 2021-10-04 | [facility] | 3.99 | (missing) | (missing) | | erythrocytes | 18:27 | [facility] | | | | | automated | | Hospital | | | | | count | | | | | | | (number/volu | | | | | | | me) | | | | | | + + + +--------+ + + + + | Result panel 13 | + + + + + +-------+ + + | Serum or | 2021-10-04 | [facility] | 137 | (missing) | (missing) | | plasma | 18:27 | [facility] | | | | | sodium | | Hospital | | | | | measurement | | | | | | | (moles/volum | | | | | | | e) | | | | | | + + + +-------+ + + + + | Result panel 14 | + + + + + +-------+ + + | Serum or | 2021-10-04 | [facility] | 4.7 | (missing) | (missing) | | plasma | 18:27 | [facility] | | | | | potassium | | Hospital | | | | | measurement | | | | | | | (moles/volum | | | | | | | e) | | | | | | + + + +-------+ + + + + | Result panel 15 | + + + + + +-------+ + + | Serum or | 2021-10-04 | [facility] | 101 | (missing) | (missing) | | plasma | 18:27 | [facility] | | | | | chloride | | Hospital | | | | | measurement | | | | | | | (moles/volum | | | | | | | e) | | | | | | + + + +-------+ + + + + | Result panel 16 | + + + + + +------+ + + | Serum or | 2021-10-04 | [facility] | 28 | (missing) | (missing) | | plasma | 18:27 | [facility] | | | | | carbon | | Hospital | | | | | dioxide, | | | | | | | total | | | | | | | measurement | | | | | | | (moles/volum | | | | | | | e) | | | | | | + + + +------+ + + + + | Result panel 17 | + + + + + +--------+ + + | Serum or | 2021-10-04 | [facility] | 12.7 | (missing) | (missing) | | plasma anion | 18:27 | [facility] | | | | | gap 4 | | Hospital | | | | + + + +--------+ + + + + | Result panel 18 | + + + + + +-------+ + + | Serum or | 2021-10-04 | [facility] | 9.3 | (missing) | (missing) | | plasma | 18:27 | [facility] | | | | | calcium | | Hospital | | | | | measurement | | | | | | | (mass/volume | | | | | | | ) | | | | | | + + + +-------+ + + + + | Result panel 19 | + + + + + +-------+ + + | Serum or | 2021-10-04 | [facility] | 7.0 | (missing) | (missing) | | plasma | 18:27 | [facility] | | | | | protein | | Hospital | | | | | measurement | | | | | | | (mass/volume | | | | | | | ) | | | | | | + + + +-------+ + + + + | Result panel 20 | + + + + + +-------+ + + | Serum or | 2021-10-04 | [facility] | 3.4 | (missing) | (missing) | | plasma | 18:27 | [facility] | | | | | albumin | | Hospital | | | | | measurement | | | | | | | (mass/volume | | | | | | | ) | | | | | | + + + +-------+ + + + + | Result panel 21 | + + + + + +-------+ + + | Serum | 2021-10-04 | [facility] | 3.6 | (missing) | (missing) | | globulin | 18:27 | [facility] | | | | | measurement | | Hospital | | | | | (mass/volume | | | | | | | ) | | | | | | + + + +-------+ + + + + | Result panel 22 | + + + + + +--------+ + + | Serum or | 2021-10-04 | [facility] | 0.94 | (missing) | (missing) | | plasma | 18:27 | [facility] | | | | | albumin/glob | | Hospital | | | | | ulin mass | | | | | | | ratio | | | | | | + + + +--------+ + + + + | Result panel 23 | + + + + + +--------+ + + | Blood | 2021-10-04 | [facility] | 12.2 | (missing) | (missing) | | hemoglobin | 18:27 | [facility] | | | | | measurement | | Hospital | | | | | (mass/volume | | | | | | | ) | | | | | | + + + +--------+ + + + + | Result panel 24 | + + + + + +-------+ + + | Serum or | 2021-10-04 | [facility] | 0.3 | (missing) | (missing) | | plasma total | 18:27 | [facility] | | | | | bilirubin | | Hospital | | | | | measurement | | | | | | | (mass/volume | | | | | | | ) | | | | | | + + + +-------+ + + + + | Result panel 25 | + + + + + +------+ + + | Serum or | 2021-10-04 | [facility] | 15 | (missing) | (missing) | | plasma | 18:27 | [facility] | | | | | aspartate | | Hospital | | | | | aminotransfe | | | | | | | rase | | | | | | | measurement | | | | | | | (enzymatic | | | | | | | activity/vol | | | | | | | ume) | | | | | | + + + +------+ + + + + | Result panel 26 | + + + + + +------+ + + | Serum or | 2021-10-04 | [facility] | 20 | (missing) | (missing) | | plasma | 18:27 | [facility] | | | | | alanine | | Hospital | | | | | aminotransfe | | | | | | | rase | | | | | | | measurement | | | | | | | (enzymatic | | | | | | | activity/vol | | | | | | | ume) | | | | | | + + + +------+ + + + + | Result panel 27 | + + + + + +------+ + + | Serum or | 2021-10-04 | [facility] | 64 | (missing) | (missing) | | plasma | 18:27 | [facility] | | | | | alkaline | | Hospital | | | | | phosphatase | | | | | | | measurement | | | | | | | (enzymatic | | | | | | | activity/vol | | | | | | | ume) | | | | | | + + + +------+ + + + + | Result panel 28 | + + + + + +--------+ + + | Automated | 2021-10-04 | [facility] | 37.2 | (missing) | (missing) | | blood | 18:27 | [facility] | | | | | hematocrit | | Hospital | | | | + + + +--------+ + + + + | Result panel 29 | + + + + + +--------+ + + | Automated | 2021-10-04 | [facility] | 93.3 | (missing) | (missing) | | erythrocyte | 18:27 | [facility] | | | | | mean | | Hospital | | | | | corpuscular | | | | | | | volume | | | | | | + + + +--------+ + + + + | Result panel 30 | + + + + + +--------+ + + | Automated | 2021-10-04 | [facility] | 30.7 | (missing) | (missing) | | erythrocyte | 18:27 | [facility] | | | | | mean | | Hospital | | | | | corpuscular | | | | | | | hemoglobin | | | | | | | (mass per | | | | | | | erythrocyte) | | | | | | | | | | | | | + + + +--------+ + + + + | Result panel 31 | + + + + + +--------+ + + | Automated | 2021-10-04 | [facility] | 32.9 | (missing) | (missing) | | erythrocyte | 18:27 | [facility] | | | | | mean | | Hospital | | | | | corpuscular | | | | | | | hemoglobin | | | | | | | concentratio | | | | | | | n | | | | | | | measurement | | | | | | | (mass/volume | | | | | | | ) | | | | | | + + + +--------+ + + + + | Result panel 32 | + + + + + +--------+ + + | Automated | 2021-10-04 | [facility] | 15.7 | (missing) | (missing) | | erythrocyte | 18:27 | [facility] | | | | | distribution | | [facility] | | | | | width | | | | | | + + + +--------+ + + + + | Result panel 33 | + + + + + +-------+ + + | Automated | 2021-10-04 | [facility] | 182 | (missing) | (missing) | | blood | 18:27 | [facility] | | | | platelet | | [facility] | | | | | count | | | | | | | (count/volum | | | | | | | e) | | | | | | + + + +-------+ + + + + | Serum or plasma alanine aminotransferase measurement (enzymatic activity/volume) | + + + + + +------+ + + | Serum or | 2021-10-04 | [facility] | 20 | (missing) | (missing) | | plasma | 18:27 | [facility] | | | | | alanine | | [facility] | | | | | aminotransfe | | | | | | | rase | | | | | | | measurement | | | | | | | (enzymatic | | | | | | | activity/vol | | | | | | | ume) | | | | | | + + + +------+ + + + + | Serum or plasma albumin measurement (mass/volume) | + + + + + +-------+ + + | Serum or | 2021-10-04 | [facility] | 3.4 | (missing) | (missing) | | plasma | 18:27 | [facility] | | | | | albumin | | [facility] | | | | | measurement | | | | | | | (mass/volume | | | | | | | ) | | | | | | + + + +-------+ + + + + | Serum or plasma albumin/globulin mass ratio | + + + + + +--------+ + + | Serum or | 2021-10-04 | [facility] | 0.94 | (missing) | (missing) | | plasma | 18:27 | [facility] | | | | | albumin/glob | | Hospital | | | | | ulin mass | | | | | | | ratio | | | | | | + + + +--------+ + + + + | Serum or plasma calcium measurement (mass/volume) | + + + + + +-------+ + + | Serum or | 2021-10-04 | [facility] | 9.3 | (missing) | (missing) | | plasma | 18:27 | [facility] | | | | | calcium | | [facility] | | | | | measurement | | | | | | | (mass/volume | | | | | | | ) | | | | | | + + + +-------+ + + + + | Serum or plasma anion gap 4 | + + + + + +--------+ + + | Serum or | 2021-10-04 | [facility] | 12.7 | (missing) | (missing) | | plasma anion | 18:27 | [facility] | | | | | gap 4 | | Hospital | | | | + + + +--------+ + + + + | Serum or plasma aspartate aminotransferase measurement (enzymatic activity/volume) | + + + + + +------+ + + | Serum or | 2021-10-04 | [facility] | 15 | (missing) | (missing) | | plasma | 18:27 | [facility] | | | | | aspartate | | Hospital | | | | | aminotransfe | | | | | | | rase | | | | | | | measurement | | | | | | | (enzymatic | | | | | | | activity/vol | | | | | | | ume) | | | | | | + + + +------+ + + + + | Serum or plasma total bilirubin measurement (mass/volume) | + + + + + +-------+ + + | Serum or | 2021-10-04 | [facility] | 0.3 | (missing) | (missing) | | plasma total | 18:27 | [facility] | | | | | bilirubin | | Hospital | | | | | measurement | | | | | | | (mass/volume | | | | | | | ) | | | | | | + + + +-------+ + + + + | Serum or plasma carbon dioxide, total measurement (moles/volume) | + + + + + +------+ + + | Serum or | 2021-10-04 | [facility] | 28 | (missing) | (missing) | | plasma | 18:27 | [facility] | | | | | carbon | | Hospital | | | | | dioxide, | | | | | | | total | | | | | | | measurement | | | | | | | (moles/volum | | | | | | | e) | | | | | | + + + +------+ + + + + | Serum or plasma chloride measurement (moles/volume) | + + + + + +-------+ + + | Serum or | 2021-10-04 | [facility] | 101 | (missing) | (missing) | | plasma | 18:27 | [facility] | | | | | chloride | | Hospital | | | | | measurement | | | | | | | (moles/volum | | | | | | | e) | | | | | | + + + +-------+ + + + + | Automated erythrocyte distribution width | + + + + + +--------+ + + | Automated | 2021-10-04 | [facility] | 15.7 | (missing) | (missing) | | erythrocyte | 18:27 | [facility] | | | | | distribution | | Hospital | | | | | width | | | | | | + + + +--------+ + + + + | Serum or plasma creatinine measurement (mass/volume) | + + + + + +--------+ + + | Serum or | 2021-10-04 | [facility] | 1.33 | (missing) | (missing) | | plasma | 18:27 | [facility] | | | | | creatinine | | Hospital | | | | | measurement | | | | | | | (mass/volume | | | | | | | ) | | | | | | + + + +--------+ + + + + | Serum globulin measurement (mass/volume) | + + + + + +-------+ + + | Serum | 2021-10-04 | [facility] | 3.6 | (missing) | (missing) | | globulin | 18:27 | [facility] | | | | | measurement | | Hospital | | | | | (mass/volume | | | | | | | ) | | | | | | + + + +-------+ + + + + | Serum or plasma glucose measurement (mass/volume) | + + + + + +-------+ + + | Serum or | 2021-10-04 | [facility] | 137 | (missing) | (missing) | | plasma | 18:27 | [facility] | | | | | glucose | | [facility] | | | | | measurement | | | | | | | (mass/volume | | | | | | | ) | | | | | | + + + +-------+ + + + + | Serum or plasma potassium measurement (moles/volume) | + + + + + +-------+ + + | Serum or | 2021-10-04 | [facility] | 4.7 | (missing) | (missing) | | plasma | 18:27 | [facility] | | | | | potassium | | [facility] | | | | | measurement | | | | | | | (moles/volum | | | | | | | e) | | | | | | + + + +-------+ + + + + | Serum or plasma protein measurement (mass/volume) | + + + + + +-------+ + + | Serum or | 2021-10-04 | [facility] | 7.0 | (missing) | (missing) | | plasma | 18:27 | [facility] | | | | | protein | | Hospital | | | | | measurement | | | | | | | (mass/volume | | | | | | | ) | | | | | | + + + +-------+ + + + + | Serum or plasma sodium measurement (moles/volume) | + + + + + +-------+ + + | Serum or | 2021-10-04 | [facility] | 137 | (missing) | (missing) | | plasma | 18:27 | [facility] | | | | | sodium | | Hospital | | | | | measurement | | | | | | | (moles/volum | | | | | | | e) | | | | | | + + + +-------+ + + + + | Serum or plasma urea nitrogen measurement (mass/volume) | + + + + + +------+ + + | Serum or | 2021-10-04 | [facility] | 34 | (missing) | (missing) | | plasma urea | 18:27 | [facility] | | | | | nitrogen | | [facility] | | | | | measurement | | | | | | | (mass/volume | | | | | | | ) | | | | | | + + + +------+ + + + + | Serum or plasma urea nitrogen/creatinine mass ratio | + + + + + +---------+ + + | Serum or | 2021-10-04 | [facility] | 25.56 | (missing) | (missing) | | plasma urea | 18:27 | [facility] | | | | | nitrogen/cre | | Hospital | | | | | atinine mass | | | | | | | ratio | | | | | | + + + +---------+ + + + + | Automated blood monocyte count as percentage of total leukocytes | + + + + + +-------+ + + | Automated | 2021-10-04 | [facility] | 6.2 | (missing) | (missing) | | blood | 18:27 | [facility] | | | | | monocyte | | Hospital | | | | | count as | | | | | | | percentage | | | | | | | of total | | | | | | | leukocytes | | | | | | + + + +-------+ + + + + | Blood leukocytes automated count (number/volume) | + + + + + +-------+ + + | Blood | 2021-10-04 | [facility] | 6.3 | (missing) | (missing) | | leukocytes | 18:27 | [facility] | | | | | automated | | [facility] | | | | | count | | | | | | | (number/volu | | | | | | | me) | | | | | | + + + +-------+ + + + + | Serum or plasma alkaline phosphatase measurement (enzymatic activity/volume) | + + + + + +------+ + + | Serum or | 2021-10-04 | [facility] | 64 | (missing) | (missing) | | plasma | 18:27 | [facility] | | | | | alkaline | | [facility] | | | | | phosphatase | | | | | | | measurement | | | | | | | (enzymatic | | | | | | | activity/vol | | | | | | | ume) | | | | | | + + + +------+ + + + + | Automated blood basophil count as percentage of total leukocytes | + + + + + +-------+ + + | Automated | 2021-10-04 | [facility] | 0.6 | (missing) | (missing) | | blood | 18:27 | [facility] | | | | | basophil | | [facility] | | | | | count as | | | | | | | percentage | | | | | | | of total | | | | | | | leukocytes | | | | | | + + + +-------+ + + + + | Automated blood eosinophil count as percentage of total leukocytes | + + + + + +-------+ + + | Automated | 2021-10-04 | [facility] | 4.5 | (missing) | (missing) | | blood | 18:27 | [facility] | | | | | eosinophil | | Hospital | | | | | count as | | | | | | | percentage | | | | | | | of total | | | | | | | leukocytes | | | | | | + + + +-------+ + + + + | Blood hemoglobin measurement (mass/volume) | + + + + + +--------+ + + | Blood | 2021-10-04 | [facility] | 12.2 | (missing) | (missing) | | hemoglobin | 18:27 | [facility] | | | | | measurement | | [facility] | | | | | (mass/volume | | | | | | | ) | | | | | | + + + +--------+ + + + + | Automated blood hematocrit | + + + + + +--------+ + + | Automated | 2021-10-04 | [facility] | 37.2 | (missing) | (missing) | | blood | 18:27 | [facility] | | | | | hematocrit | | [facility] | | | | + + + +--------+ + + + + | Automated blood lymphocyte count as percentage ot total leukocytes | + + + + + +--------+ + + | Automated | 2021-10-04 | [facility] | 23.9 | (missing) | (missing) | | blood | 18:27 | [facility] | | | | | lymphocyte | | Hospital | | | | | count as | | | | | | | percentage | | | | | | | ot total | | | | | | | leukocytes | | | | | | + + + +--------+ + + + + | Automated blood neutrophil count as percentage of total leukocytes | + + + + + +--------+ + + | Automated | 2021-10-04 | [facility] | 64.8 | (missing) | (missing) | | blood | 18:27 | [facility] | | | | | neutrophil | | Hospital | | | | | count as | | | | | | | percentage | | | | | | | of total | | | | | | | leukocytes | | | | | | + + + +--------+ + + + + | Automated blood platelet count (count/volume) | + + + + + +-------+ + + | Automated | 2021-10-04 | [facility] | 182 | (missing) | (missing) | | blood | 18:27 | [facility] | | | | | platelet | | [facility] | | | | | count | | | | | | | (count/volum | | | | | | | e) | | | | | | + + + +-------+ + + + + | Automated erythrocyte mean corpuscular hemoglobin (mass per erythrocyte) | + + + + + +--------+ + + | Automated | 2021-10-04 | [facility] | 30.7 | (missing) | (missing) | | erythrocyte | 18:27 | [facility] | | | | | mean | | Hospital | | | | | corpuscular | | | | | | | hemoglobin | | | | | | | (mass per | | | | | | | erythrocyte) | | | | | | | | | | | | | + + + +--------+ + + + + | Automated erythrocyte mean corpuscular hemoglobin concentration measurement | | (mass/volume) | + + + + + +--------+ + + | Automated | 2021-10-04 | [facility] | 32.9 | (missing) | (missing) | | erythrocyte | 18:27 | [facility] | | | | | mean | | Hospital | | | | | corpuscular | | | | | | | hemoglobin | | | | | | | concentratio | | | | | | | n | | | | | | | measurement | | | | | | | (mass/volume | | | | | | | ) | | | | | | + + + +--------+ + + + + | Automated erythrocyte mean corpuscular volume | + + + + + +--------+ + + | Automated | 2021-10-04 | [facility] | 93.3 | (missing) | (missing) | | erythrocyte | 18:27 | [facility] | | | | | mean | | Hospital | | | | | corpuscular | | | | | | | volume | | | | | | + + + +--------+ + + + + | Blood erythrocytes automated count (number/volume) | + + + + + +--------+ + + | Blood | 2021-10-04 | [facility] | 3.99 | (missing) | (missing) | | erythrocytes | 18:27 | [facility] | | | | | automated | | Hospital | | | | | count | | | | | | | (number/volu | | | | | | | me) | | | | | | + + + +--------+ + + + + | Glomerular filtration rate/1.73 sq M.predicted [Volume Rate/Area] inSerum, Plasma or | | Blood by Creatinine-based formula (CKD-EPI 2020) | + + + + + +------+ + + | Glomerular | 2021-10-04 | [facility] | 39 | (missing) | (missing) | | filtration | 18:27 | [facility] | | | | | rate/1.73 sq | | Hospital | | | | | M.predicted | | | | | | | [Volume | | | | | | | Rate/Area] | | | | | | | inSerum, | | | | | | | Plasma or | | | | | | | Blood by | | | | | | | Creatinine-b | | | | | | | ased formula | | | | | | | (CKD-EPI | | | | | | | 2020) | | | | | | + + + +------+ + + Social History + + + + | date | description | facility | + + + + | 2021-10-04 00:00 | Never smoker | [facility] | + + + + | 2021-10-20 00:00 | Never smoker | [facility] | + + + + Vital Signs No information."
--- OUTSIDE RECORDS SUMMARY | ~2022-10-19 | XMS | Continuity of Care Document ---
Demographics + + + | Address | [address] | | | [place] [address] | + + + | Preferred Language | Unknown | + + + | Marital Status | | + + + | Latter-Day Affiliation | Unknown | + + + | Race | White | + + + | Ethnic Group | Not or | + + + Author + + + | Author | [facility] | + + + | Organization | [facility] | + + + | Address | [address] | | | [place] [address] | + + + | Phone | | + + + Care Team Providers + + + + | Care Swim Coach Name | Role | Phone | + [...] 2021-10-04 00:00 | No vaccine administered | [facility] | + + + + | 2021-10-20 00:00 | No vaccine administered | [facility] | + + + + Medications + + + + | date | description | facility | + + + + | 2021-10-04 00:00 | diazepam 2 MG Oral Tablet | [facility] | | | [Valium] | | + + + + | 2021-10-20 00:00 | diazepam 2 MG Oral Tablet | [facility] | | | [Valium] | | + + + + | 2021-10-04 00:00 | diphenhydramine | [facility] | | | hydrochloride 25 MG Oral | | | | Capsule [Diphenhist | | + + + + | 2021-10-20 00:00 | diphenhydramine | [facility] | | | hydrochloride 25 MG Oral | | | | Capsule [Diphenhist | | + + + + | 2021-10-04 00:00 | linagliptin 5 MG Oral | [facility] | | | Tablet [Tradjenta] | | + + + + | 2021-10-20 00:00 | linagliptin 5 MG Oral | [facility] | | | Tablet [Tradjenta] | | + + + + | 2021-10-04 00:00 | Turmeric extract 500 MG | [facility] | | | Oral Capsule | | + + + + | 2021-10-20 00:00 | Turmeric extract 500 MG | [facility] | | | Oral Capsule | | + + + + | 2021-10-04 00:00 | aspirin 81 MG Delayed | [facility] | | | Release Oral Tablet | | | | [Aspir-Low] | | + + + + | 2021-10-20 00:00 | aspirin 81 MG Delayed | [facility] | | | Release Oral Tablet | | | | [Aspir-Low] | | + + + + | 2021-10-04 00:00 | icosapent ethyl 1000 MG | [facility] | | | Oral Capsule [Vascepa] | | + + + + | 2021-10-20 00:00 | icosapent ethyl 1000 MG | [facility] | | | Oral Capsule [Vascepa] | | + + + + | 2012-11-10 00:00 | quetiapine 25 MG Oral | [facility] | | | Tablet [Seroquel] | | + + + + | 2021-10-04 00:00 | doxycycline hyclate 100 MG | [facility] | | | Oral Capsule | | + + + + | 2021-10-04 00:00 | allopurinol 300 MG Oral | [facility] | | | Tablet | | + + + + | 2021-10-20 00:00 | allopurinol 300 MG Oral | [facility] | | | Tablet | | + + + + | 2021-10-04 00:00 | diazepam 5 MG Oral Tablet | [facility] | + + + + | 2021-10-20 00:00 | diazepam 5 MG Oral Tablet | [facility] | + + + + | 2021-10-04 00:00 | lorazepam 1 MG Oral Tablet | [facility] | | | | | + + + + | 2021-10-20 00:00 | lorazepam 1 MG Oral Tablet | [facility] | | | | | + + + + | 2021-10-04 00:00 | irbesartan 75 MG Oral | [facility] | | | Tablet | | + + + + | 2021-10-20 00:00 | irbesartan 75 MG Oral | [facility] | | | Tablet | | + + + + | 2021-10-04 00:00 | citalopram 20 MG Oral | [facility] | | | Tablet | | + + + + | 2021-10-20 00:00 | citalopram 20 MG Oral | [facility] | | | Tablet | | + + + + | 2021-10-04 00:00 | furosemide 40 MG Oral | [facility] | | | Tablet [Lasix] | | + + + + | 2021-10-20 00:00 | furosemide 40 MG Oral | [facility] | | | Tablet [Lasix] | | + + + + | 2021-10-04 00:00 | nitroglycerin 0.4 MG | [facility] | | | Sublingual Tablet | | | | [Nitrostat] | | + + + + | 2021-10-20 00:00 | nitroglycerin 0.4 MG | [facility] | | | Sublingual Tablet | | | | [Nitrostat] | | + + + + | 2021-10-04 00:00 | acetaminophen 500 MG Oral | [facility] | | | Capsule [Mapap] | | + + + + | 2021-10-20 00:00 | acetaminophen 500 MG Oral | [facility] | | | Capsule [Mapap] | | + + + + | 2021-10-04 00:00 | cholecalciferol 0.025 MG | [facility] | | | Oral Capsule | | + + + + | 2021-10-20 00:00 | cholecalciferol 0.025 MG | [facility] | | | Oral Capsule | | + + + + | 2021-10-04 00:00 | nystatin 100 UNT/MG | [facility] | | | Topical Powder [Nystop] | | + + + + | 2021-10-20 00:00 | nystatin 100 UNT/MG | [facility] | | | Topical Powder [Nystop] | | + + + + | 2021-10-04 00:00 | vitamin B12 1 MG/ML | [facility] | | | Injectable Solution | | + + + + | 2021-10-20 00:00 | vitamin B12 1 MG/ML | [facility] | | | Injectable Solution | | + + + + | 2021-10-04 00:00 | vitamin B12 0.1 MG Oral | [facility] | | | Tablet | | + + + + | 2021-10-20 00:00 | vitamin B12 0.1 MG Oral | [facility] | | | Tablet | | + + + + | 2021-10-04 00:00 | ferrous sulfate 325 MG | [facility] | | | Oral Tablet | | + + + + | 2021-10-20 00:00 | ferrous sulfate 325 MG | [facility] | | | Oral Tablet | | + + + + | 2021-10-04 00:00 | gabapentin 300 MG Oral | [facility] | | | Capsule | | + + + + | 2021-10-20 00:00 | gabapentin 300 MG Oral | [facility] | | | Capsule | | + + + + | 2021-10-04 00:00 | hydrocortisone 25 MG/ML | [facility] | | | Topical Cream | | + + + + | 2021-10-20 00:00 | hydrocortisone 25 MG/ML | [facility] | | | Topical Cream | | + + + + | 2021-10-04 00:00 | quetiapine 25 MG Oral | [facility] | | | Tablet | | + + + + | 2021-10-20 00:00 | quetiapine 25 MG Oral | [facility] | | | Tablet | | + + + + | 2021-10-04 00:00 | valsartan 80 MG Oral | [facility] | | | Tablet [Diovan] | | + + + + | 2021-10-20 00:00 | valsartan 80 MG Oral | [facility] | | | Tablet [Diovan] | | + + + + | 2021-10-04 00:00 | duloxetine 30 MG Delayed | [facility] | | | Release Oral Capsule | | | | [Cymbalta] | | + + + + | 2021-10-20 00:00 | duloxetine 30 MG Delayed | [facility] | | | Release Oral Capsule | | | | [Cymbalta] | | + + + + | 2021-10-04 00:00 | quetiapine 50 MG Oral | [facility] | | | Tablet | | + + + + | 2021-10-20 00:00 | quetiapine 50 MG Oral | [facility] | | | Tablet | | + + + + | 2021-10-04 00:00 | potassium chloride 10 MEQ | [facility] | | | Extended Release Oral | | | | Tablet | | + + + + | 2021-10-20 00:00 | potassium chloride 10 MEQ | [facility] | | | Extended Release Oral | | | | Tablet | | + + + + | 2021-10-04 00:00 | magnesium chloride 535 MG | [facility] | | | Delayed Release Oral Tablet | | | | | | + + + + | 2021-10-20 00:00 | magnesium chloride 535 MG | [facility] | | | Delayed Release Oral Tablet | | | | | | + + + + | 2021-10-04 00:00 | 24 HR diltiazem | [facility] | | | hydrochloride 180 MG | | | | Extended Release Oral C | | + + + + | 2021-10-20 00:00 | 24 HR diltiazem | [facility] | | | hydrochloride 180 MG | | | | Extended Release Oral C | | + + + + | 2021-10-04 00:00 | tramadol hydrochloride 50 | [facility] | | | MG Oral Tablet | | + + + + | 2021-10-20 00:00 | tramadol hydrochloride 50 | [facility] | | | MG Oral Tablet | | + + + + | 2021-10-04 00:00 | rabeprazole sodium 20 MG | [facility] | | | Delayed Release Oral Tablet | | | | [Aciphe | | + + + + | 2021-10-20 00:00 | rabeprazole sodium 20 MG | [facility] | | | Delayed Release Oral Tablet | | | | [Aciphe | | + + + + | 2021-10-04 00:00 | warfarin sodium 3 MG Oral | [facility] | | | Tablet | | + + + + | 2021-10-20 00:00 | warfarin sodium 3 MG Oral | [facility] | | | Tablet | | + + + + | 2021-10-04 00:00 | amitriptyline | [facility] | | | hydrochloride 100 MG Oral | | | | Tablet | | + + + + | 2021-10-20 00:00 | amitriptyline | [facility] | | | hydrochloride 100 MG Oral | | | | Tablet | | + + + + | 2021-10-04 00:00 | colchicine 0.6 MG Oral | [facility] | | | Tablet [Colcrys] | | + + + + | 2021-10-20 00:00 | colchicine 0.6 MG Oral | [facility] | | | Tablet [Colcrys] | | + + + + | 2021-10-04 00:00 | Osmotic 24 HR metformin | [facility] | | | hydrochloride 500 MG | | | | Extended Releas | | + + + + | 2021-10-20 00:00 | Osmotic 24 HR metformin | [facility] | | | hydrochloride 500 MG | | | | Extended Releas | | + + + + | 2021-10-04 00:00 | oxybutynin chloride 5 MG | [facility] | | | Oral Tablet | | + + + + | 2021-10-20 00:00 | oxybutynin chloride 5 MG | [facility] | | | Oral Tablet | | + + + + | 2021-10-04 00:00 | 24 HR metoprolol succinate | [facility] | | | 25 MG Extended Release | | | | Oral Table | | + + + + | 2021-10-20 00:00 | 24 HR metoprolol succinate | [facility] | | | 25 MG Extended Release | | | | Oral Table | | + + + + | 2021-10-04 00:00 | Lacticaseibacillus | [facility] | | | rhamnosus GG [id number] | | | | UNT Oral Capsule | | + + + + | 2021-10-20 00:00 | Lacticaseibacillus | [facility] | | | rhamnosus GG [id number] | | | | UNT Oral Capsule | | + + + + | 2021-10-04 00:00 | ascorbic acid 113 MG / | [facility] | | | beta carotene 7160 MG / | | | | cuprous oxide | | + + + + | 2021-10-20 00:00 | ascorbic acid 113 MG / | [facility] | | | beta carotene 7160 MG / | | | | cuprous oxide | | + + + + | 2021-10-04 00:00 | hydromorphone | [facility] | | | hydrochloride 2 MG Oral | | | | Tablet | | + + + + | 2021-10-20 00:00 | hydromorphone | [facility] | | | hydrochloride 2 MG Oral | | | | Tablet | | + + + + | 2021-10-04 00:00 | levothyroxine sodium 0.05 | [facility] | | | MG Oral Tablet | | + + + + | 2021-10-20 00:00 | levothyroxine sodium 0.05 | [facility] | | | MG Oral Tablet | | + + + + | 2021-10-04 00:00 | donepezil hydrochloride 10 | [facility] | | | MG Oral Tablet [Aricept] | | + + + + | 2021-10-20 00:00 | donepezil hydrochloride 10 | [facility] | | | MG Oral Tablet [Aricept] | | + + + + Problems + + + + | date | description | facility | + + + + | 2013-11-29 00:00 | Colitis, Clostridium | [facility] | | | difficile | | + + + + | 2013-11-29 00:00 | Clostridium difficile | [facility] | | | enterocolitis | | + + + + | 2013-12-24 00:00 | Nausea | [facility] | + + + + | 2013-12-24 00:00 | Medication adverse effect | [facility] | + + + + | 2018-03-02 00:00 | Skin tear of left forearm | [facility] | | | without complication | | + + + + | 2018-05-17 00:00 | Confusion | [facility] | + + + + | 2018-05-17 00:00 | Bilateral otitis media | [facility] | + + + + | 2021-02-03 00:00 | Cellulitis of left lower | [facility] | | | leg | | + + + + | 2021-10-04 00:00 | Atrial fibrillation with | [facility] | | | slow ventricular response | | + + + + | 2021-10-20 00:00 | Skin tear of right lower | [facility] | | | leg without complication | | + + + + | 2022-08-01 09:30 | UNSPECIFIED ATRIAL FLUTTER | [facility] | | | | | + + + + | 2022-08-01 09:30 | ENCOUNTER FOR THERAPEUTIC | [facility] | | | DRUG LEVEL MONITORING | | + + + + | 2022-08-01 09:30 | [facility] (CURRENT) USE OF | [facility] | | | ANTICOAGULANTS | | + + + + | 2022-08-29 09:35 | UNSPECIFIED ATRIAL FLUTTER | [facility] | | | | | + + + + | 2022-08-29 09:35 | ENCOUNTER FOR THERAPEUTIC | [facility] | | | DRUG LEVEL MONITORING | | + + + + | 2022-08-29 09:35 | [employer] (CURRENT) USE OF | [facility] | | | ANTICOAGULANTS | | + + + + | 2022-09-26 09:00 | UNSPECIFIED ATRIAL | [facility] | | | FIBRILLATION | | + + + + | 2022-09-26 09:00 | ENCOUNTER FOR THERAPEUTIC | [facility] | | | DRUG LEVEL MONITORING | | + + + + | 2022-09-26 09:00 | [facility] (CURRENT) USE OF | [facility] | | [...] (missing) | | filtration | 18:27 | [facility] | | | | | rate/1.73 sq [...] | 2021-10-04 00:00 | Never smoker | [facility] | + + + + | 2021-10-20 00:00 | Never smoker | [facility] | + + + + Vital Signs No information."
[2022-10-19 14:35] LABS: BASOPHILS 0.6 % (0-2); HEMATOCRIT 34.3 % (35.0-50.0); HEMOGLOBIN 11.4 g/dL (12.0-18.0); LYMPHOCYTES 20.4 % (24-44); MCH 31.6 (27-36); MCHC 33.2 g/dl (30-36); MCV 95.2 fl (81-99); MONOCYTES 6.9 % (0-12); NEUTROPHILS 70.1 % (39-80); PLATELET COUNT 209 K/uL (140-440); RBC 3.61 M/ul (4.3-5.7); RDW 15.9 (10.5-15.0)
[2022-10-19 14:49] LABS: ALBUMIN/GLOBULIN RATIO 0.94 (1.1-2.4); ANION GAP 12.2 (7-21); BILIRUBIN, TOTAL 0.3 ng/dL (0.2-1.0); BUN/CREATININE RATIO 24.57 (6.0-28.6); CALCIUM 9.1 mg/dL (8.5-10.1); CREATININE, SERUM 1.18 mg/dL (0.55-1.02); POTASSIUM 4.2 mmol/L (3.5-5.1); PROTEIN, TOTAL 6.2 g/dL (6.4-8.2)
[2022-10-19 16:59] VITALS: BP 150/74
== END 2022-10-19 17:03 | disposition home or self-care (01) ==
LOC: ED 12:04
PROVIDERS: Emergency Medicine
DX: S41.112D Laceration without foreign body of left upper arm, subsequent encounter (principal); L08.9 Local infection of the skin and subcutaneous tissue, unspecified; X58.XXXD Exposure to other specified factors, subsequent encounter; I10 Essential (primary) hypertension; E11.9 Type 2 diabetes mellitus without complications; E78.5 Hyperlipidemia, unspecified
CPT/HCPCS: 36415; 80053; 85025; 99283

== ENCOUNTER 2022-11-28 13:27 | Emergency (ER) | payer MEDICARE, OTHER ==
[~2022-11-28] VITALS: Ht 162.6 cm; Wt 86.2 kg
[2022-11-28 13:56] LABS: BASOPHILS 0.2 % (0-2); HEMATOCRIT 35.5 % (35.0-50.0); HEMOGLOBIN 11.7 g/dL (12.0-18.0); LYMPHOCYTES 9.7 % (24-44); MCH 31.3 (27-36); MCV 94.9 fl (81-99); NEUTROPHILS 88.1 % (39-80); PLATELET COUNT 271 K/uL (140-440); RBC 3.74 M/ul (4.3-5.7); RDW 15.4 (10.5-15.0)
[2022-11-28 14:05] LABS: BILIRUBIN, URINE NEGATIVE (negative); BLOOD/HGB, URINE NEGATIVE (Negative); KETONE, URINE NEGATIVE (Negative); LEUK ESTERASE, URINE NEGATIVE (negative); NITRITE, URINE NEGATIVE (negative); PH, URINE 6.5 (5-7)
[2022-11-28 14:10] LABS: ALBUMIN 3.1 g/dL (3.4-5.0); ALBUMIN/GLOBULIN RATIO 1.11 (1.1-2.4); ANION GAP 14.2 (7-21); BILIRUBIN, TOTAL 0.4 ng/dL (0.2-1.0); BUN/CREATININE RATIO 23.75 (6.0-28.6); CALCIUM 9.7 mg/dL (8.5-10.1); CREATININE, SERUM 1.6 mg/dL (0.55-1.02); POTASSIUM 4.2 mmol/L (3.5-5.1); PROTEIN, TOTAL 5.9 g/dL (6.4-8.2)
[2022-11-28 14:14] LABS: INR 2.23 (0.80-1.30); PROTIME 23.9 Sec (11.2-14.2)
[2022-11-28 14:15] LABS: BACTERIA, URINE NONE SEEN /hpf (negative); CASTS, URINE NONE SEEN \\lpf; COLLECTION TYPE, URINE CLEAN CATCH; CRYSTALS, URINE NONE SEEN (0-1+); EPITHELIAL CELLS, URINE NONE SEEN /lpf (0-1+); REFLEX CULTURE, URINE No (No)
[2022-11-28 15:18] LABS: INFLUENZA B NAA NEGATIVE (NEGATIVE); RESPIRATORY SYNCYTIAL VIR NAA NEGATIVE (NEGATIVE)
[2022-11-28 16:30] VITALS: BP 174/74
== END 2022-11-28 16:53 | disposition home or self-care (01) ==
LOC: ED 13:27
PROVIDERS: Emergency Medicine
DX: F03.90 Unspecified dementia, unspecified severity, without behavioral disturbance, psychotic disturbance, mood disturbance, and anxiety (principal); I10 Essential (primary) hypertension; E11.9 Type 2 diabetes mellitus without complications; E78.5 Hyperlipidemia, unspecified; Z88.2 Allergy status to sulfonamides; Z88.5 Allergy status to narcotic agent; Z88.8 Allergy status to other drugs, medicaments and biological substances; Z79.899 Other long term (current) drug therapy; Z79.84 Long term (current) use of oral hypoglycemic drugs; Z79.01 Long term (current) use of anticoagulants; Z79.890 Hormone replacement therapy; Z20.822 Contact with and (suspected) exposure to COVID-19
CPT/HCPCS: 36415; 71045; 80053; 81001; 85025; 85610; 87502; U0002